=== PATIENT | female | born 1990 | race Native Hawaiian/Other Pacific Islander ===

== ENCOUNTER 2016-07-08 15:14 | Emergency (ER) | payer BC, OTHER ==
[~2016-07-08] VITALS: Ht 152.4 cm; Wt 81.6 kg
[~2016-07-08 15:14] MED LIST: ACHD5005 PO; AGM875T PO; DCS100C PO; FERR-47 PO; FRS325T PO; HYDR-34 PO; HYDR-3714 PO; IBP600T1 PO; IBUP-1773 PO; Ibuprofen PO; NITR-65 PO; OXYC-12 PO; PREN1TAB25 PO; PREN1TAB39 PO; SMT80CT PO
[2016-07-08] MEDS ORDERED: NS IV 1000 ML 1,000 ML IV ONE (16:06)
[2016-07-08 16:10] LABS: BASOPHILS % (AUTO) 0 % (0-10); EOSINOPHILS # (AUTO) 0.1 10^3/uL (0.0-0.3); EOSINOPHILS % (AUTO) 1 % (0-10); LYMPHOCYTES # (AUTO) 1.2 X 10^3 (1.0-4.0); LYMPHOCYTES % (AUTO) 14 % (12-44); MEAN CORPUSCULAR HEMOGLOBIN 28 PG (25-34); MEAN CORPUSCULAR HGB CONC 34 G/DL (32-36); MEAN CORPUSCULAR VOLUME 83 FL (80-99); MEAN PLATELET VOLUME 10.3 FL (7.4-10.4); MONOCYTES # (AUTO) 0.4 X 10^3 (0.0-1.0); MONOCYTES % (AUTO) 4 % (0-12); NEUTROPHILS # (AUTO) 6.9 X 10^3 (1.8-7.8); NEUTROPHILS % (AUTO) 80 % (42-75); PLATELET COUNT 180 10^3/uL (130-400); RED CELL DISTRIBUTION WIDTH 13.6 % (10.0-14.5); WHITE BLOOD COUNT 8.7 10^3/uL (4.3-11.0)
[2016-07-08 16:27] LABS: BILIRUBIN,URINE NEGATIVE (NEGATIVE); KETONES,URINE 3+ (NEGATIVE); LEUKOCYTE ESTERASE ,URINE 1+ (NEGATIVE); NITRITE,URINE NEGATIVE (NEGATIVE); PH,URINE 6 (5-9); PROTEIN,URINE 2+ (NEGATIVE); UROBILINOGEN,URINE 1 MG/DL (NORMAL)
[2016-07-08 16:27] LABS: ALANINE AMINOTRANSFERASE 13 U/L (0-55); ALBUMIN 3.4 G/DL (3.2-4.5); ANION GAP 11 MMOL/L (5-14); ASPARTATE AMINO TRANSFERASE 16 U/L (5-34); BILIRUBIN,TOTAL 0.4 MG/DL (0.1-1.0); BLOOD UREA NITROGEN 8 MG/DL (7-18); BUN/CREATININE RATIO 11; CARBON DIOXIDE 20 MMOL/L (21-32); CHLORIDE 108 MMOL/L (98-107); GFR ESTIMATED > 60; GLUCOSE 110 MG/DL (70-105); LIPASE 8 U/L (8-78); POTASSIUM 2.9 MMOL/L (3.6-5.0); SODIUM 139 MMOL/L (135-145); TOTAL PROTEIN 6.4 G/DL (6.4-8.2)
[2016-07-08 16:44] LABS: WBC,URINE 0-2 /HPF
[2016-07-08] MEDS ORDERED: DIPHENOXYLATE/ATROPINE 2.5MG/0.025MG (LOMOTIL) TAB PO ONE (16:45)
[2016-07-08] MEDS ORDERED: KCL 10 MEQ TAB (MICRO K) PO ONE (17:15)
--- NOTE | 2016-07-08 18:18 | Diagnostic Imaging Report ---
INDICATION: Pain COMPARISON: None available TECHNIQUE: Limited OB ultrasound dated 07/08/2016. FINDINGS: A single live intrauterine gestation is identified. position varies throughout the examination. biometrics are symmetric and consistent with an estimated gestational age of 21 weeks and 1 day. Therefore, there is an estimated due date based upon this examination of 11/17/2016. The heart rate is documented at 146 beats per minute. The cervix is within normal limits measuring 4.5 cm. The placenta is posteriorly located and on the right without evidence of placenta previa or significant fluid undermining the placenta. IMPRESSION: Single live intrauterine gestation at an estimated gestational age of 21 weeks and 1 day. Therefore, estimated due date based on this examination of 11/17/2016. No definite anomaly identified, though evaluation is limited. Recommend a full anatomic survey if a full anatomic survey has not previously been performed. Dictated by: Dictated on workstation # [id number]
--- NOTE | 2016-07-08 18:23 | ED GI ---
General Chief Complaint: Abdominal/GI Problems Stated Complaint: ABD PAIN;VOMITING Nursing Triage Note: PT REPORTS LLQ PAIN, N/V/D SINCE LAST NOC. PT REPORTS THAT SHE IS APPROX 3 MONTHS . SHE DENIES ANY BLEEDING. Sepsis Screen: No Definite Risk Source of Information: Patient Exam Limitations: No Limitations History of Present Illness Time Seen By Provider: 15:35 Initial Comments This 26-year-old woman presents to the emergency room with complaints of left lower quadrant pain with associated nausea, vomiting, and diarrhea since last night. She believes she is about 3 months . The patient is sharp in nature and is intermittent. Episodes of diarrhea tend to improve the pain. She denies any bleeding. Dr. Hastings is her assigned pipelaying fitter but she has not yet had her first obstetrical appointment. Allergies and Home Medications Allergies Coded Allergies: No Known Drug Allergies (Unverified , 06/21/13) Home Medications Diphenoxylate HCl/Atropine 1 Each Tablet #8 1 EACH PO Q4H PRN PRN DIARRHEA Prescribed by: BENY REY on 07/08/161823 Doxylamine/Pyridoxine HCl 1 Each Tablet. #30 2 EACH PO HS PRN PRN NAUSEA/ VOMITING Prescribed by: BENY REY on 07/08/161823 Review of Systems Constitutional: no symptoms reported EENTM: No Symptoms Reported Respiratory: No Symptoms Reported Cardiovascular: No Symptoms Reported Gastrointestinal: See HPI Genitourinary: See HPI Musculoskeletal: no symptoms reported Skin: no symptoms reported Psychiatric/Neurological: No Symptoms Reported Endocrine: No Symptoms Reported Past Pgznrgh-Glvgxx-Bpxvpu Hx Patient Social History Alcohol Use: Denies Use Recreational Drug Use: No Smoking Status: Never a Smoker 2nd Hand Smoke Exposure: No Recent Foreign Travel: No Contact w/Someone Who Travel: No Recent Infectious Disease Expo: No Recent Hopitalizations: No Immunizations Up To Date Tetanus Booster (TDap): Less than 5yrs Date of Influenza Vaccine: May 29, 2013 Seasonal Allergies Seasonal Allergies: No Surgeries HX Surgeries: Yes ( X3) Respiratory Hx Respiratory Disorders: No Cardiovascular Hx Cardiac Disorders: No Neurological Hx Neurological Disorders: No Reproductive System Hx Reproductive Disorders: No Female Reproductive Disorders: Ovarian Cyst Genitourinary Hx Genitourinary Disorders: No Gastrointestinal Hx Gastrointestinal Disorders: No Musculoskeletal Hx Musculoskeletal Disorders: No Endocrine Hx Endocrine Disorders: No HEENT HX ENT Disorders: No Cancer Hx Cancer: No Psychosocial Hx Psychiatric Problems: No Integumentary HX Skin/Integumentary Disorder: No Blood Transfusions Hx Blood Disorders: No Adverse Reaction to a Blood Tr: No Family Medical History Significant Family History: No Pertinent Family Hx Family Medial History: No Family History of: Abdominal aortic aneurysm Cancer Family history: Alzheimer's disease Family history: Breast disease Family history: Cardiovascular disease Family history: Diabetes mellitus Family history: Gastrointestinal disease Family history: Thyroid disorder History of - disorder Myocardial infarction Seizure disorder Stroke Physical Exam Vital Signs VS - Last 72 Hours, by Label 07/08/16 15:37 Temp 98.8 Pulse 90 Resp 16 B/P 116/60 Pulse Ox 98 O2 Delivery Room Air Capillary Refill : Less Than 3 Seconds General Appearance: WD/WN no apparent distress HEENT: PERRL/EOMI normal ENT inspection Neck: normal inspection Respiratory: lungs clear normal breath sounds no respiratory distress Cardiovascular: regular rate, rhythm no edema no murmur Gastrointestinal: normal bowel sounds soft tenderness (left lower quadrant) Extremities: normal inspection no pedal edema Neurologic/Psychiatric: machine chocolate molder II-XII nml as tested no motor/sensory deficits alert normal mood/affect oriented x 3 Skin: normal color warm/dry Progress/Results/Core Measures Results/Orders Lab Results Laboratory Tests Test 07/08/16 16:00 07/08/16 16:17 Range/Units Alanine Aminotransferase (ALT/SGPT) 13 0-55 U/L Albumin 3.4 3.2-4.5 G/DL Alkaline Phosphatase 49 40-136 U/L Anion Gap 11 5-14 MMOL/L Aspartate Amino Transf (AST/SGOT) 16 5-34 U/L BUN/Creatinine Ratio 11 Basophils # (Auto) 0.0 0.0-0.1 10^3/uL Basophils (%) (Auto) 0 0-10 % Blood Urea Nitrogen 8 7-18 MG/DL Calcium Level 8.0 L 8.5-10.1 MG/DL Carbon Dioxide Level 20 L 21-32 MMOL/L Chloride Level 108 H 98-107 MMOL/L Creatinine 0.70 0.60-1.30 MG/DL Eosinophils # (Auto) 0.1 0.0-0.3 10^3/uL Eosinophils (%) (Auto) 1 0-10 % Estimat Glomerular Filtration Rate > 60 Glucose Level 110 H 70-105 MG/DL Hematocrit 33 L 35-52 % Hemoglobin 11.2 L 11.5-16.0 G/DL Lipase 8 8-78 U/L Lymphocytes # (Auto) 1.2 1.0-4.0 X 10^3 Lymphocytes (%) (Auto) 14 12-44 % Mean Corpuscular Hemoglobin 28 25-34 PG Mean Corpuscular Hemoglobin Concent 34 32-36 G/DL Mean Corpuscular Volume 83 80-99 FL Mean Platelet Volume 10.3 7.4-10.4 FL Monocytes # (Auto) 0.4 0.0-1.0 X 10^3 Monocytes (%) (Auto) 4 0-12 % Neutrophils # (Auto) 6.9 1.8-7.8 X 10^3 Neutrophils (%) (Auto) 80 H 42-75 % Platelet Count 180 130-400 10^3/uL Potassium Level 2.9 L 3.6-5.0 MMOL/L Red Blood Count 4.00 L 4.35-5.85 10^6/uL Red Cell Distribution Width 13.6 10.0-14.5 % Serum Test, Qualitative POSITIVE NEGATIVE Sodium Level 139 135-145 MMOL/L Total Bilirubin 0.4 0.1-1.0 MG/DL Total Protein 6.4 6.4-8.2 G/DL White Blood Count 8.7 4.3-11.0 10^3/uL Urine Bacteria TRACE /HPF Urine Bilirubin NEGATIVE NEGATIVE Urine Casts NONE /LPF Urine Clarity SLIGHTLY CLOUDY Urine Color YELLOW Urine Crystals NONE /LPF Urine Culture Indicated NO Urine Glucose (UA) NEGATIVE NEGATIVE Urine Ketones 3+ H NEGATIVE Urine Leukocyte Esterase 1+ H NEGATIVE Urine Mucus MODERATE H /LPF Urine Nitrite NEGATIVE NEGATIVE Urine Protein 2+ H NEGATIVE Urine RBC NONE /HPF Urine RBC (Auto) NEGATIVE NEGATIVE Urine Specific [place] 1.025 H 1.016-1.022 Urine Squamous Epithelial Cells 5-10 /HPF Urine Urobilinogen 1 NORMAL MG/DL Urine WBC 0-2 /HPF Urine pH 6 5-9 My Orders Orders-BENY ALFONSO MD Saline Lock/Iv-Start (07/08/16 15:35) Cbc With Automated Diff (07/08/16 15:35) Comprehensive Metabolic Panel (07/08/16 15:35) Hcg,Qualitative Serum (07/08/16 15:35) Lipase (07/08/16 15:35) Ua Culture If Indicated (07/08/16 15:35) Ns Iv 1000 Ml (Sodium Chloride 0.9%) (07/08/16 16:06) Diphenoxylate/Atropine Tablet (Lomotil T (07/08/16 16:45) Potassium Chloride (Tablet) (Klor Con Ta (07/08/16 17:15) Us Ob Preg Late(14-40wks)45671 (07/08/16 17:08) Medications Given in ED Current Medications Medications Dose Ordered Sig/Kayla Route Start Time Stop Time Status Last Admin Dose Admin Diphenoxylate HCl/ Atropine 2 ea ONCE ONCE PO 07/08/16 16:45 07/08/16 16:46 DC 07/08/16 16:57 2 EA Potassium Chloride 40 meq ONCE ONCE PO 07/08/16 17:15 07/08/16 17:16 DC 07/08/16 17:29 40 MEQ Sodium Chloride 1,000 ml @ 0 mls/hr Q0M ONCE IV 07/08/16 16:06 07/08/16 16:07 DC 07/08/16 16:20 0 MLS/HR Vital Signs/I&O Vital Sign - Last 12Hours 07/08/16 15:37 Temp 98.8 Pulse 90 Resp 16 B/P 116/60 Pulse Ox 98 O2 Delivery Room Air Blood Pressure Mean: 78 Progress Note : Progress Note This patient received a liter of IV fluids. She was found to be hypokalemic and received 40 mEq of potassium orally. Ultrasound was ordered and she was found to be approximately 21 weeks gestational age with a normal viable gestation. Lomotil was given for diarrhea and cramping which did improve her symptoms. She did not require treatment for nausea. Diagnostic Imaging Diagonstic Imaging: Ultrasound Plain Films/CT/US/NM/MRI: abdomen Comments NAME: ODILON RAJAN [facility] REC#: [id number] PT STATUS: REG ER : 1990 PHYSICIAN: BENY ALFONSO MD ADMIT DATE: 07/08/16/ER Draft Date of Exam:07/08/16 US OB PREG LATE(14-40WKS)[id number] INDICATION: Pain COMPARISON: None available TECHNIQUE: Limited OB ultrasound dated 07/08/2016. FINDINGS: A single live intrauterine gestation is identified. position varies throughout the examination. biometrics are symmetric and consistent with an estimated gestational age of 21 weeks and 1 day. Therefore, there is an estimated due date based upon this examination of 11/17/2016. The heart rate is documented at 146 beats per minute. The cervix is within normal limits measuring 4.5 cm. The placenta is posteriorly located and on the right without evidence of placenta previa or significant fluid undermining the placenta. IMPRESSION: Single live intrauterine gestation at an estimated gestational age of 21 weeks and 1 day. Therefore, estimated due date based on this examination of 11/17/2016. No definite anomaly identified, though evaluation is limited. Recommend a full anatomic survey if a full anatomic survey has not previously been performed. Dictated on workstation # [id number] Dict: 07/08/16 1810 Trans: 07/08/16 1818 KB [id number] Interpreted by: SERGEI HUNT MD Departure Impression Impression: Primary Impression: Nausea vomiting and diarrhea Additional Impressions: Left lower quadrant pain Hypokalemia Disposition: HOME, SELF-CARE Condition: Improved Departure-Patient Inst. Decision time for Depature: 18:15 Referrals: OSMANI RICHARD DO (PCP/Family) Primary Care Physician Patient Instructions: Hypokalemia Add. Discharge Instructions: Drink plenty of clear liquids and gradually advance your diet as tolerated. Consume some food and beverages high in potassium. See list attached. Follow- up with your pipelaying fitter as soon as possible. Return to the emergency room if symptoms worsen. Use Diclegis as prescribed to treat nausea. Use Lomotil as prescribed to treat cramping and diarrhea. All discharge instructions reviewed with patient and/or family. Voiced understanding. Scripts Doxylamine/Pyridoxine HCl (Diclegis Dr 10-10 mg Tablet)1 Each Tablet.dr2 Each PO HS PRN NAUSEA/VOMITING #30 TAB Prov:BENY ALFONSO MD 07/08/16 Diphenoxylate HCl/Atropine (Lomotil 2.5-0.025 mg Tablet)1 Each Tablet1 Each PO Q4H PRN DIARRHEA #8 TAB Prov:BENY ALFONSO MD 07/08/16 Copy Copies To 1: ANN-MARIE HASTINGS MD, JOSHUA T MD Jul 08, 2016 18:23
[2016-07-08] MEDS ORDERED: DOXY1TAB3 PO (18:24)
[2016-07-08] MEDS ORDERED: DIPH1TAB PO (18:24)
[2016-07-08 18:34] VITALS: BP 118/74
== END 2016-07-08 18:35 | disposition home or self-care (01) ==
LOC: EDUNIT# 15:14 → ER 15:16
DX: O21.0 Mild hyperemesis gravidarum (principal); O99.612 Diseases of the digestive system complicating pregnancy, second trimester; R19.7 Diarrhea, unspecified; O26.892 Other specified pregnancy related conditions, second trimester; R10.32 Left lower quadrant pain; O99.281 Endocrine, nutritional and metabolic diseases complicating pregnancy, first trimester; E87.6 Hypokalemia; Z3A.21 21 weeks gestation of pregnancy
CPT/HCPCS: 36415; 76805; 80053; 81000; 83690; 84703; 85025; 96360

== ENCOUNTER → 2016-07-23 | Outpatient (CLI) | payer BC ==
[~2016-07-23] MED LIST changes: +DIPH1TAB PO; +DOXY1TAB3 PO
--- NOTE | 2016-07-23 13:52 | Diagnostic Imaging Report ---
INDICATION: Undergoing evaluation for anatomical evaluation. TECHNIQUE: Multiple real-time grayscale images were obtained of the gravid uterus. CORRELATION STUDY: 07/08/2016. FINDINGS: Cervical length is 5.6 cm. Fetus is currently in cephalic presentation. Normal amount of amniotic fluid. The placenta is positioned along the fundal aspect and without previa. anatomical evaluation is unremarkable. However, the spine cannot be well assessed given positioning. Biometrical measurements are as follows: Biparietal diameter 5.52 cm, age 22 weeks 6 days. Head circumference 20.21 cm, age 22 weeks 3 days. Abdominal circumference 17.82 cm, age 22 weeks 5 days. Femur length 3.96 cm, age 22 weeks 6 days. Sonographic estimated age: 22 weeks 5 days. Sonographic estimated date of delivery: 11/21/2016. heart rate: 149 BPM Estimated Weight: 526 gm (+/- 77 gm) LMP Percentile: 18% IMPRESSION: 1. Single intrauterine in a cephalic presentation. Sonographic estimated age of 22 weeks 5 days for an estimated date of delivery of November 21, 2016. No abnormality is noted at this time. However, the spine is not able to be well assessed owing to positioning. Dictated by: Dictated on workstation # [id number]
== END ==
LOC: RAD 11:41
PROVIDERS: ATTEND Family Medicine
DX: Z34.82 Encounter for supervision of other normal pregnancy, second trimester (principal)
CPT/HCPCS: 76805

== ENCOUNTER → 2016-08-20 | Outpatient (CLI) | payer BC ==
--- NOTE | 2016-08-20 14:03 | Diagnostic Imaging Report ---
INDICATION: Followup incomplete visualization of the spine. COMPARISON: 07/23/2016. DISCUSSION: Transabdominal sonographic evaluation of the gravid uterus was performed. Single live intrauterine is again demonstrated at 27 weeks 2 days by the previous ultrasound. EDC is 11/17/2016. presentation is cephalic. Normal amniotic fluid index measuring 12.8 cm. Grade 2 placenta is located within the fundus with no placenta previa. heart rate measures 124 beats per minute. There is good visualization of the spine on today's exam which appears within normal limits. No acute abnormality identified. IMPRESSION: 1. Normal appearance of the spine. Dictated by: Dictated on workstation # [id number]
== END ==
LOC: RAD 11:44
PROVIDERS: ATTEND Family Medicine
DX: Z36 Encounter for antenatal screening of mother (principal)
CPT/HCPCS: 76816

== ENCOUNTER 2017-06-01 11:52 | Emergency (ER) | payer BC ==
[~2017-06-01] VITALS: Ht 152.4 cm; Wt 83.9 kg
--- OUTSIDE RECORDS SUMMARY | 2017-06-01 12:09 | XMS REPORT ---
Author Author ANN-MARIE HASTINGS [facility] e[employer] Address Unknown Phone Unavailable Care Team Providers Care Labor Operator Name Role Phone ANN-MARIE HASTINGS Unavailable Allergies No Known Allergies Problems Problem Type Condition Code Onset Dates Condition Status Problem Trichomonal vulvovaginitis 131.01 Active Medications No Known Medications Results No Known Results Summary Purpose eClinicalWorks Submission
--- OUTSIDE RECORDS SUMMARY | 2017-06-01 12:10 | XMS REPORT ---
Author Author MAHESH MATTHEW [facility] eClinical[employer] Address Unknown Phone Unavailable Care Team Providers Care Crown Pouncer Name Role Phone MAHESH MATTHEW CP Unavailable Allergies, Adverse Reactions, Alerts Substance Reaction Event Type N.K.D.A. Info Not Available Non Drug Allergy Problems Problem Type Condition Code Onset Dates Condition Status Assessment Sprain of unspecified ligament of right ankle, subsequent encounter S93.401D Active Problem Trichomonal vulvovaginitis 131.01 Active Medications No Known Medications Procedures Procedure Coding System Code Date Office Visit, Est Pt., Level 3 CPT-4 42485 Feb 13, 2015 Vital Signs Date/Time: Feb 13, 2015 Temperature 98.7 F Weight 221.8 lbs Height 60 in BMI 43.31 Index Blood Pressure Diastolic 80 mmHg Blood Pressure Systolic 100 mmHg Cardiac Monitoring Heart Rate 84 bpm Results No Known Results Summary Purpose eClinicalWorks Submission
--- OUTSIDE RECORDS SUMMARY | 2017-06-01 12:10 | XMS REPORT ---
Author Author ANN-MARIE HASTINGS [facility] eClinical[employer] Address Unknown Phone Unavailable Care Team Providers Care Printing Film Stripper Name Role Phone ANN-MARIE HASTINGS CP Unavailable Allergies, Adverse Reactions, Alerts Substance Reaction Event Type N.K.D.A. Info Not Available Non Drug Allergy Problems Problem Type Condition ICD-9 Code Onset Dates Condition Status Assessment Routine follow-up V24.2 Active Assessment Encounter for Depo-Provera contraception V25.49 Active Problem Trichomonal vulvovaginitis 131.01 Active Medications No Known Medications Procedures Procedure Coding System Code Date Office Visit, Est Pt., Level 3 CPT-4 71883 Jan 03, 2015 DEPO PROVERA (150 MG/ML) CPT-4 J1050 Jan 03, 2015 URINE TEST CPT-4 17246 Jan 03, 2015 THER/PROPH/DIAG INJ, SC/IM CPT-4 63795 Jan 03, 2015 Vital Signs Date/Time: Jan 03, 2015 Temperature 97.0 F Weight 214.8 lbs Height 60 in BMI 41.95 Index Blood Pressure Diastolic 74 mmHg Blood Pressure Systolic 110 mmHg Cardiac Monitoring Heart Rate 80 bpm Results Name Result Date Reference Range Unit Abnormality Flag TEST, URINE (IN HOUSE) Summary Purpose eClinicalWorks Submission
--- OUTSIDE RECORDS SUMMARY | 2017-06-01 12:10 | XMS REPORT ---
Author Author ANN-MARIE HASTINGS [facility] Address [address] [place] [address] Care Team Providers Care Industrial Sociologist Name Role Phone ANN-MARIE HASTINGS Unavailable PROBLEMS Type Condition ICD9-CM Code [id number]-GW Code Onset Dates Condition Status SNOMED Code Problem Urinary tract infection affecting care of mother in second trimester, antepartum O23.42 Active 833702257 Problem History of delivery affecting O34.219 Active 226528572 Problem care, subsequent in second trimester Z34.82 Active 738771897 Problem Other specified diseases and conditions complicating , childbirth and the puerperium O99.89 Active 476906946 ALLERGIES No Information SOCIAL HISTORY Never Assessed PLAN OF CARE VITAL SIGNS MEDICATIONS Unknown Medications RESULTS No Results PROCEDURES No Known procedures IMMUNIZATIONS No Known Immunizations MEDICAL (GENERAL) HISTORY Type Description Date Surgical History C section X 4 Surgical History salpingo-oophorectomy 2015 Hospitalization History childbirth only
--- OUTSIDE RECORDS SUMMARY | 2017-06-01 12:10 | XMS REPORT ---
Author Author ANN-MARIE HASTINGS [facility] Address [address] [place] [address] Care Team Providers Care Pmo Manager Name Role Phone ANN-MARIE HASTINGS Unavailable PROBLEMS Type Condition ICD9-CM Code ZFW34-OA Code Onset Dates Condition Status SNOMED Code Problem Urinary tract infection affecting care of mother in second trimester, antepartum O23.42 Active 566793621 Problem History of delivery affecting O34.219 Active 461549289 Problem care, subsequent in second trimester Z34.82 Active 253887623 Problem Other specified diseases and conditions complicating , childbirth and the puerperium O99.89 Active 778297680 ALLERGIES No Information SOCIAL HISTORY Never Assessed PLAN OF CARE VITAL SIGNS MEDICATIONS Unknown Medications RESULTS No Results PROCEDURES No Known procedures IMMUNIZATIONS No Known Immunizations MEDICAL (GENERAL) HISTORY Type Description Date Surgical History C section X 4 Surgical History salpingo-oophorectomy 2015 Hospitalization History childbirth only
--- OUTSIDE RECORDS SUMMARY | 2017-06-01 12:10 | XMS REPORT ---
Author Author TATYANA PALOMINO [facility] e[employer] Address Unknown Phone Unavailable Care Team Providers Care Graphic Artist Name Role Phone TATYANA PALOMINO Unavailable Allergies, Adverse Reactions, Alerts Substance Reaction Event Type N.K.D.A. Info Not Available Non Drug Allergy Problems Problem Type Condition Code Onset Dates Condition Status Assessment Irregular bleeding N92.6 Active Assessment Encounter for Depo-Provera contraception Z30.42 Active Problem Surveillance of contraceptive injection Z30.42 Active Assessment Screening for malignant neoplasm of cervix Z12.4 Active Assessment Surveillance of contraceptive injection Z30.42 Active Assessment Routine screening for STI (sexually transmitted infection) Z11.3 Active Medications Medication Code System Code Instructions Start Date End Date Status Dosage Depo-Provera [facility] [address]-09 150 MG/ML Intramuscular Once every 3 months May 20, 2015 1 ml Procedures Procedure Coding System Code Date No Charge CPT-4 49205 May 20, 2015 TRICHOMONAS ASSAY W/OPTIC CPT-4 91500 May 20, 2015 URINE TEST CPT-4 29494 May 20, 2015 Office Visit, Est Pt., Level 3 CPT-4 25555 May 20, 2015 SPECIMEN HANDLING CPT-4 11429 May 20, 2015 THER/PROPH/DIAG INJ, SC/IM CPT-4 49027 May 20, 2015 DEPO PROVERA (150 MG/ML) CPT-4 J1050 May 20, 2015 Vital Signs Date/Time: May 20, 2015 Temperature 97.3 F Weight 232.6 lbs Height 60 in BMI 45.42 Index Blood Pressure Diastolic 68 mmHg Blood Pressure Systolic 104 mmHg Cardiac Monitoring Heart Rate 82 bpm Results Name Result Date Reference Range Unit Abnormality Flag TEST, URINE (IN HOUSE) ----RESULTS Negative [id number] ----Lot # [id number] ----Control + [id number] ----Exp date [id number] Summary Purpose eClinicalWorks Submission
--- OUTSIDE RECORDS SUMMARY | 2017-06-01 12:10 | XMS REPORT ---
Author Author OSMANI RICHARD [facility] Address [address] [place] [address] Care Team Providers Care Curb Worker Name Role Phone OSMANI RICHARD Unavailable PROBLEMS Type Condition ICD9-CM Code GWD42-GZ Code Onset Dates Condition Status SNOMED Code Problem Urinary tract infection affecting care of mother in second trimester, antepartum O23.42 Active 025456716 Problem History of delivery affecting O34.219 Active 906045944 Problem care, subsequent in second trimester Z34.82 Active 828900006 Problem Other specified diseases and conditions complicating , childbirth and the puerperium O99.89 Active 391550665 ALLERGIES No Known Allergies SOCIAL HISTORY Never Assessed PLAN OF CARE VITAL SIGNS MEDICATIONS Unknown Medications RESULTS No Results PROCEDURES No Known procedures IMMUNIZATIONS No Known Immunizations MEDICAL (GENERAL) HISTORY Type Description Date Surgical History C section X 4 Surgical History salpingo-oophorectomy 2015 Hospitalization History childbirth only
--- OUTSIDE RECORDS SUMMARY | 2017-06-01 12:10 | XMS REPORT ---
Author Author OSMANI RICHARD [facility] Address [address] [place] [address] Care Team Providers Care Seat Cover Installer Name Role Phone OSMANI RICHARD Unavailable PROBLEMS Type Condition ICD9-CM Code UVW72-UC Code Onset Dates Condition Status SNOMED Code Problem Urinary tract infection affecting care of mother in second trimester, antepartum O23.42 Active 347793170 Problem History of delivery affecting O34.219 Active 205295364 Problem care, subsequent in second trimester Z34.82 Active 045093324 Problem Other specified diseases and conditions complicating , childbirth and the puerperium O99.89 Active 439960936 ALLERGIES Unknown Allergies SOCIAL HISTORY No smoking Hx information available PLAN OF CARE VITAL SIGNS MEDICATIONS Unknown Medications RESULTS Name Result Date Reference Range TEST, URINE (IN HOUSE) 2016-06-15 RESULTS POSITIVE Lot # [id number] Control + Exp date PROCEDURES Procedure Date Ordered Related Diagnosis Body Site URINE TEST Jun 15, 2016 IMMUNIZATIONS No Known Immunizations
--- OUTSIDE RECORDS SUMMARY | 2017-06-01 12:10 | XMS REPORT ---
Author Author MAHESH MATTHEW Organization [employer] Address Unknown Phone Unavailable Care Team Providers Care Commercial Relationship Manager Name Role Phone MAHESH MATTHEW CP Unavailable Allergies, Adverse Reactions, Alerts Substance Reaction Event Type N.K.D.A. Info Not Available Non Drug Allergy Problems Problem Type Condition Code Onset Dates Condition Status Assessment Ankle pain, right M25.571 Active Problem Trichomonal vulvovaginitis 131.01 Active Medications No Known Medications Procedures Procedure Coding System Code Date Office Visit, Est Pt., Level 3 CPT-4 69036 Feb 27, 2015 Vital Signs Date/Time: Feb 27, 2015 Temperature 98.7 F Weight 226 lbs Height 60 in BMI 44.13 Index Blood Pressure Diastolic 70 mmHg Blood Pressure Systolic 110 mmHg Cardiac Monitoring Heart Rate 80 bpm Results No Known Results Summary Purpose eClinicalWorks Submission
--- OUTSIDE RECORDS SUMMARY | 2017-06-01 12:10 | XMS REPORT ---
Author Author ANN-MARIE HASTINGS [facility] Address [address] [place] [address] Care Team Providers Care Riveter Pneumatic Name Role Phone ANN-MARIE HASTINGS Unavailable PROBLEMS Type Condition ICD9-CM Code GGW52-FR Code Onset Dates Condition Status SNOMED Code Problem Urinary tract infection affecting care of mother in second trimester, antepartum O23.42 Active 501580146 Problem History of delivery affecting O34.219 Active 611728393 Problem care, subsequent in second trimester Z34.82 Active 493002019 Problem Other specified diseases and conditions complicating , childbirth and the puerperium O99.89 Active 127992629 ALLERGIES No Information SOCIAL HISTORY Never Assessed PLAN OF CARE VITAL SIGNS MEDICATIONS Unknown Medications RESULTS No Results PROCEDURES No Known procedures IMMUNIZATIONS No Known Immunizations MEDICAL (GENERAL) HISTORY Type Description Date Surgical History C section X 4 Surgical History salpingo-oophorectomy 2015 Hospitalization History childbirth only
--- OUTSIDE RECORDS SUMMARY | 2017-06-01 12:10 | XMS REPORT ---
Author Author JANIS ROGEL [facility] Address [address] [place] [address] Care Team Providers Care Cartridge Assembler Name Role Phone JANIS ROGEL Unavailable PROBLEMS Type Condition ICD9-CM Code [id number] Code Onset Dates Condition Status SNOMED Code Problem Urinary tract infection affecting care of mother in second trimester, antepartum O23.42 Active 246510020 Problem History of delivery affecting O34.219 Active 157595605 Problem care, subsequent in second trimester Z34.82 Active 993842340 Problem Other specified diseases and conditions complicating , childbirth and the puerperium O99.89 Active [id number] ALLERGIES No Information SOCIAL HISTORY Never Assessed PLAN OF CARE VITAL SIGNS MEDICATIONS Unknown Medications RESULTS No Results PROCEDURES Procedure Date Ordered Result Body Site Billing Notes on claim September 04, 2016 IMMUNIZATIONS No Known Immunizations MEDICAL (GENERAL) HISTORY Type Description Date Surgical History C section X 4 Surgical History salpingo-oophorectomy 2015 Hospitalization History childbirth only
--- OUTSIDE RECORDS SUMMARY | 2017-06-01 12:11 | XMS REPORT | Continuity of Care Document ---
Author Author [facility] Address Unknown Phone Unavailable Allergies Active Description Code Type Severity Reaction Onset Reported/Identified Relationship to Patient Clinical Status Yes No Known Drug Allergies [id number] Drug Allergy Unknown N/A 06/21/2013 Medications There is no data. Problems Date Dx Coded Attending Type Code Diagnosis Diagnosed By 09/04/2010 VICKIE GOLDBERG EVY A V72.41 Test Negative Result 09/04/2010 VICKIEGRISELDA GOLDBERG, EVY A V72.41 Test Negative Result 09/04/2010 ROSS RICHARD DOA K V72.41 Test Negative Result 09/04/2010 VICKIEGRISELDA GOLDBERG EVY A V72.41 Test Negative Result 09/04/2010 VICKIEGRISELDA GOLDBERG, EVY A V72.41 Test Negative Result 09/04/2010 VICKIEGRISELDA GOLDBERG, EVY A V72.41 Test Negative Result 09/04/2010 ANN-MARIE HASTINGS MD V72.41 Test Negative Result 05/19/2011 VICKIE MACHINE STOPPAGE FREQUENCY CHECKER, EVY A V04.81 FLU DX (3 YRS AND ABOVE, IM) 05/19/2011 VICKIE APRN, EVY A V22.1 , NORMAL OTHER 05/19/2011 VICKIE APRN, EVY A V72.42 Test Positive Result 05/19/2011 VICKIE APRN, EVY A V04.81 FLU DX (3 YRS AND ABOVE, IM) 05/19/2011 VICKIE APRN, EVY A V22.1 , NORMAL OTHER 05/19/2011 VICKIE APRN, EVY A V72.42 Test Positive Result 05/19/2011 RICHARD ROSS CALDWELLA K V04.81 FLU DX (3 YRS AND ABOVE, IM) 05/19/2011 RICHARD ROSS CALDWELLA K V22.1 , NORMAL OTHER 05/19/2011 RICHARD DO OSMANI K V72.42 Test Positive Result 05/19/2011 VICKIE GOLDBERG, EVY A V04.81 FLU DX (3 YRS AND ABOVE, IM) 05/19/2011 VICKIE MCKEONN, EVY A V22.1 , NORMAL OTHER 05/19/2011 VICKIE MCKEONN, EVY A V72.42 Test Positive Result 05/19/2011 VICKIE GOLDBERG, EVY A V04.81 FLU DX (3 YRS AND ABOVE, IM) 05/19/2011 VICKIE MCKEONN, EVY A V22.1 , NORMAL OTHER 05/19/2011 VICKIE GOLDBERG, EVY A V72.42 Test Positive Result 05/19/2011 VICKIE GOLDBERG, EVY A V04.81 FLU DX (3 YRS AND ABOVE, IM) 05/19/2011 VICKIE GOLDBERG, EVY A V22.1 , NORMAL OTHER 05/19/2011 VICKIE GOLDBERG, EVY A V72.42 Test Positive Result 05/19/2011 ANN-MARIE HASTINGS MD V04.81 FLU DX (3 YRS AND ABOVE, IM) 05/19/2011 AN-NMARIE HASTINGS MD V22.1 , NORMAL OTHER 05/19/2011 ANN-MARIE HASTINGS MD V72.42 Test Positive Result 05/30/2011 VICKIEEVY VILLALOBOS APRN A V04.3 RUBELLA NON-IMMUNE - NEED FOR VACCINATION 05/30/2011 VICKIEEVY Peter APRN A V04.3 RUBELLA NON-IMMUNE - NEED FOR VACCINATION 05/30/2011 OSMANI RICHARD DO V04.3 RUBELLA NON-IMMUNE - NEED FOR VACCINATION 05/30/2011 EVY JOHNSTON APRN A V04.3 RUBELLA NON-IMMUNE - NEED FOR VACCINATION 05/30/2011 EVY JOHNSTON APRN A V04.3 RUBELLA NON-IMMUNE - NEED FOR VACCINATION 05/30/2011 EVY JOHNSTON APRN A V04.3 RUBELLA NON-IMMUNE - NEED FOR VACCINATION 05/30/2011 ANN-MARIE HASTINGS MD V04.3 RUBELLA NON-IMMUNE - NEED FOR VACCINATION 06/05/2011 EVY JOHNSTON APRN A 131.01 VAGINITIS (TRICHOMONAS VAGINALIS) 06/05/2011 EVY JOHNSTON APRN A 616.10 Vaginitis Vulvovaginitis Unspecified 06/05/2011 EVY JOHNSTON APRN A V74.5 Std Screen 06/05/2011 EVY JOHNSTON APRN A V76.2 Cervical Cancer Screening (pap Smear) 06/05/2011 EVY JOHNSTON APRN A 131.01 VAGINITIS (TRICHOMONAS VAGINALIS) 06/05/2011 EVY JOHNSTON APRN A 616.10 Vaginitis Vulvovaginitis Unspecified 06/05/2011 EVY JOHNSTON APRN A V74.5 Std Screen 06/05/2011 EVY JOHNSTON APRN A V76.2 Cervical Cancer Screening (pap Smear) 06/05/2011 OSMANI RICHARD DO 131.01 VAGINITIS (TRICHOMONAS VAGINALIS) 06/05/2011 OSMANI RICHARD DO 616.10 Vaginitis Vulvovaginitis Unspecified 06/05/2011 OSMANI RICHARD DO V74.5 Std Screen 06/05/2011 OSMANI RICHARD DO V76.2 Cervical Cancer Screening (pap Smear) 06/05/2011 EVY JOHNSTON APRN A 131.01 VAGINITIS (TRICHOMONAS VAGINALIS) 06/05/2011 EVY JOHNSTON APRN A 616.10 Vaginitis Vulvovaginitis Unspecified 06/05/2011 EVY JOHNSTON APRN A V74.5 Std Screen 06/05/2011 EVY JOHNSTON APRN A V76.2 Cervical Cancer Screening (pap Smear) 06/05/2011 EVY JOHNSTON APRN A 131.01 VAGINITIS (TRICHOMONAS VAGINALIS) 06/05/2011 VICKIE GOLDBERG, EVY A 616.10 Vaginitis Vulvovaginitis Unspecified 06/05/2011 EVY JOHNSTON APRN A V74.5 Std Screen 06/05/2011 EVY JOHNSTON APRN A V76.2 Cervical Cancer Screening (pap Smear) 06/05/2011 EVY JOHNSTON APRN A 131.01 VAGINITIS (TRICHOMONAS VAGINALIS) 06/05/2011 EVY JOHNSTON APRN A 616.10 Vaginitis Vulvovaginitis Unspecified 06/05/2011 EVY JOHNSTON APRN V74.5 Std Screen 06/05/2011 EVY JOHNSTON APRN V76.2 Cervical Cancer Screening (pap Smear) 06/05/2011 ANN-MARIE HASTINGS MD 131.01 VAGINITIS (TRICHOMONAS VAGINALIS) 06/05/2011 ANN-MARIE HASTINGS MD 616.10 Vaginitis Vulvovaginitis Unspecified 06/05/2011 ANN-MARIE HASTINGS MD V74.5 Std Screen 06/05/2011 ANN-MARIE HASTINGS MD V76.2 Cervical Cancer Screening (pap Smear) 06/24/2011 EVY JOHNSTON APRN V77.1 Diabetes Screening 06/24/2011 EVY JOHNSTON APRN V78.0 Anemia Screening 06/24/2011 EVY JOHNSTON APRN V77.1 Diabetes Screening 06/24/2011 EVY JOHNSTON APRN V78.0 Anemia Screening 06/24/2011 OSMANI RICHARD DO K V77.1 Diabetes Screening 06/24/2011 OSMANI RICHARD DO K V78.0 Anemia Screening 06/24/2011 EVY JOHNSTON APRN V77.1 Diabetes Screening 06/24/2011 EVY JOHNSTON APRN V78.0 Anemia Screening 06/24/2011 EVY JOHNSTON APRN A V77.1 Diabetes Screening 06/24/2011 EVY JOHNSTON APRN V78.0 Anemia Screening 06/24/2011 EVY JOHNSTON APRN V77.1 Diabetes Screening 06/24/2011 EVY JOHNSTON APRN A V78.0 Anemia Screening 06/24/2011 ANN-MARIE HASTINGS MD V77.1 Diabetes Screening 06/24/2011 AN-NMARIE HASTINGS MD V78.0 Anemia Screening 07/07/2011 Ot 276.8 HYPOPOTASSEMIA 07/07/2011 Ot 285.9 ANEMIA NOS 07/07/2011 Ot 486 PNEUMONIA, ORGANISM NOS 07/07/2011 Ot 648.23 ANEMIA- ANTEPARTUM 07/07/2011 Ot 648.93 OTH CURR COND-ANTEPARTUM 07/08/2011 VICKIE MACHINE STOPPAGE FREQUENCY CHECKER, EVY A V23.7 , HIGH RISK W/ INSUFFICIENT CARE 07/08/2011 VICKIE APRN, EVY A V23.7 , HIGH RISK W/ INSUFFICIENT CARE 07/08/2011 OSMANI RICHARD DO V23.7 , HIGH RISK W/ INSUFFICIENT CARE 07/08/2011 VICKIE APRN, EVY A V23.7 , HIGH RISK W/ INSUFFICIENT CARE 07/08/2011 VICKIE APRN, EVY A V23.7 , HIGH RISK W/ INSUFFICIENT CARE 07/08/2011 VICKIE APRN, EVY A V23.7 , HIGH RISK W/ INSUFFICIENT CARE 07/08/2011 ANN-MARIE HASTINGS MD V23.7 , HIGH RISK W/ INSUFFICIENT CARE 07/27/2011 VICKIEEVY Peter APRN A 654.20 PREVIOUS 07/27/2011 VICKIE GOLDBERG, EVY A 654.20 PREVIOUS 07/27/2011 OSMANI RICHARD DO 654.20 PREVIOUS 07/27/2011 VICKIE APRN, EVY A 654.20 PREVIOUS 07/27/2011 VICKIE APRN, EVY A 654.20 PREVIOUS 07/27/2011 VICKIE GOLDBERG, EVY A 654.20 PREVIOUS 07/27/2011 ANN-MARIE HASTINGS MD 654.20 PREVIOUS 08/19/2011 VICKIE GOLDBERG, EVY A 658.00 OLIGOHYDRAMNIOS 08/19/2011 VICKIE GOLDBERG, EVY A 658.00 OLIGOHYDRAMNIOS 08/19/2011 OSMANI RICHARD DO 658.00 OLIGOHYDRAMNIOS 08/19/2011 VICKIE GOLDBERG, EVY A 658.00 OLIGOHYDRAMNIOS 08/19/2011 VICKIE GOLDBERG, EVY A 658.00 OLIGOHYDRAMNIOS 08/19/2011 VICKIE APRN, EVY A 658.00 OLIGOHYDRAMNIOS 08/19/2011 ANN-MARIE HASTINGS MD 658.00 OLIGOHYDRAMNIOS 08/23/2011 Ot 285.1 AC POSTHEMORRHAG ANEMIA 08/23/2011 Ot 648.22 ANEMIA- DELIVERED W P/P 08/23/2011 Ot 654.21 PREV DELIVRY W/ OR W/O MENT ANT 08/23/2011 Ot 658.01 OLIGOHYDRAMNIOS-DELIVER 08/23/2011 Ot V23.7 INSUFFICIENT CARE 08/23/2011 Ot V27.0 DELIVER- SINGLE LIVEBORN 05/29/2013 EVY JOHNSTON APRN A V06.1 TDAP DX 05/29/2013 EVY JOHNSTON APRN A V28.6 GBS SCREENING 05/29/2013 STEPH JOHNSTON APRNIDI A V74.5 STD SCREEN 05/29/2013 OSMANI RICHARD DO V06.1 TDAP DX 05/29/2013 JOSE MANUEL CALDWELL OSMANI K V28.6 GBS SCREENING 05/29/2013 JOSE MANUEL CALDWELL OSMANI K V74.5 STD SCREEN 05/29/2013 EVY JOHNSTON APRN A V06.1 TDAP DX 05/29/2013 VICKIE GOLDBERG EVY A V28.6 GBS SCREENING 05/29/2013 VICKIE GOLDBERG EVY A V74.5 STD SCREEN 05/29/2013 EVY JOHNSTON APRN A V06.1 TDAP DX 05/29/2013 EVY JOHNSTON APRN A V28.6 GBS SCREENING 05/29/2013 EVY JOHNSTON APRN A V74.5 STD SCREEN 05/29/2013 EVY JOHNSTON APRN A V06.1 TDAP DX 05/29/2013 EVY JOHNSTON APRN A V28.6 GBS SCREENING 05/29/2013 VICKIE MACHINE STOPPAGE FREQUENCY CHECKER, EVY A V74.5 STD SCREEN 05/29/2013 ANN-MARIE HASTINGS MD V06.1 TDAP DX 05/29/2013 ANN-MARIE HASTINGS MD V28.6 GBS SCREENING 05/29/2013 ANN-MARIE HASTINGS MD V74.5 STD SCREEN 07/01/2013 AVA LAKE DO Ot 285.1 AC POSTHEMORRHAG ANEMIA 07/01/2013 [place] DO Ot 646.81 PREG COMPL NEC-DELIVERED 07/01/2013 [place] DO Ot 648.21 ANEMIA-DELIVERED 07/01/2013 [place] DO Ot 654.21 PREV DELIVRY W/ OR W/O MENT ANT 07/01/2013 JAYA CALDWELL AVA Rodriguez Ot 790.22 IMPAIRED GLUCOSE TOLERANCE TEST (ORAL) 07/01/2013 JAYA CALDWELL AVA Rodriguez Ot V06.4 TRA-[id number]-[id number] 07/01/2013 JAYA CALDWELL AVA Rodriguez Ot V15.81 HX OF PAST NONCOMPLIANCE 07/01/2013 JAYA CALDWELL AVA Rodriguez Ot V27.0 DELIVER-SINGLE LIVEBORN 12/09/2013 JAYA DO AVA Rodriguez Ot 278.00 OBESITY, NOS 12/09/2013 JAYA CALDWELL AVA Rodriguez Ot 285.9 ANEMIA NOS 12/09/2013 JAYA CALDWELL AVA Rodriguez Ot 568.81 HEMOPERITONEUM 12/09/2013 JAYA CALDWELL AVA Jennifer Ot 633.10 TUBAL PREG W/O INTRAUTERINE 12/09/2013 JAYA CALDWELL AVA Rodriguez Ot V85.37 BODY MASS INDEX 37.0-37.9, ADULT 12/11/2013 EVY JOHNSTON APRN V25.09 CONTRACEPTIVE COUNSELING - GENERAL 12/11/2013 EVY JOHNSTON APRN V25.09 CONTRACEPTIVE COUNSELING - GENERAL 12/11/2013 EVY JOHNSTON APRN V25.09 CONTRACEPTIVE COUNSELING - GENERAL 12/11/2013 ANN-MARIE HASTINGS MD V25.09 CONTRACEPTIVE COUNSELING - GENERAL 07/24/2014 EVY JOHNSTON APRN V72.42 TEST POSITIVE RESULT 07/24/2014 EVY JOHNSTON APRN V72.42 TEST POSITIVE RESULT 07/24/2014 ANN-MARIE HASTINGS MD V72.42 TEST POSITIVE RESULT 08/02/2014 Ot V22.1 08/02/2014 Ot V23.7 08/02/2014 Ot V28.89 08/02/2014 Ot 658.03 08/02/2014 EVY JOHNSTON APRN Ot V28.81 08/02/2014 [place] DO Ot 654.23 08/02/2014 JOEYAVA MARIE DO Ot V72.63 08/02/2014 JAYA CALDWELL AVA Jenniefr Ot V74.8 08/07/2014 EVY JOHNSTON APRN V76.2 CERVICAL CANCER SCREENING (PAP SMEAR) 08/07/2014 ANN-MARIE HASTINGS MD V76.2 CERVICAL CANCER SCREENING (PAP SMEAR) 08/22/2014 Ot V22.1 08/22/2014 Ot V23.7 08/22/2014 Ot V28.89 08/22/2014 Ot 658.03 08/22/2014 VICKIE, EVY A MACHINE STOPPAGE FREQUENCY CHECKER Ot V28.81 08/22/2014 FENECH DO, AVA S Ot 654.23 08/22/2014 FENECH DO, AVA S Ot V72.63 08/22/2014 FENECH DO, AVA S Ot V74.8 08/22/2014 VICKIE, EVY A MACHINE STOPPAGE FREQUENCY CHECKER Ot V23.7 08/22/2014 VICKIE, EVY A MACHINE STOPPAGE FREQUENCY CHECKER Ot V28.89 08/22/2014 VICKIE, EVY A MACHINE STOPPAGE FREQUENCY CHECKER Ot V23.7 08/22/2014 VICKIE, EVY A MACHINE STOPPAGE FREQUENCY CHECKER Ot V28.89 09/19/2014 VICKIE, EVY A MACHINE STOPPAGE FREQUENCY CHECKER Ot V23.7 09/19/2014 VICKIE, EVY A MACHINE STOPPAGE FREQUENCY CHECKER Ot V28.89 09/19/2014 VICKIE, EVY A MACHINE STOPPAGE FREQUENCY CHECKER Ot V23.7 09/19/2014 VICKIE, EVY A MACHINE STOPPAGE FREQUENCY CHECKER Ot V28.89 09/28/2014 VICKIE, EVY A MACHINE STOPPAGE FREQUENCY CHECKER Ot V23.7 09/28/2014 VICKIE, EVY A MACHINE STOPPAGE FREQUENCY CHECKER Ot V28.89 09/28/2014 VICKIE, EVY A MACHINE STOPPAGE FREQUENCY CHECKER Ot V23.7 09/28/2014 VICKIE, EVY A MACHINE STOPPAGE FREQUENCY CHECKER Ot V28.89 11/06/2014 Ot V22.1 11/06/2014 Ot V23.7 11/06/2014 Ot V28.89 11/06/2014 Ot 658.03 11/06/2014 VICKIE, EVY A MACHINE STOPPAGE FREQUENCY CHECKER Ot V28.81 11/06/2014 [facility] 654.23 11/06/2014 FENECH DO, AVA S Ot V72.63 11/06/2014 FENECH DO, AVA S Ot V74.8 11/06/2014 VICKIE, EVY A MACHINE STOPPAGE FREQUENCY CHECKER Ot V23.7 11/06/2014 VICKIE, EVY A MACHINE STOPPAGE FREQUENCY CHECKER Ot V28.89 11/06/2014 EVY JOHNSTON MACHINE STOPPAGE FREQUENCY CHECKER Ot V23.7 11/06/2014 VICKIEEVY MACHINE STOPPAGE FREQUENCY CHECKER Ot V28.89 11/15/2014 Ot V22.1 11/15/2014 Ot V23.7 11/15/2014 Ot V28.89 11/15/2014 Ot 658.03 11/15/2014 VICKIESTEPHEVY [place] MACHINE STOPPAGE FREQUENCY CHECKER Ot V28.81 11/15/2014 [place] DO Ot 654.23 11/15/2014 [facility] Ot V72.63 11/15/2014 [facility] AVA CALDWELL Ot V74.8 11/15/2014 VICKIE EVY [place] MACHINE STOPPAGE FREQUENCY CHECKER Ot V23.7 11/15/2014 VICKIEEVY MACHINE STOPPAGE FREQUENCY CHECKER Ot V28.89 11/15/2014 VICKIEEVY MACHINE STOPPAGE FREQUENCY CHECKER Ot V23.7 11/15/2014 VICKIEEVY ASHLYN Ot V28.89 11/24/2014 AVA [place] DO Ot 278.01 MORBID OBESITY 11/24/2014 [place]A [place] DO Ot 649.11 OBESITY COMP PREG/CHILDBIRTH/PUERPERIUM, 11/24/2014 [place]A [place] DO Ot 654.21 PREV DELIVRY W/ OR W/O MENT ANT 11/24/2014 AVA [place] DO Ot V06.1 EGTEVCBNSX-IMGKSGX-NCFOFGPCW, COMBINED [ 11/24/2014 [place] DO Ot V23.7 INSUFFICIENT CARE 11/24/2014 [place] DO Ot V27.0 DELIVER-SINGLE LIVEBORN 11/24/2014 [place] DO Ot V85.41 BODY MASS INDEX 40.0-44.9, ADULT 11/28/2014 Ot V22.1 11/28/2014 Ot V23.7 11/28/2014 Ot V28.89 11/28/2014 Ot 658.03 11/28/2014 VICKIE EVY Abdi MACHINE STOPPAGE FREQUENCY CHECKER Ot V28.81 11/28/2014 [place] DO Ot 654.23 11/28/2014 [place] DO Ot V72.63 11/28/2014 [place] DO Ot V74.8 11/28/2014 EVY JOHNSTON MACHINE STOPPAGE FREQUENCY CHECKER Ot V23.7 11/28/2014 VICKIEEVY VILLALOBOS MACHINE STOPPAGE FREQUENCY CHECKER Ot V28.89 11/28/2014 EVY JOHNSTON MACHINE STOPPAGE FREQUENCY CHECKER Ot V23.7 11/28/2014 VICKIEEVY VILLALOBOS MACHINE STOPPAGE FREQUENCY CHECKER Ot V28.89 11/28/2014 FENECH DO, AVA S Ot 654.23 11/28/2014 FENECH DO, AVA S Ot V72.84 11/28/2014 FENECH DO, AVA S Ot V74.8 11/28/2014 FENECH DO, AVA S Ot 654.23 11/28/2014 FENECH DO, AVA S Ot V72.84 11/28/2014 FENECH DO, AVA S Ot V74.8 11/28/2014 FENECH DO, AVA S Ot 654.23 11/28/2014 FENECH DO, AVA S Ot V72.84 11/28/2014 FENECH DO, AVA S Ot V74.8 12/29/2014 FENECH DO, AVA S Ot 654.23 12/29/2014 FENECH DO, AVA S Ot V72.84 12/29/2014 FENECH DO, AVA S Ot V74.8 12/29/2014 FENECH DO, AVA S Ot 654.23 12/29/2014 FENECH DO, AVA S Ot V72.84 12/29/2014 FENECH DO, AVA S Ot V74.8 01/28/2015 FENECH DO, AVA S Ot 654.23 01/28/2015 FENECH DO, AVA S Ot V72.84 01/28/2015 FENECH DO, AVA S Ot V74.8 02/11/2015 NATY ROLDAN, BENY Tomlin Ot M25.571 PAIN IN RIGHT ANKLE AND JOINTS OF RIGHT 02/11/2015 BENY ALFONSO MD, Ot S93.401A SPRAIN OF UNSPECIFIED LIGAMENT OF RIGHT 02/11/2015 NATY ROLDAN, BENY Tomlin Ot W50.2XXA ACCIDENTAL TWIST BY ANOTHER PERSON, INIT 02/11/2015 BENY ALFONSO MD, Ot Y92.[address] IN SINGLE-FAMILY (PRIVATE) 02/11/2015 BENY ALFONSO MD, Ot Y93.01 ACTIVITY, WALKING, MARCHING AND HIKING 02/11/2015 NATY ROLDAN, BENY Tomlin Ot Y99.8 OTHER EXTERNAL CAUSE STATUS 02/11/2015 Ot V22.1 02/11/2015 Ot V23.7 02/11/2015 Ot V28.89 02/11/2015 Ot 658.03 02/11/2015 VICKIE EVY [place] MACHINE STOPPAGE FREQUENCY CHECKER Ot V28.81 02/11/2015 FENECH DO, AVA S Ot 654.23 02/11/2015 FENECH DO, AVA S Ot V72.63 02/11/2015 FENECH DO, AVA S Ot V74.8 02/11/2015 VICKIE EVY A MACHINE STOPPAGE FREQUENCY CHECKER Ot V23.7 02/11/2015 VICKIE EVY A MACHINE STOPPAGE FREQUENCY CHECKER Ot V28.89 02/11/2015 VICKIE EVY A MACHINE STOPPAGE FREQUENCY CHECKER Ot V23.7 02/11/2015 EVY JOHNSTON A MACHINE STOPPAGE FREQUENCY CHECKER Ot V28.89 02/11/2015 FENECH DO, AVA S Ot 654.23 02/11/2015 FENECH DO, AVA S Ot V72.84 02/11/2015 FENECH DO, AVA S Ot V74.8 02/22/2015 Ot V22.1 02/22/2015 Ot V23.7 02/22/2015 Ot V28.89 02/22/2015 Ot 658.03 02/22/2015 VICKIE EVY A MACHINE STOPPAGE FREQUENCY CHECKER Ot V28.81 02/22/2015 FENECH DO, AVA S Ot 654.23 02/22/2015 FENECH DO, AVA S Ot V72.63 02/22/2015 FENECH DO, AVA S Ot V74.8 02/22/2015 VICKIE, EVY A MACHINE STOPPAGE FREQUENCY CHECKER Ot V23.7 02/22/2015 VICKIE EVY A MACHINE STOPPAGE FREQUENCY CHECKER Ot V28.89 02/22/2015 VICKIE EVY A MACHINE STOPPAGE FREQUENCY CHECKER Ot V23.7 02/22/2015 VICKIE EVY A MACHINE STOPPAGE FREQUENCY CHECKER Ot V28.89 02/22/2015 FENECH DO, AVA S Ot 654.23 02/22/2015 FENECH DO, AVA S Ot V72.84 02/22/2015 FENECH DO, AVA S Ot V74.8 06/21/2015 RENZO COOPER Ot N39.0 URINARY TRACT INFECTION, SITE NOT SPECIF 06/21/2015 RENZO COOPER Ot N93.9 ABNORMAL UTERINE AND VAGINAL BLEEDING, U 07/08/2016 Ot V22.1 SUPERVIS OTH NORMAL PREG 07/08/2016 Ot V23.7 INSUFFICIENT CARE 07/08/2016 Ot V28.89 OTHER SPECIFIED SCREENING 07/08/2016 Ot 658.03 OLIGOHYDRAMNIOS-ANTEPAR 07/08/2016 VICKIE EVYAMEENA Abdi APRN Ot V28.81 ENCOUNTER FOR ANATOMIC SURVEY 07/08/2016 JAYA CALDWELL AVA Rodriguez Ot 654.23 PREV DELIVERY, ANTEPARTUM COND 07/08/2016 JAYA CALDWELL AVA Rodriguez Ot V72.63 PRE-PROCEDURAL LABORATORY EXAMINATION 07/08/2016 JAYA CALDWELL AVA Rodriguez Ot V74.8 SCREEN-BACTERIAL DIS NEC 07/08/2016 VICKIE, EVY A MACHINE STOPPAGE FREQUENCY CHECKER Ot V23.7 INSUFFICIENT CARE 07/08/2016 EVY JOHNSTON MACHINE STOPPAGE FREQUENCY CHECKER Ot V28.89 OTHER SPECIFIED SCREENING 07/08/2016 VICKIE, EVY A MACHINE STOPPAGE FREQUENCY CHECKER Ot V23.7 INSUFFICIENT CARE 07/08/2016 VICKIE, EVY [place] MACHINE STOPPAGE FREQUENCY CHECKER Ot V28.89 OTHER SPECIFIED SCREENING 07/08/2016 JAYA CALDWELL AVA Rodriguez Ot 654.23 PREV DELIVERY, ANTEPARTUM COND 07/08/2016 JAYA CALDWELL AVA Rodriguez Ot V72.84 EXAM PRE-OPERATIVE NOS 07/08/2016 JAYA CALDWELL AVA Rodriguez Ot V74.8 SCREEN-BACTERIAL DIS NEC 07/08/2016 NATY ROLDAN, BENY Tomlin Ot E87.6 HYPOKALEMIA 07/08/2016 NATY ROLDAN, BENY Tomlin Ot 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.0 MILD HYPEREMESIS GRAVIDARUM 07/08/2016 NATY ROLDAN, BENY Tomlin Ot O26.892 OTH RELATED CONDITIONS, SECOND 07/08/2016 NATY ROLDAN, BENY Tomlin Ot O99.281 ENDO, NUTRITIONAL AND METAB DISEASES COM 07/08/2016 BENY ALFONSO MD Ot O99.612 DISEASES OF THE DGSTV SYS COMP 07/08/2016 NATY ROLDAN, BENY Tomlin Ot R10.32 LEFT LOWER QUADRANT PAIN 07/08/2016 BENY ALFONSO MD Ot R11.2 NAUSEA WITH VOMITING, UNSPECIFIED 07/08/2016 BENY ALFONSO MD Ot R19.7 DIARRHEA, UNSPECIFIED 07/08/2016 BENY ALFONSO MD Ot Z3A.21 21 WEEKS GESTATION OF 07/09/2016 BENY ALFONSO MD Ot O21.0 MILD HYPEREMESIS GRAVIDARUM 07/09/2016 BENY ALFONSO MD Ot O26.892 [facility] RELATED CONDITIONS, SECOND 07/09/2016 BENY ALFONSO MD Ot O99.612 DISEASES OF THE DGSTV SYS COMP 07/09/2016 BENY ALFONSO MD Ot R10.32 LEFT LOWER QUADRANT PAIN 07/09/2016 BENY ALFONSO MD Ot R11.2 NAUSEA WITH VOMITING, UNSPECIFIED 07/09/2016 BENY ALFONSO MD Ot R19.7 DIARRHEA, UNSPECIFIED 07/09/2016 BENY ALFONSO MD Ot Z3A.21 21 WEEKS GESTATION OF 07/23/2016 ANN-MARIE HASTINGS MD Ot Z34.82 ENCOUNTER FOR SUPRVSN OF NORMAL PREGNANC 08/05/2016 ANN-MARIE HASTINGS MD Ot Z34.82 ENCOUNTER FOR SUPRVSN OF NORMAL PREGNANC 08/25/2016 ANN-MARIE HASTINGS MD Ot Z36 ENCOUNTER FOR SCREENING OF MOT 09/04/2016 ANN-MARIE HASTINGS MD Ot Z36 ENCOUNTER FOR SCREENING OF MOT Procedures Code Description Performed By Performed On 74.1 LOW CERVICAL 08/20/2011 43286 ROUTINE VENIPUNCTURE 02/22/2013 17956 ANTIBODY SCREEN (order) 02/22/2013 28988 SYPHILLIS-[facility] 02/22/2013 31181 HEP B SURFACE ANTIGEN (STATE ) 02/22/2013 61869 URINE TEST (IN- HOUSE) 02/22/2013 69178 URINE DRUG SCREEN (IN-HOUSE ) 02/22/2013 08774 CBC 02/22/2013 63314 TSH 02/22/2013 41109 HIV ANTIBODIES (RML) 02/23/2013 [id number] ANTIBODY SCREEN (RESULT ONLY) 02/23/2013 69725 RUBELLA ANTIBODY, IGG 02/23/2013 50896 CULTURE URINE 02/23/2013 11934 US OB - COMPLETE >14 WEEKS 02/24/2013 02008 GC/CHLAM PROBE (STATE) 05/29/2013 54990 UA OB DIP 05/29/2013 49829 TRICHOMONAS (IN-HOUSE) 05/29/2013 53754 CULTURE UROGENITAL 06/01/2013 93252 UA OB DIP 06/07/2013 72.79 VACUUM EXTRACT DEL NEC 06/29/2013 74.1 LOW CERVICAL 06/29/2013 28110 TEST, URINE (IN- HOUSE) 07/24/2014 92882 ROUTINE VENIPUNCTURE 08/07/2014 12603 OB - FOLLOW UP 08/07/2014 11296 SYPHILLIS-[facility] 08/07/2014 04023 HIV ([facility]) 08/07/2014 86000 ANTIBODY SCREEN (order) 08/07/2014 81593 HEP B SURFACE ANTIGEN (STATE ) 08/07/2014 81862 GC/CHLAM PROBE (STATE) 08/07/2014 Q0091 PAP SMEAR OBTAIN SMEAR 08/07/2014 12899 UA OB DIP 08/07/2014 77543 TRICHOMONAS (IN-HOUSE) 08/07/2014 45750 CBC 08/07/2014 73339 TSH 08/07/2014 [id number] ANTIBODY SCREEN (RESULT ONLY) 08/08/2014 18481 BLOOD TYPE/Rh FACTOR 08/08/2014 61359 RUBELLA ANTIBODY, IGG 08/08/2014 90585 CULTURE URINE 08/08/2014 37396 CULTURE UROGENITAL 08/10/2014 87969 PAP SMEAR 08/13/2014 72521 ROUTINE VENIPUNCTURE 08/21/2014 15512 UA OB DIP 08/21/2014 02678 GLUCOSE SOHAN 1 HOUR 08/21/2014 74.1 LOW CERVICAL 11/22/2014 99.77 APPL/ADMIN OF AN ADHESION BARRIER SUBSTA 11/22/2014 Results Test Result Range Complete blood count (CBC) with automated white blood cell (WBC) differential - 07/08/16 16:00 Blood leukocytes automated count (number/volume) 8.7 10*3/uL 4.3-11.0 Blood erythrocytes automated count (number/volume) 4.00 10*6/uL 4.35-5.85 Venous blood hemoglobin measurement (mass/volume) 11.2 g/dL 11.5-16.0 Blood hematocrit (volume fraction) 33 % 35-52 Automated erythrocyte mean corpuscular volume 83 [foz_us] 80-99 Automated erythrocyte mean corpuscular hemoglobin (mass per erythrocyte) 28 pg 25-34 Automated erythrocyte mean corpuscular hemoglobin concentration measurement ( mass/volume) 34 g/dL 32-36 Automated erythrocyte distribution width ratio 13.6 % 10.0-14.5 Automated blood platelet count (count/volume) 180 10*3/uL 130-400 Automated blood platelet mean volume measurement 10.3 [foz_us] 7.4-10.4 Automated blood neutrophils/100 leukocytes 80 % 42-75 Automated blood lymphocytes/100 leukocytes 14 % 12-44 Blood monocytes/100 leukocytes 4 % 0-12 Automated blood eosinophils/100 leukocytes 1 % 0-10 Automated blood basophils/100 leukocytes 0 % 0-10 Blood neutrophils automated count (number/volume) 6.9 10*3 1.8-7.8 Blood lymphocytes automated count (number/volume) 1.2 10*3 1.0-4.0 Blood monocytes automated count (number/volume) 0.4 10*3 0.0-1.0 Automated eosinophil count 0.1 10*3/uL 0.0-0.3 Automated blood basophil count (count/volume) 0.0 10*3/uL 0.0-0.1 Serum or plasma choriogonadotropin ( test) detection - 07/08/16 16:00 Serum or plasma choriogonadotropin ( test) detection POSITIVE NEGATIVE Comprehensive metabolic panel - 07/08/16 16:00 Serum or plasma sodium measurement (moles/volume) 139 mmol/L 135-145 Serum or plasma potassium measurement (moles/volume) 2.9 mmol/L 3.6-5.0 Serum or plasma chloride measurement (moles/volume) 108 mmol/L 98-107 Carbon dioxide 20 mmol/L 21-32 Serum or plasma anion gap determination (moles/volume) 11 mmol/L 5-14 Serum or plasma urea nitrogen measurement (mass/volume) 8 mg/dL 7-18 Serum or plasma creatinine measurement (mass/volume) 0.70 mg/dL 0.60-1.30 Serum or plasma urea nitrogen/creatinine mass ratio 11 NRG Serum or plasma creatinine measurement with calculation of estimated glomerular filtration rate > NRG Serum or plasma glucose measurement (mass/volume) 110 mg/dL 70-105 Serum or plasma calcium measurement (mass/volume) 8.0 mg/dL 8.5-10.1 Serum or plasma total bilirubin measurement (mass/volume) 0.4 mg/dL 0.1-1.0 Serum or plasma alkaline phosphatase measurement (enzymatic activity/volume) 49 U/L 40-136 Serum or plasma aspartate aminotransferase measurement (enzymatic activity/ volume) 16 U/L 5-34 Serum or plasma alanine aminotransferase measurement (enzymatic activity/volume ) 13 U/L 0-55 Serum or plasma protein measurement (mass/volume) 6.4 g/dL 6.4-8.2 Serum or plasma albumin measurement (mass/volume) 3.4 g/dL 3.2-4.5 Lipase - 07/08/16 16:00 Lipase 8 U/L 8-78 Complete urinalysis with reflex to culture - 07/08/16 16:17 Urine color determination YELLOW NRG Urine clarity determination SLIGHTLY CLOUDY NRG Urine pH measurement by test strip 6 5-9 Specific gravity of urine by test strip 1.025 1.016- 1.022 Urine protein assay by test strip, semi-quantitative 2+ NEGATIVE Urine glucose detection by automated test strip NEGATIVE NEGATIVE Erythrocytes detection in urine sediment by light microscopy NEGATIVE NEGATIVE Urine ketones detection by automated test strip 3+ NEGATIVE Urine nitrite detection by test strip NEGATIVE NEGATIVE Urine total bilirubin detection by test strip NEGATIVE NEGATIVE Urine urobilinogen measurement by automated test strip (mass/volume) 1 mg/dL NORMAL Urine leukocyte esterase detection by dipstick 1+ NEGATIVE Automated urine sediment erythrocyte count by microscopy (number/high power field) NONE NRG Automated urine sediment leukocyte count by microscopy (number/high power field ) [HPF] NRG Bacteria detection in urine sediment by light microscopy TRACE NRG Squamous epithelial cells detection in urine sediment by light microscopy 5-10 NRG Crystals detection in urine sediment by light microscopy NONE NRG Casts detection in urine sediment by light microscopy NONE NRG Mucus detection in urine sediment by light microscopy MODERATE NRG Complete urinalysis with reflex to culture NO NRG Encounters ACCT No. Visit Date/Time Discharge Status Pt. Type Provider Facility Loc./Unit Complaint [id number] 08/21/2014 14:46:00 08/21/2014 23:59:59 CLS Outpatient ANN-MARIE HASTINGS MD [id number] 08/07/2014 11:25:00 08/07/2014 23:59:59 CLS Outpatient EVY JOHNSTON APRN [id number] 07/25/2014 17:10:00 07/25/2014 23:59:59 CLS Outpatient STEPH JOHNSTON APRNAMEENA Abdi [id number] 12/11/2013 15:02:00 12/11/2013 23:59:59 CLS Outpatient STEPH JOHNSTON APRNIDI Trinidad [id number] 06/07/2013 14:05:00 06/07/2013 23:59:59 CLS Outpatient OSMANI RICHARD DO [id number] 05/29/2013 13:38:00 05/29/2013 23:59:59 CLS Outpatient STEPH JOHNSTON APRNAMEENA Abdi [id number] 02/22/2013 08:23:00 02/22/2013 23:59:59 CLS Outpatient STEPH JOHNSTON APRNAMEENA Abdi [id number] 08/20/2016 11:44:00 08/20/2016 23:59:59 CLS Outpatient ANN-MARIE HASTINGS MD [facility] RAD F/U POORLY SEEN STRUCTURES [id number] 07/23/2016 11:41:00 07/23/2016 23:59:59 CLS Outpatient ANN-MARIE HASTINGS MD [facility] RAD Z34.82 [id number] 07/08/2016 15:16:00 07/08/2016 18:35:00 DIS Emergency BENY ALFONSO MD [facility] ER ABD PAIN;VOMITING [id number] 06/20/2015 20:52:00 06/21/2015 00:23:00 DIS Emergency RENZO COOPER [facility] ER ABD PAIN;VAGINAL BLEEDING [id number] 02/11/2015 05:46:00 02/11/2015 07:15:00 DIS Emergency BENY ALFONSO MD [facility] ER RT FOOT PAIN [id number] 11/22/2014 09:00:00 11/24/2014 13:50:00 DIS Inpatient AVA LAKE DO [facility] LDRP PREVIOUS SECTION [id number] 11/15/2014 13:29:00 11/15/2014 23:59:59 CLS Outpatient JOEYECH AVA CALDWELL [facility] PREOP PREVIOUS SECTION [id number] 08/14/2014 13:09:00 08/14/2014 23:59:59 CLS Outpatient EVY JOHNSTON MACHINE [employer] [facility] RAD FOLLOW UP TO COMPLETE SURVEY [id number] 08/02/2014 10:02:00 08/02/2014 23:59:59 CLS Outpatient EVY JOHNSTON A MACHINE [employer]QU[employer] [facility] RAD DATING SURVEY UNKNOWN LMP [id number] 12/08/2013 10:03:00 12/09/2013 12:15:00 DIS Outpatient AVA LAKE DO [facility] SDC ECTOPIC [id number] 06/29/2013 06:02:00 07/01/2013 13:05:00 DIS Inpatient FENAVA MARIE DO [facility] WS PREVIOUS SECTION [id number] 06/21/2013 12:10:00 06/21/2013 23:59:59 CLS Outpatient JOEYECH AVA CALDWELL [facility] PREOP PREVIOUS SECTION [id number] 02/24/2013 08:50:00 02/24/2013 23:59:59 CLS Outpatient EVY JOHNSTON MACHINE [employer] [facility] RAD DATING/UNKNOWN LMP [id number] 08/20/2011 11:22:00 Document Registration [id number] 08/20/2011 08:44:00 Document Registration [id number] 07/31/2011 15:02:00 Document Registration [id number] 07/05/2011 12:15:00 Document Registration [id number] 06/12/2011 10:00:00 Document Registration
[2017-06-01] MEDS ORDERED: KETOROLAC 30 MG/ML VIAL IVP ONE (12:15)
--- NOTE | 2017-06-01 12:17 | ED Abdominal Pain ---
General Stated Complaint: RIGHT SIDE PAIN Source of Information: Patient Exam Limitations: No Limitations History of Present Illness Date Seen by Provider: Jun 01, 2017 Time Seen by Provider: 12:16 Initial Comments To ER with right lateral lower abdominal pain since awakening this morning at 6: 30 AM. Pain began as mild has become much more intense throughout the day. She didn't have a bowel movement to relieve the pain and did have a bowel movement which was normal in consistency but did not change her pain. When she urinated she noted some blood in her urine. She has no history of this. She has had a cough for the past few days with a fever last night. Timing/Duration: 4-6 Hours Severity/Quality: Moderate Location: RLQ Radiation: No Radiation Activities at Onset: None Allergies and Home Medications Allergies Coded Allergies: No Known Drug Allergies (Unverified , 06/21/13) Home Medications Cefdinir 300 Mg Capsule, 300 MG PO BID, #10 Prescribed by: CAMERON JAMES on 06/01/17 1257 Diphenoxylate HCl/Atropine 1 Each Tablet, 1 EACH PO Q4H PRN for DIARRHEA, #8 Prescribed by: BENY REY on 07/08/161823 Doxylamine/Pyridoxine HCl 1 Each Tablet.dr, 2 EACH PO HS PRN for NAUSEA/VOMITING , #30 Prescribed by: BENY REY on 07/08/161823 Review of Systems Constitutional: see HPI EENTM: No Symptoms Reported Respiratory: No Symptoms Reported Cardiovascular: No Symptoms Reported Gastrointestinal: See HPI, Abdominal Pain Genitourinary: No Symptoms Reported Musculoskeletal: no symptoms reported Skin: no symptoms reported Psychiatric/Neurological: No Symptoms Reported Endocrine: No Symptoms Reported Hematologic/Lymphatic: No Symptoms Reported Past Azyvtsv-Ywuycl-Yyxbak Hx Patient Social History 2nd Hand Smoke Exposure: No Recent Foreign Travel: No Contact w/Someone Who Travel: No Recent Hopitalizations: No Immunizations Up To Date Tetanus Booster (TDap): Less than 5yrs Date of Influenza Vaccine: May 29, 2013 Seasonal Allergies Seasonal Allergies: No Reproductive System Hx Reproductive Disorders: No Female Reproductive Disorders: Ovarian Cyst Blood Transfusions Adverse Reaction to a Blood Tr: No Family Medical History Significant Family History: No Pertinent Family Hx Family Medial History: No Family History of: Abdominal aortic aneurysm Cancer Family history: Alzheimer's disease Family history: Breast disease Family history: Cardiovascular disease Family history: Diabetes mellitus Family history: Gastrointestinal disease Family history: Thyroid disorder History of - disorder Myocardial infarction Seizure disorder Stroke Physical Exam Vital Signs VS - Last 72 Hours, by Label 06/01/17 06/01/17 12:06 13:52 Temp 96.7 Pulse 115 94 Resp 18 18 B/P (MAP) 115/73 (87) Pulse Ox 98 Capillary Refill : General Appearance: WD/WN, no apparent distress HEENT: PERRL/EOMI, normal ENT inspection Neck: non-tender, full range of motion Respiratory: no respiratory distress, no accessory muscle use, other (faint expiratory wheeze right lower lobe) Cardiovascular: regular rate, rhythm, no murmur Gastrointestinal: normal bowel sounds, soft, tenderness Extremities: normal range of motion, non-tender Neurologic/Psychiatric: alert, normal mood/affect, oriented x 3 Skin: normal color, warm/dry Progress/Results/Core Measures Results/Orders Lab Results Laboratory Tests Test 06/01/17 12:10 06/01/17 12:14 Range/Units Urine Color YELLOW Urine Clarity CLEAR Urine pH 6 5-9 Urine Specific [place] 1.020 1.016-1.022 Urine Protein 1+ H NEGATIVE Urine Glucose (UA) NEGATIVE NEGATIVE Urine Ketones 1+ H NEGATIVE Urine Nitrite NEGATIVE NEGATIVE Urine Bilirubin NEGATIVE NEGATIVE Urine Urobilinogen NORMAL NORMAL MG/DL Urine Leukocyte Esterase NEGATIVE NEGATIVE Urine RBC (Auto) 2+ H NEGATIVE Urine RBC NONE /HPF Urine WBC 10-25 H /HPF Urine Squamous Epithelial Cells 5-10 /HPF Urine Crystals NONE /LPF Urine Bacteria TRACE /HPF Urine Casts PRESENT /LPF Urine Hyaline Casts 5-10 H /LPF Urine Mucus SMALL H /LPF Urine Culture Indicated YES White Blood Count 6.3 4.3-11.0 10^3/uL Red Blood Count 5.17 4.35-5.85 10^6/uL Hemoglobin 13.7 11.5-16.0 G/DL Hematocrit 41 35-52 % Mean Corpuscular Volume 79 L 80-99 FL Mean Corpuscular Hemoglobin 27 25-34 PG Mean Corpuscular Hemoglobin Concent 34 32-36 G/DL Red Cell Distribution Width 13.3 10.0-14.5 % Platelet Count 213 130-400 10^3/uL Mean Platelet Volume 10.9 H 7.4-10.4 FL Neutrophils (%) (Auto) 62 42-75 % Lymphocytes (%) (Auto) 25 12-44 % Monocytes (%) (Auto) 10 0-12 % Eosinophils (%) (Auto) 2 0-10 % Basophils (%) (Auto) 0 0-10 % Neutrophils # (Auto) 3.9 1.8-7.8 X 10^3 Lymphocytes # (Auto) 1.6 1.0-4.0 X 10^3 Monocytes # (Auto) 0.7 0.0-1.0 X 10^3 Eosinophils # (Auto) 0.1 0.0-0.3 10^3/uL Basophils # (Auto) 0.0 0.0-0.1 10^3/uL Sodium Level 138 135-145 MMOL/L Potassium Level 3.6 3.6-5.0 MMOL/L Chloride Level 103 98-107 MMOL/L Carbon Dioxide Level 22 21-32 MMOL/L Anion Gap 13 5-14 MMOL/L Blood Urea Nitrogen 14 7-18 MG/DL Creatinine 1.27 0.60-1.30 MG/DL Estimat Glomerular Filtration Rate 50 BUN/Creatinine Ratio 11 Glucose Level 104 70-105 MG/DL Calcium Level 9.0 8.5-10.1 MG/DL Total Bilirubin 0.4 0.1-1.0 MG/DL Aspartate Amino Transf (AST/SGOT) 25 5-34 U/L Alanine Aminotransferase (ALT/SGPT) 28 0-55 U/L Alkaline Phosphatase 75 40-136 U/L Total Protein 8.4 H 6.4-8.2 GM/DL Albumin 4.3 3.2-4.5 GM/DL My Orders Orders - CAMERON JAMES APRN Chest Pa/Lat (2 View) (06/01/17 12:15) Ct Abd/Pelvis Wo(Kidney Stone) (06/01/17 12:15) Ua Culture If Indicated (06/01/17 12:15) Urine Bedside (06/01/17 12:15) Saline Lock/Iv-Start (06/01/17 12:15) Cbc With Automated Diff (06/01/17 12:15) Comprehensive Metabolic Panel (06/01/17 12:15) Ketorolac Injection (Toradol Injection) (06/01/17 12:15) Urine Culture (06/01/17 12:10) Ceftriaxone Injection (Rocephin Injectio (06/01/17 13:00) Medications Given in ED Current Medications Medications Dose Ordered Sig/Kayla Route Start Time Stop Time Status Last Admin Dose Admin Ceftriaxone Sodium 1000 mg/ Dextrose/Water 50 ml @ 100 mls/hr ONCE ONCE IV 06/01/17 13:00 06/01/17 13:29 DC 06/01/17 13:09 100 MLS/HR Ketorolac Tromethamine 30 mg ONCE ONCE IVP 06/01/17 12:15 06/01/17 12:17 DC 06/01/17 12:27 30 MG Vital Signs/I&O Vital Sign - Last 12Hours 06/01/17 06/01/17 12:06 13:52 Temp 96.7 Pulse 115 94 Resp 18 18 B/P (MAP) 115/73 (87) Pulse Ox 98 Departure Impression Impression: Primary Impression: Right flank pain Additional Impression: Urinary tract infection Disposition: 01 HOME, SELF-CARE Condition: Stable Departure-Patient Inst. Decision time for Depature: 12:56 Referrals: ANN-MARIE HASTINGS MD (PCP/Family) Primary Care Physician Patient Instructions: NO INSTRUCTIONS GIVEN, Urinary Tract Infection, Adult (DC ) Add. Discharge Instructions: 1. Drink plenty of fluids 2. Antibiotics as directed 3. Return to ER for any concerns Scripts Cefdinir (Cefdinir) 300 Mg Capsule 300 MG PO BID, #10 CAP Prov: CAMERON JAMES APRN 06/01/17 Work/School Note: Work Release Form Date Seen in the Emergency Department: Jun 01, 2017 Return to Work: Jun 03, 2017 CAMERON JAMES APRN Jun 01, 2017 12:17
[2017-06-01 12:23] LABS: BILIRUBIN,URINE NEGATIVE (NEGATIVE); CLARITY,URINE CLEAR; COLOR,URINE YELLOW; GLUCOSE, URINE (UA) NEGATIVE (NEGATIVE); KETONES,URINE 1+ (NEGATIVE); LEUKOCYTE ESTERASE ,URINE NEGATIVE (NEGATIVE); NITRITE,URINE NEGATIVE (NEGATIVE); PH,URINE 6 (5-9); PROTEIN,URINE 1+ (NEGATIVE); UROBILINOGEN,URINE NORMAL (NORMAL)
[2017-06-01 12:23] LABS: BASOPHILS % (AUTO) 0 % (0-10); EOSINOPHILS # (AUTO) 0.1 10^3/uL (0.0-0.3); EOSINOPHILS % (AUTO) 2 % (0-10); HEMATOCRIT 41 % (35-52); HEMOGLOBIN 13.7 G/DL (11.5-16.0); LYMPHOCYTES # (AUTO) 1.6 X 10^3 (1.0-4.0); LYMPHOCYTES % (AUTO) 25 % (12-44); MEAN CORPUSCULAR HEMOGLOBIN 27 PG (25-34); MEAN CORPUSCULAR HGB CONC 34 G/DL (32-36); MEAN CORPUSCULAR VOLUME 79 FL (80-99); MEAN PLATELET VOLUME 10.9 FL (7.4-10.4); MONOCYTES # (AUTO) 0.7 X 10^3 (0.0-1.0); MONOCYTES % (AUTO) 10 % (0-12); NEUTROPHILS # (AUTO) 3.9 X 10^3 (1.8-7.8); NEUTROPHILS % (AUTO) 62 % (42-75); PLATELET COUNT 213 10^3/uL (130-400); RED BLOOD COUNT 5.17 10^6/uL (4.35-5.85); RED CELL DISTRIBUTION WIDTH 13.3 % (10.0-14.5); WHITE BLOOD COUNT 6.3 10^3/uL (4.3-11.0)
[2017-06-01 12:43] LABS: ALBUMIN 4.3 GM/DL (3.2-4.5); BILIRUBIN,TOTAL 0.4 MG/DL (0.1-1.0); CREATININE SERUM 1.27 MG/DL (0.60-1.30); POTASSIUM 3.6 MMOL/L (3.6-5.0); TOTAL PROTEIN 8.4 GM/DL (6.4-8.2)
[2017-06-01 12:45] LABS: BACTERIA,URINE TRACE /HPF
[2017-06-01] MEDS ORDERED: CEFD300C3 PO (12:57)
--- NOTE | 2017-06-01 12:57 | Diagnostic Imaging Report ---
INDICATION: Wheezing and flank pain. TIME OF EXAM: 1:10 p.m. No prior studies are available for comparison. FINDINGS: The heart size is normal. The lungs are clear. No pleural effusion or pneumothorax is identified. The pulmonary vascularity is normal. IMPRESSION: No acute abnormality detected. Dictated by: Dictated on workstation # [id number]
[2017-06-01] MEDS ORDERED: cefTRIAXone INJECTION 1,000 MG in D5W 50 ML IVPB SOLUTION 50 ML IV ONE (13:00)
--- NOTE | 2017-06-01 13:01 | Diagnostic Imaging Report ---
PROCEDURE: CT urinary tract, rule out kidney stone. TECHNIQUE: Multiple contiguous axial images were obtained through the abdomen and pelvis without the use of intravenous contrast. INDICATION: Right mid abdominal pain since this morning. COMPARISON: None. FINDINGS: The lung bases are clear. The heart is normal in size. There is trace pericardial fluid without significant effusion seen. No focal hepatic lesions are seen. The spleen, pancreas, and adrenal glands are unremarkable. No renal calculi are seen. There is no hydronephrosis. The urinary bladder wall is mildly thick, which may be due to decompression. There is mild prominence of the right posterolateral wall, which may represent a small diverticulum. The bowel loops are nondistended. There is no evidence of obstruction. The appendix is normal (image 42 series 4). No significant free fluid or free air is seen. No osseous abnormalities identified. IMPRESSION: 1. No renal calculi or hydronephrosis. 2. Normal appendix. No evidence of bowel obstruction. Dictated by: Dictated on workstation # [id number]
[2017-06-01 13:52] VITALS: BP 126/88
== END 2017-06-01 13:52 | disposition home or self-care (01) ==
LOC: EDUNIT# 11:52 → ER 11:54
DX: N39.0 Urinary tract infection, site not specified (principal); Z87.42 Personal history of other diseases of the female genital tract
CPT/HCPCS: 36415; 71046; 74176; 80053; 81000; 84703; 85025; 87088; 96374; 96375

== ENCOUNTER 2018-04-23 17:02 | Emergency (ER) | payer BC ==
[~2018-04-23] VITALS: Ht 152.4 cm; Wt 81.6 kg
[~2018-04-23 17:02] MED LIST changes: +CEFD300C3 PO
--- OUTSIDE RECORDS SUMMARY | 2018-04-23 17:09 | XMS REPORT ---
Author Author DARLINGANN-MARIE [facility] Address [address] [place] [address] Care Team Providers Care Examination Scorer Name Role Phone CARROLL HASTINGSY Unavailable PROBLEMS Type Condition ICD9-CM Code QAM60-AP Code Onset Dates Condition Status SNOMED Code Problem Urinary tract infection affecting care of mother in second trimester, antepartum O23.42 Active 194895448 Problem History of delivery affecting O34.219 Active 306010180 Problem care, subsequent in second trimester Z34.82 Active 036651089 Problem Other specified diseases and conditions complicating , childbirth and the puerperium O99.89 Active 471007134 ALLERGIES No Information ENCOUNTERS Encounter Location Date Diagnosis [facility] [id number] [place] [address] Oct, [place] [address] [address] Oct, [place] [id number] [place] [address] September, 32 weeks gestation of Z3A.32 [place] [id number] [place] [address]- [address] Aug, Dental examination Z01.20 [place] [id number] [place] [address] 520[address]- [address] Aug, care in third trimester Z34.93 ; 29 weeks gestation of Z3A.29 and UTI in , second trimester O23.42 [place] [id number] [place] [address]- [address] Aug, care, subsequent in second trimester Z34.82 ; Urinary tract infection affecting care of mother in second trimester, antepartum O23.42 ; History of delivery affecting O34.219 ; 26 weeks gestation of Z3A.26 and Encounter for anatomic survey Z36 [facility] [id number] [place] [id number] Aug, 2016 Dental examination Z01.20 [place] [id number] [place] [address] 00588- [address] 17 Jul, 2016 [place] [id number] [place] [address]- [address] Jul, [place] [id number] [place] [address] 32[address]- [address]64 10 Jul, 2016 care, subsequent in second trimester Z34.82 ; 22 weeks gestation of Z3A.22 ; UTI (urinary tract infection) during , second trimester O23.42 and History of delivery affecting O34.219 [place] [id number] [place] [address] 17009- 8401 15 Jun, 2016 [place] [id number] [place] [address] 72869- 7[address] 06 Jun, 2016 Encounter for test, result unknown Z32.[address] [place] [id number] [place] [address]- [address] May, Irregular bleeding N92.6 ; Encounter for Depo-Provera contraception Z30.42 ; Surveillance of contraceptive injection Z30.42 ; Routine screening for STI (sexually transmitted infection) Z11.3 and Screening for malignant neoplasm of cervix Z12.4 [place] [id number] [place] [address]97- 1012 Apr, [place] [id number] [place] [address] 60485- 2681 Feb, Ankle pain, right M25.571 [place] [id number] [place] [address] 49532- 9430 Feb, Sprain of unspecified ligament of right ankle, subsequent encounter S93.401D [facility] [id number] [address] Dec, Routine follow-up V24.2 and Encounter for Depo- Provera contraception V25.49 [facility] [address] [address] September, Supervision of other normal V22.1 and Previous delivery, unspecified as to episode of care or not applicable 654.20 [facility] [address] [facility] [id number] [address] 14 Aug, 2014 [facility] [address] [address] Aug, [facility] [address] [address] Jul, [facility] [address] [address] Jul, [facility] [address] [address] Jul, [facility] [address] [address] Jul, [facility] [address] [address] Dec, [facility] [address] [address] Dec, [facility] [address] [address] Jun, [facility] [address] [address] Jun, [facility] [address] [address] May, [facility] [id number] [address] May, [facility] [place] [facility] [address] [id number] [place] [address] May, [facility] [address] [id number] [place] [address] May, [facility] [address] [id number] [place] [address] 4224 May, [facility] [address] [id number] [place] [address] 8735 May, [facility] [address] [id number] [place] [address]- 4936 May, [facility] [address] [id number] [place] [address]- 6329 May, [facility] [address] [id number] [place] [address] 3469 May, [facility] [address] [id number] [place] [address] 1884 Feb, [facility] [address] [id number] [place] [address]- 8[address] Feb, [facility] [address] [id number] [place] [address]- 9143 Feb, [facility] [address] [id number] [place] [address]- 1735 Feb, [facility] [address] [id number] [address] 16 Feb, 2013 [facility] [place] [facility] [address] [id number] [place] [address]- [address] 27 Aug, 2011 [facility] [place] [facility] [address] [id number] [place] [address]- 5246 13 Aug, 2011 [facility] [place] [facility] [address] [id number] [place] [address]- 9066 12 Aug, 2011 [facility] [place] [facility] [address] [id number] [place] [address]- 8134 Aug, [facility] [address] [id number] [place] [address]- 7242 Aug, [facility] [place] [facility] [address] [id number] [place] [address]- 3314 09 Aug, 2011 [facility] [place] [facility] [address] [id number] [place] [address]- 6709 30 Jul, 2011 [facility] [place] [facility] [address] [id number] [place] [address]- 55[address] 28 Jul, 2011 [facility] [place] [facility] [address] [id number] [place] [address]- 3263 Jul, [facility] [place] [facility] [address] [id number] [place] [address]- 8195 Jul, [facility] [address] [id number] [place] [address]- 2572 Jul, [facility] [place] [facility] [address] [id number] [place] [address]- 8484 Jul, [facility] [place] [facility] [address] [id number] [place] [address]- 1555 29 Jun, 2011 [facility] [place] [facility] [address] [id number] [place] [address]- 0971 Jun, [facility] [place] [facility] [address] [id number] [place] [address]- 3051 Jun, [facility] [place] [facility] [address] [id number] [place] [address]- 9989 May, [facility] [place] [facility] [address] [id number] [place] [address]- 0147 May, [facility] [place] [facility] [address] [id number] [place] [address]- 8205 18 May, 2011 [facility] [place] [facility] [address] [id number] [place] [address]- [address] 13 May, 2011 [facility] [place] [facility] [address] [facility] [id number] [place] [address]- [address] May, [facility] [address] [facility] [id number] [place] [address] May, [facility] [address] [facility] [id number] [place] [address]- 280[address] May, IMMUNIZATIONS No Known Immunizations SOCIAL HISTORY Never Assessed REASON FOR VISIT [facility] Document PLAN OF CARE VITAL SIGNS MEDICATIONS Unknown Medications RESULTS No Results PROCEDURES No Known procedures INSTRUCTIONS MEDICATIONS ADMINISTERED No Known Medications MEDICAL (GENERAL) HISTORY Type Description Date Surgical History C section X 4 Surgical History salpingo-oophorectomy 2015 Hospitalization History childbirth only
--- OUTSIDE RECORDS SUMMARY | 2018-04-23 17:10 | XMS REPORT | Continuity of Care Document ---
Author Author [facility] Ctr of [facility] C[facility] of [facility] Address Unknown Phone Unavailable Allergies Active Description Code Type Severity Reaction Onset Reported/Identified Relationship to Patient Clinical Status Yes No Known Drug Allergies [id number] Drug Allergy Unknown N/A 06/21/2013 Medications There is no data. Problems Date Dx Coded Attending Type Code Diagnosis Diagnosed By 09/04/2010 VICKIE GOLDBERG EVY A V72.41 Test Negative Result 09/04/2010 VICKIEGRISELDA GOLDBERG, EVY A V72.41 Test Negative Result 09/04/2010 ROSS RICHARD DOA K V72.41 Test Negative Result 09/04/2010 VICKIEGRISELDA GOLDBERG EVY A V72.41 Test Negative Result 09/04/2010 VICKIERGISELDA GOLDBERG, VEY A V72.41 Test Negative Result 09/04/2010 VICKIEGRISELDA GOLDBERG, EVY A V72.41 Test Negative Result 09/04/2010 ANN-MARIE HASTINGS MD V72.41 Test Negative Result 05/19/2011 VICKIE MATH INTERVENTIONIST, EVY A V04.81 FLU DX (3 YRS [...] DX (3 YRS AND ABOVE, IM) 05/19/2011 ANN-MARIE HASTINGS MD V22.1 , NORMAL OTHER 05/19/2011 [...] ANN-MARIE HASTINGS MD V77.1 Diabetes Screening 06/24/2011 ANN-MARIE HASTINGS MD V78.0 Anemia Screening 07/07/2011 Ot 276.8 HYPOPOTASSEMIA 07/07/2011 Ot 285.9 ANEMIA NOS 07/07/2011 Ot 486 PNEUMONIA, ORGANISM NOS 07/07/2011 Ot 648.23 ANEMIA- ANTEPARTUM 07/07/2011 Ot 648.93 OTH CURR COND-ANTEPARTUM 07/08/2011 VICKIE MATH INTERVENTIONIST, EVY A V23.7 , HIGH RISK W/ INSUFFICIENT CARE 07/08/2011 VICKIE APRN, EVY A V23.7 , HIGH RISK W/ INSUFFICIENT CARE 07/08/2011 OSMANI RICHARD DO V23.7 , HIGH RISK W/ INSUFFICIENT CARE 07/08/2011 VICKIE APRN, EVY A V23.7 , HIGH RISK W/ INSUFFICIENT CARE 07/08/2011 VICIKE APRN, EVY A V23.7 , HIGH RISK [...] APRN A V28.6 GBS SCREENING 05/29/2013 VICKIE MATH INTERVENTIONIST, EVY A V74.5 STD SCREEN 05/29/2013 ANN-MARIE [...] 07/01/2013 JAYA CALDWELL AVA Rodriguez Ot V06.4 [id number] 07/01/2013 JAYA CALDWELL AVA Rodriguez Ot V15.81 [...] DO Ot V72.63 08/02/2014 JAYA CALDWELL AVA Jennifer Ot V74.8 08/07/2014 EVY JOHNSTON APRN V76.2 CERVICAL CANCER SCREENING (PAP SMEAR) 08/07/2014 ANN-MARIE HASTINGS MD V76.2 CERVICAL CANCER SCREENING (PAP SMEAR) 08/22/2014 Ot V22.1 08/22/2014 Ot V23.7 08/22/2014 Ot V28.89 08/22/2014 Ot 658.03 08/22/2014 VICKIE, EVY A MATH INTERVENTIONIST Ot V28.81 08/22/2014 FENECH DO, AVA S Ot 654.23 08/22/2014 FENECH DO, AVA S Ot V72.63 08/22/2014 FENECH DO, AVA S Ot V74.8 08/22/2014 VICKIE, EVY A MATH INTERVENTIONIST Ot V23.7 08/22/2014 VICKIE, EVY A MATH INTERVENTIONIST Ot V28.89 08/22/2014 VICKIE, EVY A MATH INTERVENTIONIST Ot V23.7 08/22/2014 VICKIE, EVY A MATH INTERVENTIONIST Ot V28.89 09/19/2014 VICKIE, EVY A MATH INTERVENTIONIST Ot V23.7 09/19/2014 VICKIE, EVY A MATH INTERVENTIONIST Ot V28.89 09/19/2014 VICKIE, EVY A MATH INTERVENTIONIST Ot V23.7 09/19/2014 VICKIE, EVY A MATH INTERVENTIONIST Ot V28.89 09/28/2014 VICKIE, EVY A MATH INTERVENTIONIST Ot V23.7 09/28/2014 VICKIE, EVY A MATH INTERVENTIONIST Ot V28.89 09/28/2014 VICKIE, EVY A MATH INTERVENTIONIST Ot V23.7 09/28/2014 VICKIE, EVY A MATH INTERVENTIONIST Ot V28.89 11/06/2014 Ot V22.1 11/06/2014 Ot V23.7 11/06/2014 Ot V28.89 11/06/2014 Ot 658.03 11/06/2014 VICKIE, EVY A MATH INTERVENTIONIST Ot V28.81 11/06/2014 [facility] 654.23 11/06/2014 FENECH DO, AVA S Ot V72.63 11/06/2014 FENECH DO, AVA S Ot V74.8 11/06/2014 VICKIE, EVY A MATH INTERVENTIONIST Ot V23.7 11/06/2014 VICKIE, EVY A MATH INTERVENTIONIST Ot V28.89 11/06/2014 EVY JOHNSTON MATH INTERVENTIONIST Ot V23.7 11/06/2014 VICKIEEVY MATH INTERVENTIONIST Ot V28.89 11/15/2014 Ot V22.1 11/15/2014 Ot V23.7 11/15/2014 Ot V28.89 11/15/2014 Ot 658.03 11/15/2014 VICKIESTEPHEVY [place] MATH INTERVENTIONIST Ot V28.81 11/15/2014 AVA LAKE DO Ot 654.23 11/15/2014 [facility] CALD[facility]LL Ot V72.63 11/15/2014 [facility] AVA CALDWELL Ot V74.8 11/15/2014 VICKIE EVY [place] MATH INTERVENTIONIST Ot V23.7 11/15/2014 VICKIEEVY MATH INTERVENTIONIST Ot V28.89 11/15/2014 VICKIEEVY MATH INTERVENTIONIST Ot V23.7 11/15/2014 VICKIEEVY ASHLYN Ot V28.89 11/24/2014 AVA LAKE DO Ot 278.01 MORBID OBESITY 11/24/2014 AVA LAKE DO Ot 649.11 OBESITY COMP PREG/CHILDBIRTH/PUERPERIUM, 11/24/2014 AVA LAKE DO Ot 654.21 PREV DELIVRY W/ OR W/O MENT ANT 11/24/2014 AVA LAKE DO Ot V06.1 JCTTALAMIP-IRIZOGR-[id number], COMBINED [ 11/24/2014 AVA LAKE DO Ot V23.7 INSUFFICIENT CARE 11/24/2014 AVA LAKE DO Ot V27.0 DELIVER-SINGLE LIVEBORN 11/24/2014 AVA LAKE DO Ot V85.41 BODY MASS INDEX 40.0-44.9, ADULT 11/28/2014 Ot V22.1 11/28/2014 Ot V23.7 11/28/2014 Ot V28.89 11/28/2014 Ot 658.03 11/28/2014 VICKIE EVY Abdi MATH INTERVENTIONIST Ot V28.81 11/28/2014 AVA LAKE DO Ot 654.23 11/28/2014 [place] DO Ot V72.63 11/28/2014 [place] LA[place] DO Ot V74.8 11/28/2014 EVY JOHNSTON MATH INTERVENTIONIST Ot V23.7 11/28/2014 VICKIEEVY VILLALOBOS MATH INTERVENTIONIST Ot V28.89 11/28/2014 EVY JOHNSTON MATH INTERVENTIONIST Ot V23.7 11/28/2014 VICKIEEVY VILLALOBOS MATH INTERVENTIONIST Ot V28.89 11/28/2014 FENECH DO, AVA S [...] 02/11/2015 Ot 658.03 02/11/2015 VICKIE EVY [place] MATH INTERVENTIONIST Ot V28.81 02/11/2015 FENECH DO, AVA S Ot 654.23 02/11/2015 FENECH DO, AVA S Ot V72.63 02/11/2015 FENECH DO, AVA S Ot V74.8 02/11/2015 VICKIE EVY A MATH INTERVENTIONIST Ot V23.7 02/11/2015 VICKIE EVY A MATH INTERVENTIONIST Ot V28.89 02/11/2015 VICKIE EVY A MATH INTERVENTIONIST Ot V23.7 02/11/2015 EVY JOHNSTON A MATH INTERVENTIONIST Ot V28.89 02/11/2015 FENECH DO, AVA S Ot 654.23 02/11/2015 FENECH DO, AVA S Ot V72.84 02/11/2015 FENECH DO, AVA S Ot V74.8 02/22/2015 Ot V22.1 02/22/2015 Ot V23.7 02/22/2015 Ot V28.89 02/22/2015 Ot 658.03 02/22/2015 VICKIE EVY A MATH INTERVENTIONIST Ot V28.81 02/22/2015 FENECH DO, AVA S Ot 654.23 02/22/2015 FENECH DO, AVA S Ot V72.63 02/22/2015 FENECH DO, AVA S Ot V74.8 02/22/2015 VICKIE, EVY A MATH INTERVENTIONIST Ot V23.7 02/22/2015 VICKIE EVY A MATH INTERVENTIONIST Ot V28.89 02/22/2015 VICKIE EVY A MATH INTERVENTIONIST Ot V23.7 02/22/2015 VICKIE EVY A MATH INTERVENTIONIST Ot V28.89 02/22/2015 FENECH DO, AVA S [...] SCREEN-BACTERIAL DIS NEC 07/08/2016 VICKIE, EVY A MATH INTERVENTIONIST Ot V23.7 INSUFFICIENT CARE 07/08/2016 EVY JOHNSTON MATH INTERVENTIONIST Ot V28.89 OTHER SPECIFIED SCREENING 07/08/2016 VICKIE, EVY A MATH INTERVENTIONIST Ot V23.7 INSUFFICIENT CARE 07/08/2016 VICKIE, EVY [place] MATH INTERVENTIONIST Ot V28.89 OTHER SPECIFIED SCREENING 07/08/2016 JAYA [...] Ot R10.32 LEFT LOWER QUADRANT PAIN 07/08/2016 EBNY ALFONSO MD Ot R11.2 NAUSEA WITH VOMITING, UNSPECIFIED 07/08/2016 BENY ALFONSO MD Ot R19.7 DIARRHEA, UNSPECIFIED 07/08/2016 BENY ALFONSO MD Ot Z3A.21 21 WEEKS GESTATION OF 07/09/2016 BENY ALFONSO MD Ot 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.0 MILD HYPEREMESIS GRAVIDARUM 07/09/2016 BENY ALFONSO MD Ot O26.892 OTH RELATED CONDITIONS, SECOND 07/09/2016 BENY ALFONSO MD Ot O99.612 [facility] 07/09[facility]2016 BENY ALFONSO MD Ot [...] Ot Z36 ENCOUNTER FOR SCREENING OF MOT 06/01/2017 CAMERON JAMES APRN Ot N39.0 URINARY TRACT INFECTION, SITE NOT SPECIF 06/01/2017 CAMERON JAMES APRN Ot R10.31 RIGHT LOWER QUADRANT PAIN 06/01/2017 CAMERON JAMES APRN Ot Z87.42 PERSONAL HISTORY OF OTH DISEASES OF THE 06/01/2017 ANN-MARIE HASTINGS MD Ot Z34.82 ENCOUNTER FOR SUPRVSN OF NORMAL PREGNANC 06/01/2017 ANN-MARIE HASTINGS MD Ot Z36 ENCOUNTER FOR SCREENING OF MOT 06/03/2017 CAMERON JAMES APRN Ot N39.0 URINARY TRACT INFECTION, SITE NOT SPECIF 06/03/2017 CAMERON JAMES MATH INTERVENTIONIST Ot R10.31 RIGHT LOWER QUADRANT PAIN 06/03/2017 CAMERON JAMES MATH INTERVENTIONIST Ot Z87.42 PERSONAL HISTORY OF OTH DISEASES OF THE Procedures Code Description Performed By Performed On 74.1 LOW CERVICAL 08/20/2011 73911 ROUTINE VENIPUNCTURE 02/22/2013 13188 ANTIBODY SCREEN (order) 02/22/2013 05058 SYPHILLIS-STATE LAB 02/22/2013 35119 HEP B SURFACE ANTIGEN (STATE ) 02/22/2013 65067 URINE TEST (IN- HOUSE) 02/22/2013 45953 URINE DRUG SCREEN (IN-HOUSE ) 02/22/2013 35445 CBC 02/22/2013 26587 TSH 02/22/2013 52551 HIV ANTIBODIES (RML) 02/23/2013 [id number] ANTIBODY SCREEN (RESULT ONLY) 02/23/2013 92876 RUBELLA ANTIBODY, IGG 02/23/2013 66425 CULTURE URINE 02/23/2013 59345 US OB - COMPLETE >14 WEEKS 02/24/2013 30880 GC/CHLAM PROBE (STATE) 05/29/2013 81616 UA OB DIP 05/29/2013 33805 TRICHOMONAS (IN-HOUSE) 05/29/2013 21558 CULTURE UROGENITAL 06/01/2013 93498 UA OB DIP 06/07/2013 72.79 VACUUM EXTRACT DEL NEC 06/29/2013 74.1 LOW CERVICAL 06/29/2013 41057 TEST, URINE (IN- HOUSE) 07/24/2014 65293 ROUTINE VENIPUNCTURE 08/07/2014 00985 US OB - FOLLOW UP 08/07/2014 12053 SYPHILLIS-STATE [facility] 08/07/2014 63093 HIV (STATE LAB) 08/07/2014 22383 ANTIBODY SCREEN (order) 08/07/2014 95744 HEP B SURFACE ANTIGEN (STATE ) 08/07/2014 80430 GC/CHLAM PROBE (STATE) 08/07/2014 Q0091 PAP SMEAR OBTAIN SMEAR 08/07/2014 54577 UA OB DIP 08/07/2014 37985 TRICHOMONAS (IN-HOUSE) 08/07/2014 83670 CBC 08/07/2014 47577 TSH 08/07/2014 4542299 ANTIBODY SCREEN (RESULT ONLY) 08/08/2014 68367 BLOOD TYPE/Rh FACTOR 08/08/2014 64817 RUBELLA ANTIBODY, IGG 08/08/2014 80740 CULTURE URINE 08/08/2014 06428 CULTURE UROGENITAL 08/10/2014 66733 PAP SMEAR 08/13/2014 18441 ROUTINE VENIPUNCTURE 08/21/2014 16368 UA OB DIP 08/21/2014 63270 GLUCOSE SOHAN 1 HOUR 08/21/2014 74.1 LOW [...] urinalysis with reflex to culture NO NRG Complete urinalysis with reflex to culture - 06/01/17 12:10 Urine color determination YELLOW NRG Urine clarity determination CLEAR NRG Urine pH measurement by test strip 6 5-9 Specific gravity of urine by test strip 1.020 1.016- 1.022 Urine protein assay by test strip, semi-quantitative 1+ NEGATIVE Urine glucose detection by automated test strip NEGATIVE NEGATIVE Erythrocytes detection in urine sediment by light microscopy 2+ NEGATIVE Urine ketones detection by automated test strip 1+ NEGATIVE Urine nitrite detection by test strip NEGATIVE NEGATIVE Urine total bilirubin detection by test strip NEGATIVE NEGATIVE Urine urobilinogen measurement by automated test strip (mass/volume) NORMAL NORMAL Urine leukocyte esterase detection by dipstick NEGATIVE NEGATIVE Automated urine sediment erythrocyte count by [...] detection in urine sediment by light microscopy PRESENT NRG Mucus detection in urine sediment by light microscopy SMALL NRG Complete urinalysis with reflex to culture YES NRG Hyaline casts detection in urine sediment by light microscopy 5-10 NRG Bacterial urine culture - 06/01/17 12:10 URINE CULTURE RESULTS <10,000/ML NRG Complete blood count (CBC) with automated white blood cell (WBC) differential - 06/01/17 12:14 Blood leukocytes automated count (number/volume) 6.3 10*3/uL 4.3-11.0 Blood erythrocytes automated count (number/volume) 5.17 10*6/uL 4.35-5.85 Venous blood hemoglobin measurement (mass/volume) 13.7 g/dL 11.5-16.0 Blood hematocrit (volume fraction) 41 % 35-52 Automated erythrocyte mean corpuscular volume 79 [foz_us] 80-99 Automated erythrocyte mean corpuscular hemoglobin (mass per erythrocyte) 27 pg 25-34 Automated erythrocyte mean corpuscular hemoglobin concentration measurement ( mass/volume) 34 g/dL 32-36 Automated erythrocyte distribution width ratio 13.3 % 10.0-14.5 Automated blood platelet count (count/volume) 213 10*3/uL 130-400 Automated blood platelet mean volume measurement 10.9 [foz_us] 7.4-10.4 Automated blood neutrophils/100 leukocytes 62 % 42-75 Automated blood lymphocytes/100 leukocytes 25 % 12-44 Blood monocytes/100 leukocytes 10 % 0-12 Automated blood eosinophils/100 leukocytes 2 % 0-10 Automated blood basophils/100 leukocytes 0 % 0-10 Blood neutrophils automated count (number/volume) 3.9 10*3 1.8-7.8 Blood lymphocytes automated count (number/volume) 1.6 10*3 1.0-4.0 Blood monocytes automated count (number/volume) 0.7 10*3 0.0-1.0 Automated eosinophil count 0.1 10*3/uL 0.0-0.3 Automated blood basophil count (count/volume) 0.0 10*3/uL 0.0-0.1 Comprehensive metabolic panel - 06/01/17 12:14 Serum or plasma sodium measurement (moles/volume) 138 mmol/L 135-145 Serum or plasma potassium measurement (moles/volume) 3.6 mmol/L 3.6-5.0 Serum or plasma chloride measurement (moles/volume) 103 mmol/L 98-107 Carbon dioxide 22 mmol/L 21-32 Serum or plasma anion gap determination (moles/volume) 13 mmol/L 5-14 Serum or plasma urea nitrogen measurement (mass/volume) 14 mg/dL 7-18 Serum or plasma creatinine measurement (mass/volume) 1.27 mg/dL 0.60-1.30 Serum or plasma urea nitrogen/creatinine mass ratio 11 NRG Serum or plasma creatinine measurement with calculation of estimated glomerular filtration rate 50 NRG Serum or plasma glucose measurement (mass/volume) 104 mg/dL 70-105 Serum or plasma calcium measurement (mass/volume) 9.0 mg/dL 8.5-10.1 Serum or plasma total bilirubin measurement (mass/volume) 0.4 mg/dL 0.1-1.0 Serum or plasma alkaline phosphatase measurement (enzymatic activity/volume) 75 U/L 40-136 Serum or plasma aspartate aminotransferase measurement (enzymatic activity/ volume) 25 U/L 5-34 Serum or plasma alanine aminotransferase measurement (enzymatic activity/volume ) 28 U/L 0-55 Serum or plasma protein measurement (mass/volume) 8.4 g/dL 6.4-8.2 Serum or plasma albumin measurement (mass/volume) 4.3 g/dL 3.2-4.5 Encounters ACCT No. Visit Date/Time Discharge Status Pt. Type Provider Facility Loc./Unit Complaint [id number] 08/21/2014 14:46:00 08/21/2014 23:59:59 CLS Outpatient ANN-MARIE HASTINGS MD [id number] 08/07/2014 11:25:00 08/07/2014 23:59:59 CLS Outpatient EVY JOHNSTON APRN [id number] 07/25/2014 17:10:00 07/25/2014 23:59:59 CLS Outpatient EVY JOHNSTON APRN [id number] 12/11/2013 15:02:00 12/11/2013 23:59:59 CLS Outpatient EVY JOHNSTON APRN [id number] 06/07/2013 14:05:00 06/07/2013 23:59:59 CLS Outpatient OSMANI RICHARD DO [id number] 05/29/2013 13:38:00 05/29/2013 23:59:59 [facility] Outpatient EVY JOHNSTON APRN [id number] 02/22/2013 08:23:00 02/22/2013 23:59:59 CLS Outpatient EVY JOHNSTON APRN [id number] 06/01/2017 11:54:00 06/01/2017 13:52:00 DIS Emergency CAMERON JAMES APRN [facility] ER RIGHT SIDE PAIN [id number] 08/20/2016 11:44:00 08/20/2016 23:59:59 CLS Outpatient ANN-MARIE HASTINGS MD [facility] RAD F/U POORLY SEEN STRUCTURES [id number] 07/23/2016 11:41:00 07/23/2016 23:59:59 CLS Outpatient ANN-MARIE HASTINGS MD [facility] RAD Z34.82 [id number] 07/08/2016 15:16:00 07/08/2016 18:35:00 DIS Emergency NATY ROLDAN, BENY Tomlin [facility] ER ABD PAIN;VOMITING [id number] 06/20/2015 20:52:00 06/21/2015 00:23:00 DIS Emergency RENZO COOPER [facility] ER ABD PAIN;VAGINAL BLEEDING [id number] 02/11/2015 05:46:00 02/11/2015 07:15:00 DIS Emergency BENY ALFONSO MD [facility] ER RT FOOT PAIN [id number] 11/22/2014 09:00:00 11/24/2014 13:50:00 DIS Inpatient AVA LAKE DO [facility] LDRP PREVIOUS SECTION [id number] 11/15/2014 13:29:00 11/15/2014 23:59:59 CLS Outpatient AVA LAKE DO S [facility] PREOP PREVIOUS SECTION [id number] 08/14/2014 13:09:00 08/14/2014 23:59:59 CLS Outpatient EVY JOHNSTON APRN [facility] RAD FOLLOW UP TO COMPLETE SURVEY [id number] 08/02/2014 10:02:00 08/02/2014 23:59:59 CLS Outpatient EVY JOHNSTON MATH INTERVENTIONIST [facility] RAD DATING SURVEY UNKNOWN LMP [id number] 12/08/2013 10:03:00 12/09/2013 12:15:00 DIS Outpatient AVA LAKE DO [facility] SDC ECTOPIC [id number] 06/29/2013 06:02:00 07/01/2013 13:05:00 DIS Inpatient AVA LAKE DO [facility] WS PREVIOUS SECTION [id number] 06/21/2013 12:10:00 06/21/2013 23:59:59 CLS Outpatient AVA LAKE DO [facility] PREOP PREVIOUS SECTION [id number] 02/24/2013 08:50:00 02/24/2013 23:59:59 CLS Outpatient EVY JOHNSTON APRN [facility] RAD DATING/UNKNOWN LMP [id number] 04/23/2018 17:04:00 ACT Emergency NATY ROLDAN, BENY Tomlin [facility] ER DIZZY,SHARP PAIN IN ABD [id number] 08/20/2011 11:22:00 Document Registration [id number] 08/20/2011 08:44:00 Document Registration [id number] 07/31/2011 15:02:00 Document Registration [id number] 07/05/2011 12:15:00 Document Registration [id number] 06/12/2011 10:00:00 Document Registration [email or web address] 02/11/2015 05:47:11 ACT Document Registration
--- NOTE | 2018-04-23 17:38 | ED General ---
General Chief Complaint: General Problems/Pain Stated Complaint: DIZZY,SHARP PAIN IN ABD Nursing Triage Note: ARRIVED VIA AMB TO ROOM 05. COMPLAINS OF A HEADACHE AND DIZZINESS X3 WEEKS AND SOME UPPER RIGHT ABD PAIN TODAY. STATES SHE IS 3 WEEKS LATE ON HER PERIOD AND HAS NOT TAKEN A PREG TEST. Nursing Sepsis Screen: No Definite Risk Source of Information: Patient Exam Limitations: No Limitations History of Present Illness Date Seen by Provider: Apr 23, 2018 Time Seen by Provider: 17:36 Initial Comments To ER with reports of headache and "lightheadedness" for 3 weeks. She developed some periumbilical sharp pain today after vomiting. She denies any diarrhea. She is 3 weeks late on her menstrual cycle. She has also had a slight productive cough. No fevers chills sore throat rhinorrhea or earaches. Timing/Duration: Intermittent Severity: Moderate Associated Systoms: Cough, Nausea/Vomiting Allergies and Home Medications Allergies Coded Allergies: No Known Drug Allergies (Unverified , 06/21/13) Patient Home Medication List Home Medication List Reviewed: Yes Review of Systems Review of Systems Constitutional: see HPI; No chills, No fever Respiratory: see HPI Cardiovascular: no symptoms reported Genitourinary: no symptoms reported Musculoskeletal: no symptoms reported Skin: no symptoms reported Psychiatric/Neurological: See HPI, Other Hematologic/Lymphatic: No Symptoms Reported Immunological/Allergic: no symptoms reported Past Bczxnry-Wnolov-Hejucc Hx Patient Social History Alcohol Use: Denies Use Recreational Drug Use: No Smoking Status: Never a Smoker 2nd Hand Smoke Exposure: No Recent Foreign Travel: No Contact w/Someone Who Travel: No Recent Infectious Disease Expo: No Recent Hopitalizations: No Immunizations Up To Date Tetanus Booster (TDap): Less than 5yrs Date of Influenza Vaccine: May 29, 2013 Seasonal Allergies Seasonal Allergies: No Past Medical History Surgeries: Yes ( X3) Respiratory: No Cardiac: No Neurological: No Reproductive Disorders: No Female Reproductive Disorders: Ovarian Cyst Gastrointestinal: No Musculoskeletal: No Endocrine: No Cancer: No Psychosocial: No Integumentary: No Blood Disorders: No Adverse Reaction/Blood Tranf: No Family Medical History No Family History of: Abdominal aortic aneurysm Cancer Family history: Alzheimer's disease Family history: Breast disease Family history: Cardiovascular disease Family history: Diabetes mellitus Family history: Gastrointestinal disease Family history: Thyroid disorder History of - disorder Myocardial infarction Seizure disorder Stroke No Pertinent Family Hx Physical Exam Vital Signs Vital Signs - First Documented 04/23/18 17:10 Temp 98.0 Pulse 73 Resp 16 B/P (MAP) 121/58 (79) Pulse Ox 100 O2 Delivery Room Air Capillary Refill : Less Than 3 Seconds Height, Weight, BMI Height: 5'0" Weight: 180lbs. oz. 81.787454ua; 44.91 BMI Method:Stated General Appearance: No Apparent Distress, WD/WN, Obese Eyes: Bilateral Eye Normal Inspection, Bilateral Eye PERRL, Bilateral Eye EOMI HEENT: PERRL/EOMI, TMs Normal, Normal ENT Inspection Neck: Full Range of Motion, Normal Inspection Respiratory: No Accessory Muscle Use, No Respiratory Distress Cardiovascular: Regular Rate, Rhythm, Normal Peripheral Pulses Gastrointestinal: Non Tender, Soft Extremity: Normal Capillary Refill, Normal Inspection Neurologic/Psychiatric: Alert, Oriented x3, No Motor/Sensory Deficits Skin: Normal Color, Warm/Dry Progress/Results/Core Measures Suspected Sepsis Recent Fever Within 48 Hours: No Infection Criteria Present: Suspected New Infection New/Unexplained Altered Menta: No Sepsis Screen: No Definite Risk SIRS Temperature:98.0 Pulse: 73 Respiratory Rate: 16 Laboratory Tests 04/23/18 17:40: White Blood Count 9.0 Blood Pressure 121 /58 Mean: 79 Laboratory Tests 04/23/18 17:40: Creatinine 0.80, Platelet Count 258, Total Bilirubin 0.3 Results/Orders Lab Results Laboratory Tests Test 04/23/18 17:40 04/23/18 17:41 Range/Units White Blood Count 9.0 4.3-11.0 10^3/uL Red Blood Count 4.73 4.35-5.85 10^6/uL Hemoglobin 12.4 11.5-16.0 G/DL Hematocrit 38 35-52 % Mean Corpuscular Volume 81 80-99 FL Mean Corpuscular Hemoglobin 26 25-34 PG Mean Corpuscular Hemoglobin Concent 32 32-36 G/DL Red Cell Distribution Width 13.0 10.0-14.5 % Platelet Count 258 130-400 10^3/uL Mean Platelet Volume 10.5 H 7.4-10.4 FL Neutrophils (%) (Auto) 74 42-75 % Lymphocytes (%) (Auto) 20 12-44 % Monocytes (%) (Auto) 5 0-12 % Eosinophils (%) (Auto) 1 0-10 % Basophils (%) (Auto) 0 0-10 % Neutrophils # (Auto) 6.7 1.8-7.8 X 10^3 Lymphocytes # (Auto) 1.8 1.0-4.0 X 10^3 Monocytes # (Auto) 0.5 0.0-1.0 X 10^3 Eosinophils # (Auto) 0.1 0.0-0.3 10^3/uL Basophils # (Auto) 0.0 0.0-0.1 10^3/uL Sodium Level 141 135-145 MMOL/L Potassium Level 3.8 3.6-5.0 MMOL/L Chloride Level 108 H 98-107 MMOL/L Carbon Dioxide Level 23 21-32 MMOL/L Anion Gap 10 5-14 MMOL/L Blood Urea Nitrogen 6 L 7-18 MG/DL Creatinine 0.80 0.60-1.30 MG/DL Estimat Glomerular Filtration Rate > 60 BUN/Creatinine Ratio 8 Glucose Level 107 H 70-105 MG/DL Calcium Level 9.2 8.5-10.1 MG/DL Corrected Calcium 9.1 8.5-10.1 MG/DL Total Bilirubin 0.3 0.1-1.0 MG/DL Aspartate Amino Transf (AST/SGOT) 15 5-34 U/L Alanine Aminotransferase (ALT/SGPT) 19 0-55 U/L Alkaline Phosphatase 61 40-136 U/L Total Protein 7.6 6.4-8.2 GM/DL Albumin 4.1 3.2-4.5 GM/DL Lipase 13 8-78 U/L Serum Test, Qualitative NEGATIVE NEGATIVE Urine Color YELLOW Urine Clarity VERY CLOUDY H Urine pH 7 5-9 Urine Specific [place] 1.015 L 1.016-1.022 Urine Protein 1+ H NEGATIVE Urine Glucose (UA) NEGATIVE NEGATIVE Urine Ketones NEGATIVE NEGATIVE Urine Nitrite NEGATIVE NEGATIVE Urine Bilirubin NEGATIVE NEGATIVE Urine Urobilinogen NORMAL NORMAL MG/DL Urine Leukocyte Esterase 1+ H NEGATIVE Urine RBC (Auto) NEGATIVE NEGATIVE Urine RBC NONE /HPF Urine WBC NONE /HPF Urine Squamous Epithelial Cells 10-25 H /HPF Urine Crystals NONE /LPF Urine Bacteria NEGATIVE /HPF Urine Casts NONE /LPF Urine Mucus SMALL H /LPF Urine Culture Indicated NO My Orders Orders - CAMERON JAMES CLINICAL NUTRITIONIST Ua Culture If Indicated (04/23/18 17:35) Hcg,Qualitative Serum (04/23/18 17:35) Lipase (04/23/18 17:35) Cbc With Automated Diff (04/23/18 17:35) Comprehensive Metabolic Panel (04/23/18 17:35) Meclizine Tablet (Antivert Tablet) (04/23/18 17:45) Medications Given in ED Current Medications Medications Dose Ordered Sig/Kayla Route Start Time Stop Time Status Last Admin Dose Admin Meclizine HCl 25 mg ONCE ONCE PO 04/23/18 17:45 04/23/18 17:46 DC 04/23/18 17:45 25 MG Vital Signs/I&O 04/23/18 17:10 Temp 98.0 Pulse 73 Resp 16 B/P (MAP) 121/58 (79) Pulse Ox 100 O2 Delivery Room Air Capillary Refill : Less Than 3 Seconds Blood Pressure Mean: 79 Departure Communication (Admissions) 1718-she is feeling better after meclizine. Impression Primary Impression: Viral syndrome Disposition: HOME, SELF-CARE Condition: Stable Departure-Patient Inst. Decision time for Depature: 18:24 Referrals: ANN-MARIE HASTINGS MD (PCP/Family) Primary Care Physician Patient Instructions: VIRAL SYNDROME Add. Discharge Instructions: 1. Drink plenty of fluids 2. Return to ER for any concerns. Follow-up with your doctor next week.All discharge instructions reviewed with patient and/or family. Voiced understanding. CAMERON JAMES APRN Apr 23, 2018 17:38
[2018-04-23] MEDS ORDERED: MECLIZINE 25 MG (ANTIVERT) TAB PO ONE (17:45)
[2018-04-23 17:46] LABS: BILIRUBIN,URINE NEGATIVE (NEGATIVE); CLARITY,URINE VERY CLOUDY; COLOR,URINE YELLOW; GLUCOSE, URINE (UA) NEGATIVE (NEGATIVE); KETONES,URINE NEGATIVE (NEGATIVE); LEUKOCYTE ESTERASE ,URINE 1+ (NEGATIVE); NITRITE,URINE NEGATIVE (NEGATIVE); PH,URINE 7 (5-9); PROTEIN,URINE 1+ (NEGATIVE); UROBILINOGEN,URINE NORMAL (NORMAL)
[2018-04-23 17:52] LABS: BACTERIA,URINE NEGATIVE /HPF
[2018-04-23 17:54] LABS: BASOPHILS % (AUTO) 0 % (0-10); EOSINOPHILS # (AUTO) 0.1 10^3/uL (0.0-0.3); EOSINOPHILS % (AUTO) 1 % (0-10); HEMATOCRIT 38 % (35-52); HEMOGLOBIN 12.4 G/DL (11.5-16.0); LYMPHOCYTES # (AUTO) 1.8 X 10^3 (1.0-4.0); LYMPHOCYTES % (AUTO) 20 % (12-44); MEAN CORPUSCULAR HEMOGLOBIN 26 PG (25-34); MEAN CORPUSCULAR HGB CONC 32 G/DL (32-36); MEAN CORPUSCULAR VOLUME 81 FL (80-99); MEAN PLATELET VOLUME 10.5 FL (7.4-10.4); MONOCYTES # (AUTO) 0.5 X 10^3 (0.0-1.0); MONOCYTES % (AUTO) 5 % (0-12); NEUTROPHILS # (AUTO) 6.7 X 10^3 (1.8-7.8); NEUTROPHILS % (AUTO) 74 % (42-75); PLATELET COUNT 258 10^3/uL (130-400); RED BLOOD COUNT 4.73 10^6/uL (4.35-5.85)
[2018-04-23 18:18] LABS: ALANINE AMINOTRANSFERASE 19 U/L (0-55); ALBUMIN 4.1 GM/DL (3.2-4.5); ALKALINE PHOSPHATASE 61 U/L (40-136); BILIRUBIN,TOTAL 0.3 MG/DL (0.1-1.0); BUN/CREATININE RATIO 8; CALCIUM 9.2 MG/DL (8.5-10.1); CARBON DIOXIDE 23 MMOL/L (21-32); CHLORIDE 108 MMOL/L (98-107); GFR ESTIMATED > 60; GLUCOSE 107 MG/DL (70-105); LIPASE 13 U/L (8-78); POTASSIUM 3.8 MMOL/L (3.6-5.0); SODIUM 141 MMOL/L (135-145); TOTAL PROTEIN 7.6 GM/DL (6.4-8.2)
[2018-04-23 18:35] VITALS: BP 121/58
== END 2018-04-23 18:35 | disposition home or self-care (01) ==
LOC: EDUNIT# 17:02 → ER 17:04
DX: B34.9 Viral infection, unspecified (principal); Z98.890 Other specified postprocedural states; Z87.448 Personal history of other diseases of urinary system
CPT/HCPCS: 36415; 80053; 81000; 83690; 84703; 85025

== ENCOUNTER 2018-12-22 15:40 | Emergency (ER) | payer BC ==
[~2018-12-22] VITALS: Ht 152.4 cm; Wt 127.0 kg
[2018-12-22] MEDS ORDERED: DIAZEPAM INJ 10 MG/2 ML (VALIUM) SYR IVP PRN (16:00)
[2018-12-22] MEDS ORDERED: KETOROLAC 30 MG/ML VIAL IVP ONE (16:00)
[2018-12-22] MEDS ORDERED: NS IV 1000 ML 1,000 ML IV SCH (16:00)
--- NOTE | 2018-12-22 16:02 | ED Chest Pain ---
General Stated Complaint: CHEST PAIN Source: patient Exam Limitations: no limitations History of Present Illness Date Seen by Provider: Dec 22, 2018 Time Seen by Provider: 15:45 Initial Comments The patient is a very pleasant obese 28-year-old female who presents for evaluation of left chest wall discomfort. She states that she was at work and felt a sudden pain in the left chest wall which was worse with breathing and movement of her left arm. She also states the area is sore to touch. She denies any prior cardiac workup. She denies any family history of cardiac problems. She takes no prescription medications and has not had similar symptoms previously. She states it hurts to breathe but she does not feel like there is any difficul ty breathing or any shortness of breath. Resisted bench press motion of the left arm elicits the same pain. She denies fevers or chills, nausea or vomiting, abdominal pain, back or flank pain, palpitations, dizziness or syncope. She is no history of DVT or PE and denies any recent travel. She does mention that she has been working a hot environment without air conditioning and has not urinated today. She mentions that she has been working at the [employer] for 7 years and denies of any recently changed and denies any injury today which she can recall. Timing/Duration: 1/2 hour Severity/Quality: moderate Location: other (left chest wall) Radiation: no radiation Activities at Onset: other (inbetween lifting pieces of metal at work) Prior CP/Workup: no prior chest pain, no prior cardiac workup Modifying Factors: improves with breathing (makes it worse), improves with movement (of left arm makes it worse), improves with palpation (makes it worse) ASA po DIE WELDER: No NTG SL DIE WELDER: No Allergies and Home Medications Allergies Coded Allergies: No Known Drug Allergies (Unverified , 06/21/13) Patient Home Medication List Home Medication List Reviewed: Yes Review of Systems Review of Systems Constitutional: no symptoms reported EENTM: No Symptoms Reported Respiratory: No Symptoms Reported Cardiovascular: Chest Pain (left) Gastrointestinal: No Symptoms Reported Genitourinary: No Symptoms Reported Musculoskeletal: no symptoms reported Skin: no symptoms reported Psychiatric/Neurological: No Symptoms Reported Endocrine: No Symptoms Reported Hematologic/Lymphatic: No Symptoms Reported All Other Systems Reviewed Negative Unless Noted: Yes Past Ejkyped-Lxelug-Lmgaqm Hx Past Med/Social Hx: Reviewed Nursing Past Med/Soc Hx Patient Social History 2nd Hand Smoke Exposure: No Recent Hopitalizations: No Immunizations Up To Date Tetanus Booster (TDap): Less than 5yrs Date of Influenza Vaccine: May 29, 2013 Seasonal Allergies Seasonal Allergies: No Past Medical History Surgeries: Yes ( X3) Respiratory: No Cardiac: No Neurological: No Reproductive Disorders: No Female Reproductive Disorders: Ovarian Cyst Gastrointestinal: No Musculoskeletal: No Endocrine: No Cancer: No Psychosocial: No Integumentary: No Blood Disorders: No Adverse Reaction/Blood Tranf: No Family Medical History No Family History of: Abdominal aortic aneurysm Cancer Family history: Alzheimer's disease Family history: Breast disease Family history: Cardiovascular disease Family history: Diabetes mellitus Family history: Gastrointestinal disease Family history: Thyroid disorder History of - disorder Myocardial infarction Seizure disorder Stroke No Pertinent Family Hx Physical Exam Vital Signs Vital Signs - First Documented 12/22/18 15:45 Temp 98.7 Pulse 85 Resp 22 B/P (MAP) 103/56 (72) Pulse Ox 99 O2 Delivery Room Air Capillary Refill : Height, Weight, BMI Height: 5'0" Weight: 180lbs. oz. 81.235664wf; 44.91 BMI Method:Stated General Appearance: No Apparent Distress, WD/WN HEENT: PERRL/EOMI, TMs Normal Neck: Full Range of Motion, Normal Inspection Respiratory: Lungs Clear, Normal Breath Sounds, No Accessory Muscle Use, No Respiratory Distress, Other (left chest wall tenderness present. Resisted bench press motion reproduces left chest wall pain/complaint) Cardiovascular: Regular Rate, Rhythm, No Murmur, Normal Peripheral Pulses Gastrointestinal: Normal Bowel Sounds, No Pulsatile Mass, Non Tender, Soft Extremity: Normal Capillary Refill, Normal Inspection, Normal Range of Motion, Non Tender, No Calf Tenderness Neurologic/Psychiatric: Alert, Oriented x3, No Motor/Sensory Deficits, Normal Mood/Affect, decorative greens cutter II-XII Norm as Tested Skin: Normal Color, Warm/Dry Lymphatic: No Adenopathy Progress/Results/Core Measures Results/Orders Lab Results Laboratory Tests Test 12/22/18 15:57 12/22/18 16:10 Range/Units White Blood Count 8.2 4.3-11.0 10^3/uL Red Blood Count 4.48 4.35-5.85 10^6/uL Hemoglobin 12.2 11.5-16.0 G/DL Hematocrit 36 35-52 % Mean Corpuscular Volume 81 80-99 FL Mean Corpuscular Hemoglobin 27 25-34 PG Mean Corpuscular Hemoglobin Concent 34 32-36 G/DL Red Cell Distribution Width 13.3 10.0-14.5 % Platelet Count 245 130-400 10^3/uL Mean Platelet Volume 10.9 H 7.4-10.4 FL Neutrophils (%) (Auto) 63 42-75 % Lymphocytes (%) (Auto) 28 12-44 % Monocytes (%) (Auto) 6 0-12 % Eosinophils (%) (Auto) 2 0-10 % Basophils (%) (Auto) 0 0-10 % Neutrophils # (Auto) 5.1 1.8-7.8 X 10^3 Lymphocytes # (Auto) 2.3 1.0-4.0 X 10^3 Monocytes # (Auto) 0.5 0.0-1.0 X 10^3 Eosinophils # (Auto) 0.2 0.0-0.3 10^3/uL Basophils # (Auto) 0.0 0.0-0.1 10^3/uL D-Dimer 0.38 0.00-0.49 UG/ML Sodium Level 137 135-145 MMOL/L Potassium Level 3.5 L 3.6-5.0 MMOL/L Chloride Level 102 98-107 MMOL/L Carbon Dioxide Level 21 21-32 MMOL/L Anion Gap 14 5-14 MMOL/L Blood Urea Nitrogen 11 7-18 MG/DL Creatinine 0.83 0.60-1.30 MG/DL Estimat Glomerular Filtration Rate > 60 BUN/Creatinine Ratio 13 Glucose Level 105 70-105 MG/DL Calcium Level 9.0 8.5-10.1 MG/DL Corrected Calcium 8.8 8.5-10.1 MG/DL Magnesium Level 1.8 1.6-2.4 MG/DL Total Bilirubin 0.3 0.1-1.0 MG/DL Aspartate Amino Transf (AST/SGOT) 20 5-34 U/L Alanine Aminotransferase (ALT/SGPT) 22 0-55 U/L Alkaline Phosphatase 56 40-136 U/L Troponin I < 0.30 <0.30 NG/ML Total Protein 7.5 6.4-8.2 GM/DL Albumin 4.2 3.2-4.5 GM/DL Lipase 14 8-78 U/L Urine Color DK YELLOW Urine Clarity SLT CLOUDY Urine pH 6.0 5-9 Urine Specific Cas[place] >=1.030 1.016-1.022 Urine Protein NEGATIVE NEGATIVE Urine Glucose (UA) NEGATIVE NEGATIVE Urine Ketones TRACE H NEGATIVE Urine Nitrite POSITIVE H NEGATIVE Urine Bilirubin NEGATIVE NEGATIVE Urine Urobilinogen 0.2 NORMAL MG/DL Urine Leukocyte Esterase NEGATIVE NEGATIVE Urine RBC (Auto) 1+ H NEGATIVE Urine RBC NONE /HPF Urine WBC 2-5 /HPF Urine Squamous Epithelial Cells 10-25 H /HPF Urine Renal Epithelial Cells 10-25 H /HPF Urine Crystals NONE /LPF Urine Calcium Oxalate Crystals /LPF Urine Bacteria LARGE H /HPF Urine Casts NONE /LPF Urine Mucus NONE /LPF Urine Culture Indicated YES Urine Test NEGATIVE NEGATIVE My Orders Orders - SHILA MABRY DO Cbc With Automated Diff (12/22/18 15:52) Magnesium (12/22/18 15:52) Chest 1 View Ap/Pa Only (12/22/18 15:52) Ekg Tracing (12/22/18 15:52) Comprehensive Metabolic Panel (12/22/18 15:52) O2 (12/22/18 15:52) Monitor-Rhythm Ecg Trace Only (12/22/18 15:52) Ed Iv/Invasive Line Start (12/22/18 15:52) Lipase (12/22/18 15:52) Troponin I (12/22/18 15:52) Fibrin Degradation Products (12/22/18 15:52) Diazepam Injection (Valium Injection) (12/22/18 16:00) Ketorolac Injection (Toradol Injection) (12/22/18 16:00) Ua Culture If Indicated (12/22/18 15:55) Hcg,Qualitative Urine (12/22/18 15:55) Ns Iv 1000 Ml (Sodium Chloride 0.9%) (12/22/18 16:00) Urine Culture (12/22/18 16:10) Medications Given in ED Current Medications Medications Dose Ordered Sig/Kayla Route Start Time Stop Time Status Last Admin Dose Admin Ketorolac Tromethamine 30 mg ONCE ONCE IVP 12/22/18 16:00 12/22/18 16:01 DC 12/22/18 16:22 30 MG Vital Signs/I&O 12/22/18 15:45 Temp 98.7 Pulse 85 Resp 22 B/P (MAP) 103/56 (72) Pulse Ox 99 O2 Delivery Room Air Progress Progress Note : Progress Note @1712 - Patient and updated on lab and imaging results. The patient's urinalysis was noted to be a dirty catch and she has no symptoms concerning for UTI so she'll go home with antibiotics. She has no complaints, states she is feeling much better, is asking to be discharged home. Workup today fails reveal any emergent pathology. Advised the patient to follow up with her primary care physician in the next 1-2 days and to return to the emergency Department immediately for new or worsening symptoms. She expresses verbal understanding and agreement with the plan and is stable for discharge home. Departure Impression Primary Impression: Chest wall pain Disposition: HOME, SELF-CARE Condition: Stable Departure-Patient Inst. Decision time for Depature: 17:12 Referrals: DIAMOND RODRIGUEZ MD (PCP/Family) Primary Care Physician Patient Instructions: Chest Pain That Is Not Caused by the Heart (DC), Muscle Spasms (DC), Muscle Strain Add. Discharge Instructions: Take ibuprofen and/or Tylenol home for pain relief as needed. Follow up with her primary care doctor in the next 1-2 days and return to the emergency Department immediately for new or worsening symptoms. States very well-hydrated at work. Work/School Note: Work Release Form Date Seen in the Emergency Department: Dec 22, 2018 Return to Work: Dec 23, 2018 Restrictions: No Restrictions SIHLA MABRY DO Dec 22, 2018 16:02
[2018-12-22 16:09] LABS: HEMATOCRIT 36 % (35-52); HEMOGLOBIN 12.2 G/DL (11.5-16.0); MEAN CORPUSCULAR HEMOGLOBIN 27 PG (25-34); MEAN CORPUSCULAR VOLUME 81 FL (80-99); WHITE BLOOD COUNT 8.2 10^3/uL (4.3-11.0)
[2018-12-22 16:10] LABS: BASOPHILS % (AUTO) 0 % (0-10); EOSINOPHILS # (AUTO) 0.2 10^3/uL (0.0-0.3); EOSINOPHILS % (AUTO) 2 % (0-10); LYMPHOCYTES # (AUTO) 2.3 X 10^3 (1.0-4.0); LYMPHOCYTES % (AUTO) 28 % (12-44); MEAN CORPUSCULAR HGB CONC 34 G/DL (32-36); MEAN PLATELET VOLUME 10.9 FL (7.4-10.4); MONOCYTES # (AUTO) 0.5 X 10^3 (0.0-1.0); MONOCYTES % (AUTO) 6 % (0-12); NEUTROPHILS # (AUTO) 5.1 X 10^3 (1.8-7.8); NEUTROPHILS % (AUTO) 63 % (42-75); PLATELET COUNT 245 10^3/uL (130-400); RED CELL DISTRIBUTION WIDTH 13.3 % (10.0-14.5)
[2018-12-22 16:35] LABS: CLARITY,URINE SLT CLOUDY; COLOR,URINE DK YELLOW; PROTEIN,URINE NEGATIVE (NEGATIVE)
[2018-12-22 16:36] LABS: BACTERIA,URINE LARGE /HPF; BILIRUBIN,URINE NEGATIVE (NEGATIVE); GLUCOSE, URINE (UA) NEGATIVE (NEGATIVE); KETONES,URINE TRACE (NEGATIVE); LEUKOCYTE ESTERASE ,URINE NEGATIVE (NEGATIVE); NITRITE,URINE POSITIVE (NEGATIVE); UROBILINOGEN,URINE 0.2 MG/DL (NORMAL)
[2018-12-22 16:38] LABS: BUN/CREATININE RATIO 13; CARBON DIOXIDE 21 MMOL/L (21-32); CHLORIDE 102 MMOL/L (98-107); CREATININE SERUM 0.83 MG/DL (0.60-1.30); GFR ESTIMATED > 60; POTASSIUM 3.5 MMOL/L (3.6-5.0); SODIUM 137 MMOL/L (135-145)
--- NOTE | 2018-12-22 16:38 | Diagnostic Imaging Report ---
CHEST 1 VIEW AP/PA ONLY Indication: Left-sided chest wall pain Comparison: 06/01/2017 Findings: No focal airspace disease in the visualized lungs. Please note that the posterior lower lobes are poorly evaluated by portable radiography. No pleural effusion or pneumothorax. Normal cardiomediastinal silhouette. Impression: No acute cardiopulmonary process by portable radiography. Dictated by: Dictated on workstation # [id number]
[2018-12-22 16:39] LABS: ALANINE AMINOTRANSFERASE 22 U/L (0-55); ALKALINE PHOSPHATASE 56 U/L (40-136); BILIRUBIN,TOTAL 0.3 MG/DL (0.1-1.0); GLUCOSE 105 MG/DL (70-105); MAGNESIUM 1.8 MG/DL (1.6-2.4); TOTAL PROTEIN 7.5 GM/DL (6.4-8.2)
[2018-12-22 16:40] LABS: ALBUMIN 4.2 GM/DL (3.2-4.5); LIPASE 14 U/L (8-78)
[2018-12-22 17:26] VITALS: BP 105/52
== END 2018-12-22 17:26 | disposition home or self-care (01) ==
LOC: EDUNIT# 15:40 → ER FS 15:42
DX: R07.89 Other chest pain (principal)
CPT/HCPCS: 36415; 71045; 80053; 81000; 83690; 83735; 84484; 84703; 85025; 85379; 87077; 87088; 87186; 93005; 93041

== ENCOUNTER 2019-04-13 09:40 | Inpatient (IN) | payer BC ==
[2019-04-13] VITALS (8 sets, daily range): BP systolic 66–128; BP diastolic 40–82
[~2019-04-13] VITALS: Ht 152.4 cm; Wt 115.6 kg
--- NOTE | 2019-04-13 11:09 | ED General ---
General Chief Complaint: Oral/Throat Problems Stated Complaint: TROUBLE SWALLOWING Nursing Triage Note: PT AMB TO RM 8 WITH COMPLAINT OF TROUBLE, PAINFUL SWALLOWING, AND NECK SWELLING/REDNESS FOR THREE DAYS. PT STATES SHE WAS SEEN AT [facility] TWO DAYS AGO AND CHECKED FOR MONO AND MUMPS. MONO CAME BACK NEGATIVE, MUMPS TESTING IS NOT RESULTED. PT WAS SENT HERE BY [facility] TODAY. Nursing Sepsis Screen: No Definite Risk Source of Information: Patient Exam Limitations: No Limitations (NORMA ADDISON MED STUDENT) History of Present Illness Date Seen by Provider: Apr 13, 2019 Time Seen by Provider: 10:52 Initial Comments Pt endorses 3 days of difficult and painful swallowing. Has experienced gradual painful swelling around angle of the mandible that has progressed to involving her chin and anterior neck. Evaluated at the [facility] two days prior for mumps and mono.Denies any fever, chills, headache, nausea, vomiting, cough or shortness of breath. Also denies recent dental work, no facial or oral trauma, recent infections. During interview, patient developed acute RUQ pain that caused her to squirm off the bed and pace the room. States she has never had this pain before today. Timing/Duration: 2-3 Days Severity: Moderate Modifying Factors: improves with Eating Associated Systoms: No Chest Pain, No Cough, No Fever/Chills, No Headaches, No Nausea/Vomiting, No Rash, No Shortness of Air (NORMA ADDISON,STEPHANI STUDENT) Allergies and Home Medications Allergies Coded Allergies: No Known Drug Allergies (Unverified , 06/21/13) Patient Home Medication List Home Medication List Reviewed: Yes (NORMA ADDISON MED STUDENT) Review of Systems Review of Systems Constitutional: No chills, No fever EENTM: see HPI, mouth pain, mouth swelling, throat pain, throat swelling; No ear discharge, No ear pain, No eye pain, No vision loss, No dental problems, No nose pain Respiratory: No cough, No dyspnea on exertion, No hemoptysis, No short of breath Cardiovascular: No chest pain, No palpitations Gastrointestinal: RUQ, see HPI, abdominal pain (RUQ); No constipation, No diarrhea; dysphagia; No hematemesis; loss of appetite; No nausea, No vomiting Genitourinary: No incontinence, No pain Musculoskeletal: No back pain, No joint pain Skin: No lesions, No lumps, No rash (NORMA ADDISONGetMaid STUDENT) Past Lunmtsh-Trpcpp-Yogrwv Hx Patient Social History Alcohol Use: Denies Use Recreational Drug Use: No Smoking Status: Never a Smoker 2nd Hand Smoke Exposure: No Recent Foreign Travel: No Contact w/Someone Who Travel: No Recent Infectious Disease Expo: No Recent Hopitalizations: No Physical Abuse: No Sexual Abuse: No Mistreated: No Fear: No (NORMA ADDISON,Casengo) Immunizations Up To Date Tetanus Booster (TDap): Less than 5yrs Date of Influenza Vaccine: May 29, 2013 (NORMA ADDISON,Casengo) Seasonal Allergies Seasonal Allergies: No (NORMA ADDISONCasengo) Past Medical History Surgeries: Yes ( X3, fallopian tubes removed bilaterally) Section Respiratory: No Cardiac: No Neurological: No Reproductive Disorders: No Female Reproductive Disorders: Ovarian Cyst Genitourinary: No Gastrointestinal: No Musculoskeletal: No Endocrine: No HEENT: No Cancer: No Psychosocial: No Integumentary: No Blood Disorders: No Adverse Reaction/Blood Tranf: No (NORMA ADDISONGetMaid RAMY) Family Medical History No Family History of: Abdominal aortic aneurysm Cancer Family history: Alzheimer's disease Family history: Breast disease Family history: Cardiovascular disease Family history: Diabetes mellitus Family history: Gastrointestinal disease Family history: Thyroid disorder History of - disorder Myocardial infarction Seizure disorder Stroke No Pertinent Family Hx (NORMA ADDISON MED STUDENT) Physical Exam Vital Signs Vital Signs - First Documented 04/13/19 09:57 Temp 36.7 Pulse 94 Resp 20 B/P (MAP) 118/83 (95) Pulse Ox 98 O2 Delivery Room Air (ALEX GARCIA MD) Vital Signs Capillary Refill : Less Than 3 Seconds (NORMA ADDISONGetMaid STUDENT) Height, Weight, BMI Height: 5'0" Weight: 280lbs. oz. 127.763679vk; 47.00 BMI Method:Stated General Appearance: WD/WN, Mild Distress, Obese Eyes: Bilateral Eye Normal Inspection, Bilateral Eye PERRL, Bilateral Eye EOMI HEENT: TMs Normal, Moist Mucous Membranes, Pharyngeal Erythema, Tonsillar Enlargement (large, almost touching ) Neck: Lymphadenopathy (L), Lymphadenopathy (R), Tender Lateral, Other (diffusely engorged, erythematous, tender to palpation) Respiratory: Chest Non Tender, Lungs Clear, Normal Breath Sounds, No Accessory Muscle Use, No Respiratory Distress Cardiovascular: Regular Rate, Rhythm, No Edema, No Gallop, No Murmur, Normal Peripheral Pulses Gastrointestinal: Soft; No Rebound; Tenderness (RUQ ), Other (+ leary sign ) Back: No CVA Tenderness, No Vertebral Tenderness Extremity: No Calf Tenderness, No Pedal Edema Neurologic/Psychiatric: Alert, Oriented x3 Skin: Normal Color, Warm/Dry Lymphatic: No Adenopathy (no supra/infraclavicular LAD ), Other (Anterior/posterior cervical LAD ) (NORMA ADDISON,MED STUDENT) Progress/Results/Core Measures Suspected Sepsis Recent Fever Within 48 Hours: No Infection Criteria Present: None New/Unexplained Altered Menta: No Sepsis Screen: No Definite Risk SIRS Temperature: Pulse: 94 Respiratory Rate: 20 Laboratory Tests 04/13/19 12:00: White Blood Count 5.1 Blood Pressure 118 /83 Mean: 95 Laboratory Tests 04/13/19 12:00: Creatinine 0.85, Platelet Count 173, Total Bilirubin 0.3 (NORMA ADDISON,MED STUDENT) SIRS Laboratory Tests 04/13/19 12:00: White Blood Count 5.1 Laboratory Tests 04/13/19 12:00: Creatinine 0.85, Platelet Count 173, Total Bilirubin 0.3 (ALEX GARCIA MD) Results/Orders Lab Results Laboratory Tests Test 04/13/19 12:00 Range/Units White Blood Count 5.1 4.3-11.0 10^3/uL Red Blood Count 4.96 4.35-5.85 10^6/uL Hemoglobin 13.2 11.5-16.0 G/DL Hematocrit 40 35-52 % Mean Corpuscular Volume 81 80-99 FL Mean Corpuscular Hemoglobin 27 25-34 PG Mean Corpuscular Hemoglobin Concent 33 32-36 G/DL Red Cell Distribution Width 13.1 10.0-14.5 % Platelet Count 173 130-400 10^3/uL Mean Platelet Volume 10.0 7.4-10.4 FL Neutrophils (%) (Auto) 49 42-75 % Lymphocytes (%) (Auto) 38 12-44 % Monocytes (%) (Auto) 12 0-12 % Eosinophils (%) (Auto) 0 0-10 % Basophils (%) (Auto) 0 0-10 % Neutrophils # (Auto) 2.5 1.8-7.8 X 10^3 Lymphocytes # (Auto) 2.0 1.0-4.0 X 10^3 Monocytes # (Auto) 0.6 0.0-1.0 X 10^3 Eosinophils # (Auto) 0.0 0.0-0.3 10^3/uL Basophils # (Auto) 0.0 0.0-0.1 10^3/uL Sodium Level 138 135-145 MMOL/L Potassium Level 3.7 3.6-5.0 MMOL/L Chloride Level 105 98-107 MMOL/L Carbon Dioxide Level 22 21-32 MMOL/L Anion Gap 11 5-14 MMOL/L Blood Urea Nitrogen 8 7-18 MG/DL Creatinine 0.85 0.60-1.30 MG/DL Estimat Glomerular Filtration Rate > 60 BUN/Creatinine Ratio 9 Glucose Level 102 70-105 MG/DL Calcium Level 8.7 8.5-10.1 MG/DL Corrected Calcium 8.6 8.5-10.1 MG/DL Total Bilirubin 0.3 0.1-1.0 MG/DL Aspartate Amino Transf (AST/SGOT) 28 5-34 U/L Alanine Aminotransferase (ALT/SGPT) 31 0-55 U/L Alkaline Phosphatase 62 40-136 U/L Total Protein 7.7 6.4-8.2 GM/DL Albumin 4.1 3.2-4.5 GM/DL Lipase 7 L 8-78 U/L Serum Test, Qualitative NEGATIVE NEGATIVE Group A Streptococcus Screen NEGATIVE NEGATIVE (ALEX GARCIA MD) My Orders Orders - ALEX GARCIA MD Ed Iv/Invasive Line Start (04/13/19 11:16) Ns Iv 1000 Ml (Sodium Chloride 0.9%) (04/13/19 11:16) Cbc With Automated Diff (04/13/19 11:16) Comprehensive Metabolic Panel (04/13/19 11:16) Rapid Strep A Screen (04/13/19 11:16) Hcg,Qualitative Serum (04/13/19 11:16) Lipase (04/13/19 11:16) Us Gallbladder [id number] (04/13/19 11:16) Ct Neck (Soft Tissue) W (04/13/19 11:27) Iohexol Injection (Omnipaque 350 Mg/Ml 1 (04/13/19 11:45) Received Contrast (Hold Metformin- Contr (04/13/19 11:45) Sodium Chloride Flush (Catheter Flush Sy (04/13/19 11:45) Ns (Ivpb) (Sodium Chloride 0.9% Ivpb Bag (04/13/19 11:45) Ketorolac Injection (Toradol Injection) (04/13/19 11:41) Piperacillin Sodium/Tazobactam (Zosyn Vi (04/13/19 14:15) Dexamethasone Injection (Decadron Inject (04/13/19 14:15) Vancomycin Injection (Vancomycin Injecti (04/13/19 15:11) (ALEX GARCIA MD) Medications Given in ED Current Medications Medications Dose Ordered Sig/Kayla Route Start Time Stop Time Status Last Admin Dose Admin Dexamethasone Sodium Phosphate 10 mg ONCE ONCE IV 04/13/19 14:15 04/13/19 14:17 DC 04/13/19 14:32 10 MG Iohexol 100 ml ONCE ONCE IV 04/13/19 11:45 04/13/19 11:46 DC 04/13/19 12:52 75 ML Piperacillin Sod/ Tazobactam Sod 4.5 gm/Sodium Chloride 100 ml @ 200 mls/hr ONCE ONCE IV 04/13/19 14:15 04/13/19 14:44 DC 04/13/19 14:32 200 MLS/HR Sodium Chloride 100 ml ONCE ONCE IV 04/13/19 11:45 04/13/19 11:46 DC 04/13/19 12:52 80 ML Sodium Chloride 1,000 ml @ 0 mls/hr Q0M ONCE IV 04/13/19 11:16 04/13/19 11:22 DC 04/13/19 11:56 0 MLS/HR (ALEX GARCIA MD) Vital Signs/I&O 04/13/19 09:57 Temp 36.7 Pulse 94 Resp 20 B/P (MAP) 118/83 (95) Pulse Ox 98 O2 Delivery Room Air (ALEX GARCIA MD) Vital Signs/I&O Capillary Refill : Less Than 3 Seconds (NORMA ADDISON,MED STUDENT) Blood Pressure Mean: 95 POS Progress Note : Time: 13:41 Progress Note Conferred with [facility] about pts labwork performed on 04/11/2019. Monospot negative. IgM titers returned as 0. Mumps virus RNA pending. Pt endorses a bitter taste in her mouth when her parotid glands are palpated. (NORMA ADDISON,MED STUDENT) Progress Note : Progress Note I have seen and evaluated the patient and agree with above except as indicated. I have directed the plan of care. Patient is here with worsening throat and neck pain. Notes that she's had increasing redness of the anterior neck with swelling which is not normal for her. Denies nausea or vomiting. Denies breathing problems. Physical exam does show markedly erythematous anterior neck below the jawline as well as intraoral erythema posteriorly with swollen tonsils. She does have whitish appearance to the top of the tongue. Lungs are clear to auscultation bilaterally. Abdomen is soft but she is tender in the right upper quadrant. Plan is for IV, labs, CT of the neck soft tissue as well as right upper quadrant ultrasound. We will give normal saline 1 L bolus. Toradol 30 mg IV. Monitor patient. 1422: I did discuss the case with Dr. Levin. Patient to be admitted to the ICU for the next cellulitis and retropharyngeal edema as well as submandibular swelling. Zosyn 4.5 g IV initiated. 1440: I did discuss the case with Noni Khan, lead person with Dr. Cross. She agrees with plan and will discuss with Dr. Cross. 1510: I did discuss the case with Dr. Cross and he will see the patient in consult and agrees with Zosyn and we will add vancomycin. Vancomycin 2 g IV ordered. Admit to the ICU, inpatient status. Patient agrees with plan. (ALEX GARCIA MD) Diagnostic Imaging Diagonstic Imaging: Ultrasound Plain Films/CT/US/NM/MRI: abdomen Comments NAME: OD[facility]ON RAJAN [facility] REC#: [id number] PT STATUS: REG ER : 1990 PHYSICIAN: ALEX GARCIA MD ADMIT DATE: 04/13/19/ER Draft POSDate of Exam:04/13/19 US GALLBLADDER [id number] PROCEDURE: US Gallbladder. TECHNIQUE: Multiple real-time grayscale images were obtained over the right upper quadrant in various projections. INDICATION: Difficulty swallowing and abdominal pain. FINDINGS: Liver is mildly enlarged at 18.6 cm. There is increased echogenicity throughout the liver, consistent with hepatic steatosis. No discrete liver mass is identified. The gallbladder is without stones or sludge. No wall thickening or biliary ductal dilatation is seen. Pancreas is grossly unremarkable. Right kidney is without calculi or hydronephrosis. There is no ascites. IMPRESSION: 1. Mild hepatomegaly and hepatic steatosis. 2. No evidence of cholelithiasis or acute cholecystitis. Dictated on workstation # [id number] Dict: 04/13/19 1213 Trans: 04/13/19 1216 [id number] [id number] Interpreted by: GUNJAN HENDRICKSON MD Electronically signed by: Diagonstic Imaging: CT Plain Films/CT/US/NM/MRI: head (NORMA ADDISON MED STUDENT) Plain Films/CT/US/NM/MRI: other Comments [facility]. POS [place], [place] POS NAME: ODILON RAJAN [facility] REC#: [id number] PT STATUS: REG ER : 1990 PHYSICIAN: ALEX GARCIA MD ADMIT DATE: 04/13/19/ER Draft POSDate of Exam:04/13/19 CT NECK (SOFT TISSUE) W PROCEDURE: CT neck soft tissue with contrast. TECHNIQUE: Multiple contiguous axial images were obtained through the neck after the administration of contrast. Auto Exposure Controls were utilized during the CT exam to meet ALARA standards for radiation dose reduction. INDICATION: Difficulty swallowing. COMPARISON: No prior studies are available for comparison. FINDINGS: Visualized intracranial structures are unremarkable. The bilateral maxillary sinuses are clear. There is some mucosal thickening of ethmoid air cells as well as the sphenoid sinus. Mastoids are well aerated. Posterior nasopharynx is unremarkable. There appears to be significant thickening to the oropharyngeal mucosa. A small low density along the left lateral wall of the oropharynx is seen measuring 6 mm. A very early abscess cannot be entirely excluded. Parapharyngeal fat planes are preserved. There is significant narrowing of the airway at the level of the oropharynx. There is some low-density edema identified in the parapharyngeal space bilaterally as well as the retropharyngeal space. No well formed retropharyngeal fluid collection or abscess is seen. There is bilateral parotid gland enlargement. Bilateral submandibular glands appear to be enlarged. There are enlarged lymph nodes in the jugulodigastric regions as well as posterior cervical regions bilaterally which are likely reactive. There appears to be some edema in the subcutaneous tissues of the neck bilaterally but no well-formed fluid collection is seen. IMPRESSION: Significant oropharyngeal mucosal space edema with some airway narrowing at the level of the oropharynx, consistent with pharyngitis. There is a tiny low density along the left lateral oropharyngeal wall which could represent a very early abscess. Edema in the deep neck spaces is seen, particularly retropharyngeal location consistent with retropharyngeal extension. No well-formed retropharyngeal abscess is seen at this time. There is a reactive lymphadenopathy in the neck bilaterally. There appears to be cellulitic changes in the soft tissues of the neck bilaterally as well. Dictated on workstation # [id number] Dict: 04/13/19 1347 Trans: 04/13/19 1403 [facility] [id number] Interpreted by: GUNJAN HENDRICKSON MD Electronically signed by: (ALEX GARCIA MD) Departure Communication (Admissions) Time/Spoke to Admitting Phy: 14:22 Time/Spoke to Consulting Phy: 14:40 (ALEX GARCIA MD) Impression Primary Impression: Cellulitis, neck Additional Impression: Submandibular swelling Disposition: ADMITTED INPATIENT Condition: Stable Admissions Decision to Admit Reason: Admit from ER (General) Decision to Admit/Date: Apr 13, 2019 Time/Decision to Admit Time: 14:22 (ALEX GARCIA MD) Departure-Patient Inst. Referrals: DIAMOND RODRIGUEZ MD (PCP/Family) Primary Care Physician NORMA ADDISON,MED STUDENT Apr 13, 2019 11:09 ALEX LEACH MD Apr 13, 2019 11:41 POS
[2019-04-13] MEDS ORDERED: NS IV 1000 ML 1,000 ML IV ONE (11:16)
[2019-04-13] MEDS ORDERED: KETOROLAC 30 MG/ML VIAL IVP STA (11:41)
[2019-04-13] MEDS ORDERED: CATHETER FLUSH 10 ML SYR IV PRN (11:45)
[2019-04-13] MEDS ORDERED: IOHEXOL 350 MG/ML 100 ML (OMNIPAQUE 350) VIAL IV ONE (11:45)
[2019-04-13] MEDS ORDERED: NS 100 ML (IVPB) BAG IV ONE (11:45)
[2019-04-13] MEDS ORDERED: HOLD METFORMIN - RECEIVED CONTRAST 20 ML VIAL IV SCH (11:45)
[2019-04-13 12:07] LABS: BASOPHILS % (AUTO) 0 % (0-10); EOSINOPHILS % (AUTO) 0 % (0-10); HEMATOCRIT 40 % (35-52); HEMOGLOBIN 13.2 G/DL (11.5-16.0); LYMPHOCYTES % (AUTO) 38 % (12-44); MEAN CORPUSCULAR HEMOGLOBIN 27 PG (25-34); MEAN CORPUSCULAR HGB CONC 33 G/DL (32-36); MEAN CORPUSCULAR VOLUME 81 FL (80-99); MONOCYTES # (AUTO) 0.6 X 10^3 (0.0-1.0); MONOCYTES % (AUTO) 12 % (0-12); NEUTROPHILS # (AUTO) 2.5 X 10^3 (1.8-7.8); NEUTROPHILS % (AUTO) 49 % (42-75); PLATELET COUNT 173 10^3/uL (130-400); RED CELL DISTRIBUTION WIDTH 13.1 % (10.0-14.5); WHITE BLOOD COUNT 5.1 10^3/uL (4.3-11.0)
--- NOTE | 2019-04-13 12:17 | Diagnostic Imaging Report ---
PROCEDURE: US Gallbladder. TECHNIQUE: Multiple real-time grayscale images were obtained over the right upper quadrant in various projections. INDICATION: Difficulty swallowing and abdominal pain. FINDINGS: Liver is mildly enlarged at 18.6 cm. There is increased echogenicity throughout the liver, consistent with hepatic steatosis. No discrete liver mass is identified. The gallbladder is without stones or sludge. No wall thickening or biliary ductal dilatation is seen. Pancreas is grossly unremarkable. Right kidney is without calculi or hydronephrosis. There is no ascites. IMPRESSION: 1. Mild hepatomegaly and hepatic steatosis. 2. No evidence of cholelithiasis or acute cholecystitis. Dictated by: Dictated on workstation # [id number]
[2019-04-13 12:25] LABS: ALANINE AMINOTRANSFERASE 31 U/L (0-55); ALBUMIN 4.1 GM/DL (3.2-4.5); ALKALINE PHOSPHATASE 62 U/L (40-136); BILIRUBIN,TOTAL 0.3 MG/DL (0.1-1.0); BUN/CREATININE RATIO 9; CALCIUM 8.7 MG/DL (8.5-10.1); CARBON DIOXIDE 22 MMOL/L (21-32); CHLORIDE 105 MMOL/L (98-107); CREATININE SERUM 0.85 MG/DL (0.60-1.30); GFR ESTIMATED > 60; GLUCOSE 102 MG/DL (70-105); LIPASE 7 U/L (8-78); POTASSIUM 3.7 MMOL/L (3.6-5.0); SODIUM 138 MMOL/L (135-145); TOTAL PROTEIN 7.7 GM/DL (6.4-8.2)
--- NOTE | 2019-04-13 14:03 | Diagnostic Imaging Report ---
PROCEDURE: CT neck soft tissue with contrast. TECHNIQUE: Multiple contiguous axial images were obtained through the neck after the administration of contrast. Auto Exposure Controls were utilized during the CT exam to meet ALARA standards for radiation dose reduction. INDICATION: Difficulty swallowing. COMPARISON: No prior studies are available for comparison. FINDINGS: Visualized intracranial structures are unremarkable. The bilateral maxillary sinuses are clear. There is some mucosal thickening of ethmoid air cells as well as the sphenoid sinus. Mastoids are well aerated. Posterior nasopharynx is unremarkable. There appears to be significant thickening to the oropharyngeal mucosa. A small low density along the left lateral wall of the oropharynx is seen measuring 6 mm. A very early abscess cannot be entirely excluded. Parapharyngeal fat planes are preserved. There is significant narrowing of the airway at the level of the oropharynx. There is some low-density edema identified in the parapharyngeal space bilaterally as well as the retropharyngeal space. No well formed retropharyngeal fluid collection or abscess is seen. There is bilateral parotid gland enlargement. Bilateral submandibular glands appear to be enlarged. There are enlarged lymph nodes in the jugulodigastric regions as well as posterior cervical regions bilaterally which are likely reactive. There appears to be some edema in the subcutaneous tissues of the neck bilaterally but no well-formed fluid collection is seen. IMPRESSION: Significant oropharyngeal mucosal space edema with some airway narrowing at the level of the oropharynx, consistent with pharyngitis. There is a tiny low density along the left lateral oropharyngeal wall which could represent a very early abscess. Edema in the deep neck spaces is seen, particularly retropharyngeal location consistent with retropharyngeal extension. No well-formed retropharyngeal abscess is seen at this time. There is a reactive lymphadenopathy in the neck bilaterally. There appears to be cellulitic changes in the soft tissues of the neck bilaterally as well. Dictated by: Dictated on workstation # [id number]
[2019-04-13] MEDS ORDERED: PIPERACILLIN SODIUM/TAZOBACTAM 4.5 GM in NS (IVPB) 100 ML IV ONE (14:15)
[2019-04-13] MEDS ORDERED: DEXAMETHASONE 10 MG/ML (DECADRON) 1 ML VIAL IV ONE (14:15)
[2019-04-13] MEDS ORDERED: VANCOMYCIN INJECTION 2,000 MG in NS IV 500 ML 500 ML IV STA (15:11)
[2019-04-13] MEDS ORDERED: ONDANSETRON 4 MG/2 ML (SDV) Z0FRAN IV PRN (17:15)
[2019-04-13] MEDS: NS IV 1000 ML 1,000 ML IV SCH (17:24)
--- NOTE | 2019-04-13 17:26 | NUR ---
CR 0.85; CR CL > 60; WT 111.4 KG; VANCO 2000 MG IV BOLUS GIVEN IN ER; CONTINUE WITH VANCO 1000 MG IV Q12H FOR 3 DAY THERAPY
[2019-04-13] MEDS ORDERED: EPINEPHrine 1 MG INJECTION 2 MG in NS (IVPB) 250 ML IV SCH (17:30)
--- NOTE | 2019-04-13 17:32 | NUR ---
DR SINGER IN TO SEE PATIENT NEW ORDERS RECEIVED. SEE ORDER HX.
[2019-04-13] MEDS ORDERED: DEXAMETHASONE 4 MG/ML SDV (DECADRON) IV ONE (18:00)
--- NOTE | 2019-04-13 18:37 | NUR ---
PT STATES " THAT SHE ACTUALLY SEES DR HASTINGS AT THE [facility]"
[2019-04-13] MEDS: DEXAMETHASONE 10 MG/ML (DECADRON) 1 ML VIAL IV SCH (18:51)
[2019-04-13] MEDS: NOREPINEPHRINE 4 MG in NS (IVPB) 250 ML IV SCH (19:17)
[2019-04-13] MEDS: VASOPRESSIN INJECTION 20 UNIT in NORMAL SALINE 100 ML IV SCH (19:17)
[2019-04-13] MEDS: PIPERACILLIN/TAZO 4.5 GM/NS 100 ML IV SCH ×2 (20:58)
--- NOTE | 2019-04-13 21:22 | History & Physical-Hospitalist ---
History of Present Illness HPI/Chief Complaint Chief complaint: Neck swelling with edema on CT scan surrounding airway History of present illness: This is a 28-year-old white female clinic patient of [facility] with a past medical history of metabolic syndrome and what appears to be PCOS with abdominal obesity who presents to the ER with neck swelling. Patient was found to have erythema around her neck and the adipose tissue under her chin CT scan was obtained showing edema surrounding the airway that could compromise her airway. She was given steroids in the ER Dr. Cross was consulted he evaluated her and did not feel like she was in any airway comp romise currently. I did confer with him outside the room. She is placed on broad-spectrum antibiotics she will continue on IV steroids and patient will be monitored closely. Source: patient, RN/MD Exam Limitations: no limitations Date Seen 04/13/19 Time Seen by a Provider: 17:30 Attending Physician Ronna Levin Krista L MD Referring Physician Date of Admission Apr 13, 2019 at 15:23 Home Medications & Allergies Home Medications Reviewed patient Home Medication Reconciliation performed by pharmacy medication reconciliations pharmacy intake technician and/or nursing. Patients Allergies have been reviewed. Allergies Allergies Coded Allergies No Known Drug Allergies (Unverified06/21/13) Past Ylvojgi-Dmskzw-Nthfwl Hx Past Med/Social Hx: Reviewed Nursing Past Med/Soc Hx, Reviewed and Corrections made Patient Social History Alcohol Use: Denies Use Recreational Drug Use: No Smoking Status: Never a Smoker 2nd Hand Smoke Exposure: No Recent Foreign Travel: No Contact w/other who traveled: No Recent Hopitalizations: No Recent Infectious Disease Expo: No Immunizations Up To Date Tetanus Booster (TDap): Less than 5yrs Date of Influenza Vaccine: Feb 21, 2019 Seasonal Allergies Seasonal Allergies: No Past Medical History Surgeries: Section Reproductive: No Female Reproductive Disorders: Ovarian Cyst, Polycystic Ovarian Dis History of Blood Disorders: No Adverse Reaction to Blood [place]: No Family History No Family History of: Abdominal aortic aneurysm Cancer Family history: Alzheimer's disease Family history: Breast disease Family history: Cardiovascular disease Family history: Diabetes mellitus Family history: Gastrointestinal disease Family history: Thyroid disorder History of - disorder Myocardial infarction Seizure disorder Stroke No Pertinent Family Hx Review of Systems Constitutional: see HPI EENTM: mouth pain, throat swelling Physical Exam Physical Exam Vital Signs Vital Signs - First Documented 04/13/19 09:57 Temp 36.7 Pulse 94 Resp 20 B/P (MAP) 118/83 (95) Pulse Ox 98 O2 Delivery Room Air Capillary Refill : Less Than 3 Seconds Height, Weight, BMI Height: 5'0" Weight: 280lbs. oz. 127.254167mg; 47.00 BMI Method:Stated General Appearance: Anxious, Chronically ill, Mild Distress, Obese Eyes: Right Eye Normal Inspection, Right Eye PERRL HEENT: PERRL/EOMI, Normal ENT Inspection, Pharynx Normal, Moist Mucous Membranes Neck: Full Range of Motion, Other (edema and erythema of the neck integument) Respiratory: Chest Non Tender, Lungs Clear, Normal Breath Sounds, No Accessory Muscle Use, No Respiratory Distress Cardiovascular: Regular Rate, Rhythm, No Edema, No Gallop, No JVD, No Murmur, Normal Peripheral Pulses Gastrointestinal: Normal Bowel Sounds, No Organomegaly, No Pulsatile Mass, Non Tender, Soft Back: Normal Inspection, No CVA Tenderness, No Vertebral Tenderness Extremity: Normal Capillary Refill, Normal Inspection, Normal Range of Motion, Non Tender, No Calf Tenderness, No Pedal Edema Neurologic/Psychiatric: Alert, Oriented x3, No Motor/Sensory Deficits, Normal Mood/Affect Skin: Normal Color, Warm/Dry Lymphatic: No Adenopathy Results Results/Procedures Labs Laboratory Tests 04/13/19 12:00 Patient resulted labs reviewed. Assessment/Plan Admission Diagnosis Assessment: Neck cellulitis Airway edema PCOS Obesity Plan: Broad spectrum abx Steroids Monitor airway Appreciate Dr Cross Admission Status: Inpatient Order (span 2 midnights) Reason for Inpatient Admission: Cellulitis of the neck with edema around the airway at risk for losing airway Diagnosis/Problems Diagnosis/Problems (1) Cellulitis, neck Status: Acute (2) Airway compromise (3) PCOS (polycystic ovarian syndrome) (4) Obesity Clinical Quality Measures DVT/VTE Risk/Contraindication: Risk Factor Score Per Nursin RFS Level Per Nursing on Admit: 3=High RONNA LEVIN DO Apr 13, 2019 21:22 POS
[2019-04-13] MEDS ORDERED: ALPRAZolam 0.25 MG (XANAX) TAB PO PRN (21:30)
[2019-04-13] MEDS ORDERED: CALCIUM CARBONATE 500 MG (TUMS) TAB.CHEW PO PRN (21:30)
[2019-04-13] MEDS ORDERED: DOCUSATE SODIUM 100 MG (COLACE) CAP PO PRN (21:30)
[2019-04-13] MEDS ORDERED: diphenhydrAMINE 25 MG TAB (BENADRYL) PO PRN (21:30)
[2019-04-13] MEDS ORDERED: ACETAMINOPHEN 500 MG TAB (TYLENOL) PO PRN (21:30)
[2019-04-13] MEDS ORDERED: MELATONIN 3 MG TABLET PO PRN (21:30)
[2019-04-13] MEDS ORDERED: LOPERAMIDE 2 MG (IMODIUM) TABLET PO PRN (21:30)
[2019-04-13] MEDS ORDERED: ENOXAPARIN 40 MG/0.4 ML (LOVENOX) SYR SC SCH (21:30)
[2019-04-14] VITALS (13 sets, daily range): BP systolic 106–191; BP diastolic 55–116
[2019-04-14] MEDS: DEXAMETHASONE 10 MG/ML (DECADRON) 1 ML VIAL IV SCH ×5 (01:28→23:53)
[2019-04-14] MEDS: NOREPINEPHRINE 4 MG in NS (IVPB) 250 ML IV SCH ×3 (01:45→08:16)
[2019-04-14 03:30] LABS: BASOPHILS % (AUTO) 0 % (0-10); EOSINOPHILS % (AUTO) 0 % (0-10); HEMATOCRIT 38 % (35-52); HEMOGLOBIN 12.4 G/DL (11.5-16.0); LYMPHOCYTES % (AUTO) 21 % (12-44); MEAN CORPUSCULAR HEMOGLOBIN 26 PG (25-34); MEAN CORPUSCULAR HGB CONC 33 G/DL (32-36); MEAN CORPUSCULAR VOLUME 81 FL (80-99); MEAN PLATELET VOLUME 10.4 FL (7.4-10.4); MONOCYTES # (AUTO) 0.1 X 10^3 (0.0-1.0); MONOCYTES % (AUTO) 2 % (0-12); NEUTROPHILS # (AUTO) 3.6 X 10^3 (1.8-7.8); NEUTROPHILS % (AUTO) 77 % (42-75); PLATELET COUNT 177 10^3/uL (130-400); RED CELL DISTRIBUTION WIDTH 12.8 % (10.0-14.5); WHITE BLOOD COUNT 4.7 10^3/uL (4.3-11.0)
--- NOTE | 2019-04-14 03:36 | Pulmonary Consultation ---
History of Present Illness History of Present Illness Date Seen by Provider: Apr 14, 2019 Time Seen by Provider: 13:32 Date of Admission History of Present Illness 29 yo presented secondary to worsening jaw and anterior neck pain. Denies any fever, chills, headache, nausea, vomiting, cough or shortness of breath. Also denies recent dental work, no facial or oral trauma, recent infections. During interview, patient developed acute RUQ pain that caused her to squirm off the bed and pace the room. States she has never had this pain before today. Allergies and Home Medications Allergies Coded Allergies: No Known Drug Allergies (Unverified , 06/21/13) Home Medications Amoxicillin/Potassium Clav 1 Each Tablet, 1 EACH PO BID Prescribed by: ADRIENNE CONNELLY on 04/15/19 1206 Past Suaysos-Ghztrf-Hikjpu Hx Past Med/Social Hx: Reviewed Nursing Past Med/Soc Hx, Reviewed and Corrections made Patient Social History Alcohol Use: Denies Use Recreational Drug Use: No Smoking Status: Never a Smoker 2nd Hand Smoke Exposure: No Recent Foreign Travel: No Contact w/Someone Who Travel: No Recent Infectious Disease Expo: No Recent Hopitalizations: No Physical Abuse: No Sexual Abuse: No Mistreated: No Fear: No Immunizations Up To Date Tetanus Booster (TDap): Less than 5yrs Date of Influenza Vaccine: Feb 21, 2019 Seasonal Allergies Seasonal Allergies: No Past Medical History Surgeries: Yes ( X3, fallopian tubes removed bilaterally) Section Respiratory: No Cardiac: No Neurological: No Reproductive Disorders: No Female Reproductive Disorders: Ovarian Cyst, Polycystic Ovarian Dis Genitourinary: No Gastrointestinal: No Musculoskeletal: No Endocrine: No HEENT: No Cancer: No Psychosocial: No Integumentary: No Blood Disorders: No Adverse Reaction/Blood Tranf: No Family Medical History No Family History of: Abdominal aortic aneurysm Cancer Family history: Alzheimer's disease Family history: Breast disease Family history: Cardiovascular disease Family history: Diabetes mellitus Family history: Gastrointestinal disease Family history: Thyroid disorder History of - disorder Myocardial infarction Seizure disorder Stroke No Pertinent Family Hx Review of Systems Time Seen by Provider: 13:33 Sepsis Event Evaluation Height, Weight, BMI Height: 5'0" Weight: 280lbs. oz. 127.673884ls; 47.00 BMI Method:Stated Exam Exam Vital Signs Date Time Temp Pulse Resp B/P (MAP) Pulse Ox O2 Delivery O2 Flow Rate FiO2 12/6/19 01:00 76 23 112/86 (95) 98 Room Air 04/14/19 00:40 78 04/14/19 00:00 35.8 04/14/19 00:00 81 12 191/102 (131) 96 Room Air 04/14/19 00:00 Room Air 04/13/19 23:00 92 16 66/40 (49) 98 Room Air 04/13/19 22:00 86 21 112/71 (85) 95 Room Air 04/13/19 21:00 86 12 108/61 (77) 96 Room Air 04/13/19 20:00 36.7 04/13/19 20:00 Room Air 04/13/19 20:00 85 21 105/59 (74) 98 Room Air 04/13/19 19:00 85 11 125/66 (85) 98 Room Air 04/13/19 18:40 100 04/13/19 18:00 84 31 128/74 (92) 97 Room Air 04/13/19 17:16 36.2 87 20 112/61 (78) 98 Room Air 04/13/19 17:13 81 04/13/19 16:57 36.7 88 17 122/82 (95) 97 Room Air 04/13/19 16:53 97 Room Air 04/13/19 16:40 97 Room Air 04/13/19 16:35 88 17 122/82 96 Room Air 04/13/19 09:57 36.7 94 20 118/83 (95) 98 Room Air I & O 04/14/19 07:00 Intake Total 2325 ml Balance 2325 ml Height & Weight Height: 5'0" Weight: 280lbs. oz. 127.036686zb; 47.00 BMI Method:Stated General Appearance: Anxious, Chronically ill, Mild Distress, Obese HEENT: PERRL/EOMI, Normal ENT Inspection, Pharynx Normal, Moist Mucous Membranes Neck: Full Range of Motion, Other (edema and erythema of the neck integument) Respiratory: Chest Non Tender, Lungs Clear, Normal Breath Sounds, No Accessory Muscle Use, No Respiratory Distress Cardiovascular: Regular Rate, Rhythm, No Edema, No Gallop, No JVD, No Murmur, Normal Peripheral Pulses Capillary Refill: Less Than 3 Seconds Extremity: Normal Capillary Refill, Normal Inspection, Normal Range of Motion, Non Tender, No Calf Tenderness, No Pedal Edema Neurologic/Psychiatric: Alert, Oriented x3, No Motor/Sensory Deficits, Normal Mood/Affect Skin: Normal Color, Warm/Dry Lymphatic: No Adenopathy Results Lab Laboratory Tests 04/13/19 12:00 Assessment/Plan Assessment/Plan Neck cellulitis with dysphagia -ENT following -Abx vanco and zosyn currently Airway edema - no stridor -Decadron Q 6 Obesity with PCOS DONNY YATES DO Apr 14, 2019 03:36
[2019-04-14 03:49] LABS: BUN/CREATININE RATIO 15; CALCIUM 8.3 MG/DL (8.5-10.1); CARBON DIOXIDE 18 MMOL/L (21-32); CHLORIDE 110 MMOL/L (98-107); CREATININE SERUM 0.82 MG/DL (0.60-1.30); GFR ESTIMATED > 60; GLUCOSE 174 MG/DL (70-105); MAGNESIUM 1.9 MG/DL (1.6-2.4); PHOSPHORUS 2.5 MG/DL (2.3-4.7); POTASSIUM 4.2 MMOL/L (3.6-5.0); SODIUM 139 MMOL/L (135-145)
[2019-04-14] MEDS: NS IV 1000 ML 1,000 ML IV SCH ×3 (04:29→21:51)
[2019-04-14] MEDS: VASOPRESSIN INJECTION 20 UNIT in NORMAL SALINE 100 ML IV SCH ×2 (04:29→08:16)
[2019-04-14] MEDS: VANCOMYCIN 1 GM/NS 250 ML IVPB IV SCH ×4 (05:23→18:06)
[2019-04-14] MEDS: PIPERACILLIN/TAZO 4.5 GM/NS 100 ML IV SCH ×6 (05:23→21:51)
--- NOTE | 2019-04-14 07:02 | Progress Note ---
Standard Progress Note Progress Notes/Assess & Plan Date Seen by a Provider: Apr 14, 2019 Time Seen by a Provider: 06:30 Progress/Assessment & Plan ENT-Jordana Ptient seen still with swelling-she states it is not as sore airway stable mbc-this am 4.7-this looks viral ORal cavity-bad tooth lower right side-no swelling or tenderness around it good airway-tonsils 3+ no sign of infection or peritonsilalr abscess neck-marked swelling -both parotid and submandibular regions-more firm on right but no abscess palpable would rec conitnued antibiotic coverage and monitor airway-looks like the airway is going to be stable overall-think this is going to have declare itself she will need ot have the bad tooth taken care of as well once she is imporoving and sweilling gong down would send home on antibiotics and steroid t aper-? cleocin to go home with will continue to follwo up with her SINGERAVA MD Apr 14, 2019 07:02 POS
[2019-04-14] MEDS: SENNA W/DOCUSATE (SENOKOT S) TABLET PO SCH ×2 (08:14→20:27)
--- NOTE | 2019-04-14 08:23 | Diagnostic Imaging Report ---
INDICATION: Dyspnea. TIME OF EXAM: 3:38 AM Correlation is made with prior chest from 12/22/2018. Heart size is stable. Lungs are clear. No infiltrates are seen. There is no effusion or pneumothorax. IMPRESSION: No acute cardiopulmonary process is detected. Dictated by: Dictated on workstation # [id number]
[2019-04-14] MEDS: ENOXAPARIN 40 MG/0.4 ML (LOVENOX) SYR SC SCH ×2 (10:55→20:29)
--- NOTE | 2019-04-14 11:00 | NUR ---
Pastoral care visit.
--- NOTE | 2019-04-14 12:52 | Progress Note - Hospitalist ---
Subjective HPI/CC On Admission Date Seen by Provider: Apr 14, 2019 Time Seen by Provider: 11:30 Chief complaint: Neck swelling with edema on CT scan surrounding airway History of present illness: This is a 28-year-old white female clinic patient of [facility] with a past medical history of metabolic syndrome and what appears to be PCOS with abdominal obesity who presents to the ER with neck swelling. Patient was found to have erythema around her neck and the adipose tissue under her chin CT scan was obtained showing edema surrounding the airway that could compromise her airway. She was given steroids in the ER Dr. Cross was consulted he evaluated her and did not feel like she was in any airway compromise currently. I did confer with him outside the room. She is placed on broad-spectrum antibiotics she will continue on IV steroids and patient will be monitored closely. Subjective/Events-last exam Jaw Cellulitis much improved Dr. Cross wants another 2-3 days of IV antibiotics Redness has now started Will transfer down to 4th floor since there is no evidence of any airway comprom ise with edema After rounds it was noted that her mumps came back positive so she was placed in isolation and Dr. Cross was updated Review of Systems General: Fatigue Objective Exam Vital Signs Vital Signs Date Time Temp Pulse Resp B/P (MAP) Pulse Ox O2 Delivery O2 Flow Rate FiO2 04/15/19 07:39 36.4 73 19 115/69 (84) 97 Room Air Capillary Refill : Less Than 3 Seconds General Appearance: No Apparent Distress, WD/WN, Chronically ill Neck: Limited Range of Motion, Lymphadenopathy (L), Lymphadenopathy (R) Respiratory: Lungs Clear Cardiovascular: Regular Rate, Rhythm Neurologic/Psychiatric: Alert, Oriented x3, No Motor/Sensory Deficits, Normal Mood/Affect Results/Procedures Lab Laboratory Tests 04/15/19 04:46 Patient resulted labs reviewed. Assessment/Plan Assessment and Plan Assess & Plan/Chief Complaint Assessment: Acute mumps just confirmed Neck cellulitis due to mumps edema Morbid obesity Plan: Update Dr. Cross on mumps status IV antibiotics Isolation Diagnosis/Problems Diagnosis/Problems (1) Cellulitis, neck Status: Acute (2) Mumps (3) Airway compromise (4) PCOS (polycystic ovarian syndrome) (5) Obesity Clinical Quality Measures DVT/VTE Risk/Contraindication: Risk Factor Score Per Nursin RFS Level Per Nursing on Admit: 3=High ADRIENNE CONNELLY DO Apr 14, 2019 12:52 POS
--- NOTE | 2019-04-14 13:10 | NUR ---
Report given to Marya TAYLOR 4th floor. Pt transferred to room 426 @ 1240. RN to assume care at this time.
[2019-04-15 00:05] VITALS: BP 121/71
[2019-04-15 03:40] VITALS: BP 128/76
[2019-04-15 04:58] LABS: BASOPHILS % (AUTO) 0 % (0-10); EOSINOPHILS % (AUTO) 0 % (0-10); HEMATOCRIT 35 % (35-52); HEMOGLOBIN 11.9 G/DL (11.5-16.0); LYMPHOCYTES # (AUTO) 1.2 X 10^3 (1.0-4.0); LYMPHOCYTES % (AUTO) 7 % (12-44); MEAN CORPUSCULAR HEMOGLOBIN 27 PG (25-34); MEAN CORPUSCULAR HGB CONC 34 G/DL (32-36); MEAN CORPUSCULAR VOLUME 79 FL (80-99); MEAN PLATELET VOLUME 10.4 FL (7.4-10.4); MONOCYTES # (AUTO) 0.6 X 10^3 (0.0-1.0); MONOCYTES % (AUTO) 3 % (0-12); NEUTROPHILS # (AUTO) 15.5 X 10^3 (1.8-7.8); NEUTROPHILS % (AUTO) 90 % (42-75); PLATELET COUNT 204 10^3/uL (130-400); RED CELL DISTRIBUTION WIDTH 12.9 % (10.0-14.5); WHITE BLOOD COUNT 17.3 10^3/uL (4.3-11.0)
[2019-04-15 05:19] LABS: ALANINE AMINOTRANSFERASE 48 U/L (0-55); ALBUMIN 3.7 GM/DL (3.2-4.5); ALKALINE PHOSPHATASE 52 U/L (40-136); BILIRUBIN,TOTAL 0.1 MG/DL (0.1-1.0); BUN/CREATININE RATIO 12; CALCIUM 8.4 MG/DL (8.5-10.1); CARBON DIOXIDE 19 MMOL/L (21-32); CHLORIDE 110 MMOL/L (98-107); CREATININE SERUM 0.81 MG/DL (0.60-1.30); GFR ESTIMATED > 60; GLUCOSE 193 MG/DL (70-105); POTASSIUM 3.8 MMOL/L (3.6-5.0); SODIUM 139 MMOL/L (135-145); TOTAL PROTEIN 6.8 GM/DL (6.4-8.2)
[2019-04-15] MEDS: VANCOMYCIN 1 GM/NS 250 ML IVPB IV SCH ×2 (05:26)
[2019-04-15] MEDS: DEXAMETHASONE 10 MG/ML (DECADRON) 1 ML VIAL IV SCH ×2 (05:26→10:44)
[2019-04-15] MEDS: PIPERACILLIN/TAZO 4.5 GM/NS 100 ML IV SCH ×4 (05:27→12:37)
--- NOTE | 2019-04-15 06:16 | CONSULTATION REPORT ---
DATE OF SERVICE: ENT CONSULTATION She is in room 426. REFERRING PHYSICIAN: Dr. Levin. REASON FOR CONSULTATION: Swollen neck. HISTORY OF PRESENT ILLNESS: The patient was admitted to the hospital earlier this morning because of marked swelling of the neck. A CT performed at that time revealed in the neck and marked enlargement of the parotid and submandibular glands. There was no swelling intraorally. There was narrowing of her airway at the level of the oropharynx. She reports her neck has been swollen for the past 2 to 3 days. It is tense and mildly tender. She knows she does have one bad tooth on the lower right side, but it has not been painful. She received vancomycin and Zosyn in the emergency room. Her white count on admission was 5.1. She has pending viral mumps titers from [facility]. It does hurt to swallow. She has no prior history of symptoms such as this. ALLERGIES: None known. MEDICATIONS: None. SOCIAL HISTORY: She currently lives in [place] and she was born in . She reports she is up-to-date on her immunizations. PHYSICAL EXAMINATION: GENERAL: She is in no acute distress. She is alert and oriented x3. She was sitting in her ICU bed, breathing normally with sats of 99. FACE: She had marked swelling of the face and parotid and submandibular region. This was bilateral and somewhat symmetrical. EYES: Vision grossly intact. Extraocular muscles intact. EARS: Canals were normal. Tympanic membranes were intact and mobile. There is no evidence of infection or fluid seen. NOSE: Normal nasal mucosa, no masses or lesions seen. There is no drainage present. Nasopharynx, not examined. ORAL CAVITY: Oral cavity showed no swelling of the floor of the mouth. She had good tongue mobility. She has a bad tooth on the lower right side. There was no marked swelling intraorally. Pharynx, tonsils were 3+ and erythematous, but there is no abscess seen or palpated. She has a good oropharyngeal airway. Larynx, her voice was normal. No hoarseness, no stridor. NECK: As above. Marked swelling noted in the parotid and submandibular region. I could not feel an abscess today. X-RAYS: CT scan was reviewed. There was no abscess seen on the exam. IMPRESSION: 1. Acute bilateral parotid/submandibular swelling. 2. Poor right lower tooth. 3. Possible neck cellulitis. RECOMMENDATIONS: Findings were discussed with the patient at this point, her airway is stable. We will continue to monitor it closely. We will await the mumps titers that she had drawn, although she reports she is up on her immunizations. I would continue her on the vancomycin and Zosyn as she appears to have cellulitis of the neck. At this point, there is no drainable abscess. We will follow along with you. Thank you for the consult. Job ID: [id number] DocumentID: [id number] Dictated Date: 04/15/2019 05:57:48 Fine Patcher Date: 04/15/2019 06:16:20 Dictated By: AVA SINGER MD
[2019-04-15 06:42] LABS: LYMPHOCYTES % (MANUAL) 5 %; MONOCYTES % (MANUAL) 6 %; NEUTROPHILS % (MANUAL) 89 %
--- NOTE | 2019-04-15 06:53 | Progress Note ---
Standard Progress Note Progress Notes/Assess & Plan Date Seen by a Provider: Apr 15, 2019 Time Seen by a Provider: 06:30 Progress/Assessment & Plan ENT-Tay Ptient seen still with swelling-she states it is not as sore airway stable mbc-this am 4.7-this looks viral ORal cavity-bad tooth lower right side-no swelling or tenderness around it good airway-tonsils 3+ no sign of infection or peritonsilalr abscess neck-marked swelling -both parotid and submandibular regions-more firm on right but no abscess palpable would rec conitnued antibiotic coverage and monitor airway-looks like the airway is going to be stable overall-think this is going to have declare itself she will need ot have the bad tooth taken care of as well once she is imporoving and sweilling gong down would send home on antibiotics and steroid t aper-? cleocin to go home with will continue to follwo up with her 04/15-ENT-Tay mumps tier positive-which exsplains the glandular swelling aidan diet well airway good sore throat resolved still has soem skin changes fro ma possible skin cellulitis ok to discharge on oral antibitics-something to cover staph mukps prescautions as well needs a return apt with ENT in about 2 weeks to make sure everything has resolved-will take some time for parotid and submandibular gland swelling to go down Final Diagnosis Mumps Neck skin cellulitis AVA SINGER MD Apr 15, 2019 06:53 POS
[2019-04-15 07:39] VITALS: BP 115/69
[2019-04-15] MEDS: NS IV 1000 ML 1,000 ML IV SCH (07:47)
[2019-04-15] MEDS: ENOXAPARIN 40 MG/0.4 ML (LOVENOX) SYR SC SCH (07:54)
[2019-04-15] MEDS: SENNA W/DOCUSATE (SENOKOT S) TABLET PO SCH (07:54)
[2019-04-15 12:03] VITALS: BP 126/63
[2019-04-15] MEDS ORDERED: AMOX-358 PO (12:06)
--- NOTE | 2019-04-15 12:07 | Discharge Summary ---
Discharge Summary Hospital Course Was the Problem List Reviewed?: Yes Problems/Dx: (1) Cellulitis, neck Status: Acute (2) Mumps (3) Airway compromise (4) PCOS (polycystic ovarian syndrome) (5) Obesity Hospital Course Date of Admission: Apr 13, 2019 at 15:23 Admission Diagnosis : Family Physician/Provider: Morelia Eugene MD Date of Discharge: 04/15/19 Discharge Diagnosis: Mumps, neck cellulitis Hospital Course: Patient was admitted from the ER due to severe soft tissue neck cellulitis patient was placed on broad-spectrum antibiotics and Dr. Cross was consulted due to airway edema so she placed in the ICU for close monitoring of airway compromise. Ultimately the mumps titer came back it was positive cellulitis of the neck was thoroughly treated with IV antibiotics so that was transitioned to p.o. and she was discharged in improved condition. Labs and Pending Lab Test: Laboratory Tests 04/15/19 04:46: White Blood Count 17.3H, Red Blood Count 4.46, Hemoglobin 11.9, Hematocrit 35, Mean Corpuscular Volume 79L, Mean Corpuscular Hemoglobin 27, Mean Corpuscular Hemoglobin Concent 34, Red Cell Distribution Width 12.9, Platelet Count 204, Me an Platelet Volume 10.4, Neutrophils (%) (Auto) 90H, Lymphocytes (%) (Auto) 7L, Monocytes (%) (Auto) 3, Eosinophils (%) (Auto) 0, Basophils (%) (Auto) 0, Neutrophils # (Auto) 15.5H, Lymphocytes # (Auto) 1.2, Monocytes # (Auto) 0.6, Eosinophils # (Auto) 0.0, Basophils # (Auto) 0.0, Neutrophils % (Manual) 89, Lymphocytes % (Manual) 5, Monocytes % (Manual) 6, Sodium Level 139, Potassium Level 3.8, Chloride Level 110H, Carbon Dioxide Level 19L, Anion Gap 10, Blood Urea Nitrogen 10, Creatinine 0.81, Estimat Glomerular Filtration Rate > 60, BUN/Creatinine Ratio 12, Glucose Level 193H, Calcium Level 8.4L, Corrected Calci um 8.6, Total Bilirubin 0.1, Aspartate Amino Transf (AST/SGOT) 33, Alanine Aminotransferase (ALT/SGPT) 48, Alkaline Phosphatase 52, Total Protein 6.8, Albumin 3.7 Microbiology 04/13/19 Throat Culture - Final, Complete No Beta Strep isolated Home Meds Active Augmentin 875-125 Tablet (Amoxicillin/Potassium Clav) 1 Each Tablet 1 Each PO BID Assessment/Pt Instructions [facility] is upcoming week Discharge Planning: <30 minutes discharge planning Discharge Instructions Discharge Diet: No Restrictions Activity as Tolerated: Yes Discharge Physical Examination Vital Signs Vital Signs Date Time Temp Pulse Resp B/P (MAP) Pulse Ox O2 Delivery O2 Flow Rate FiO2 04/15/19 12:03 36.8 77 20 126/63 (84) Room Air 04/15/19 07:39 97 General Appearance: No Apparent Distress, WD/WN Respiratory: Chest Non Tender, Lungs Clear, Normal Breath Sounds, No Accessory Muscle Use, No Respiratory Distress Cardiovascular: Regular Rate, Rhythm, No Edema, No Gallop, No JVD, No Murmur, Normal Peripheral Pulses Neurologic/Psychiatric: Alert, Oriented x3, No Motor/Sensory Deficits, Normal Mood/Affect Allergies: Coded Allergies: No Known Drug Allergies (Unverified , 06/21/13) Discharge Summary Date of Admission Apr 13, 2019 at 15:23 Date of Discharge Discharge Date: Apr 15, 2019 Admission Diagnosis Assessment: Neck cellulitis Airway edema PCOS Obesity Plan: Broad spectrum abx Steroids Monitor airway Appreciate Dr Cross Discharge Diagnosis Assessment: Acute mumps just confirmed Neck cellulitis due to mumps edema Morbid obesity Plan: Update Dr. Cross on mumps status IV antibiotics Isolation (1) Cellulitis, neck Status: Acute (2) Mumps (3) Airway compromise (4) PCOS (polycystic ovarian syndrome) (5) Obesity Clinical Quality Measures DVT/VTE Risk/Contraindication: Risk Factor Score Per Nursin RFS Level Per Nursing on Admit: 3=High ADRIENNE CONNELLY DO Apr 15, 2019 12:07 POS
--- NOTE | 2019-04-15 13:42 | NUR ---
ODILON RAJAN demonstrates understanding of discharge instructions and accurately returns instructions upon questioning. Copy of Post-Discharge Instructions and Medication Discharge Instructions given to patient. ODILON RAJAN is able to manage continuing needs after discharge. Patients belongings returned to patient. Skin dry and intact; no breakdown noted. Patient discharged from 426-1 on 04/15/19 at 1300. ODILON RAJAN left floor via wheel chair , accompanied by staff and family. f/u appointment given to patient and informed to pickle sorter her antibiotic as the apothecare and start today
== END 2019-04-15 13:45 | disposition home or self-care (01) | DRG 603 ==
LOC: EDUNIT# 09:40 → ER 09:41 → ICU 15:23 → 4TH 04-14 12:48
PROVIDERS: ADMIT Internal Medicine; ATTEND Internal Medicine
DX: L03.221 Cellulitis of neck (principal); B26.9 Mumps without complication; E66.01 Morbid (severe) obesity due to excess calories; Z68.42 Body mass index [BMI] 45.0-49.9, adult; E28.2 Polycystic ovarian syndrome; R59.0 Localized enlarged lymph nodes; R13.10 Dysphagia, unspecified; E88.81 Metabolic syndrome and other insulin resistance
CPT/HCPCS: 36415; 70491; 71045; 76705; 80048; 80053; 83690; 83735; 84100; 84703; 85007; 85025; 85027; 87081; 87430; 96361; 96365; 96367; 96375

== ENCOUNTER 2019-11-15 07:18 | Emergency (ER) | payer BC, OTHER ==
[~2019-11-15] VITALS: Ht 152 cm; Wt 100.0 kg
[~2019-11-15 07:18] MED LIST changes: +AMOX-358 PO
[2019-11-15] MEDS ORDERED: HYDROcodone/APAP 5 MG/325 MG (LORTAB) TAB PO ONE (07:45)
--- NOTE | 2019-11-15 07:46 | ED Lower Extremity ---
General Chief Complaint: Lower Extremity Stated Complaint: WC FALL Nursing Triage Note: PT WAS AT WORK AT [employer] AND MISSED HER STEP AND ENDED UP ON THE GROUND FROM THE SECOND STEP. C/O RIGHT KNEE PAIN Nursing Sepsis Screen: No Definite Risk History of Present Illness Date Seen by Provider: Nov 15, 2019 Time Seen by Provider: 07:41 Initial Comments As above 29-year-old female at work coming down a ladder thought she was at the bottom from the second step up missed bottom step ended up on floor claims she was unable to get up complains of pain in the right knee tib-fib and ankle denies any injury elsewhere Allergies and Home Medications Allergies Coded Allergies: No Known Drug Allergies (Unverified , 06/21/13) Home Medications Amoxicillin/Potassium Clav 1 Each Tablet, 1 EACH PO BID Prescribed by: ADRIENNE CONNELLY on 04/15/19 1206 Patient Home Medication List Home Medication List Reviewed: Yes Review of Systems Constitutional: no symptoms reported EENTM: no symptoms reported Respiratory: no symptoms reported Cardiovascular: no symptoms reported Gastrointestinal: no symptoms reported Genitourinary: no symptoms reported Musculoskeletal: other (right knee tib-fib and ankle pain) Skin: no symptoms reported Psychiatric/Neurological: No Symptoms Reported Past Xetbowe-Hfihrn-Mtiasi Hx Patient Social History Alcohol Use: Denies Use Recreational Drug Use: No Smoking Status: Never a Smoker 2nd Hand Smoke Exposure: No Recent Foreign Travel: No Contact w/Someone Who Travel: No Recent Infectious Disease Expo: No Recent Hopitalizations: No Physical Abuse: No Sexual Abuse: No Mistreated: No Fear: No Immunizations Up To Date Tetanus Booster (TDap): Less than 5yrs Date of Influenza Vaccine: Feb 21, 2019 Seasonal Allergies Seasonal Allergies: No Past Medical History Surgeries: Yes ( X 5) Section Respiratory: No Cardiac: No Neurological: No Reproductive Disorders: No Female Reproductive Disorders: Ovarian Cyst, Polycystic Ovarian Dis Genitourinary: No Gastrointestinal: No Musculoskeletal: No Endocrine: No HEENT: No Cancer: No Psychosocial: No Integumentary: No Blood Disorders: No Adverse Reaction/Blood Tranf: No Family Medical History No Family History of: Abdominal aortic aneurysm Cancer Family history: Alzheimer's disease Family history: Breast disease Family history: Cardiovascular disease Family history: Diabetes mellitus Family history: Gastrointestinal disease Family history: Thyroid disorder History of - disorder Myocardial infarction Seizure disorder Stroke No Pertinent Family Hx Physical Exam Vital Signs Vital Signs - First Documented 11/15/19 07:25 Temp 37.2 Pulse 84 Resp 16 B/P (MAP) 107/57 (74) Pulse Ox 100 O2 Delivery Room Air Capillary Refill : Less Than 3 Seconds Height, Weight, BMI Height: 5'0" Weight: 280lbs. oz. 127.542599gm; 43.00 BMI Method:Stated General Appearance: WD/WN, no apparent distress HEENT: PERRL/EOMI Neck: non-tender, full range of motion, supple Cardiovascular: regular rate, rhythm Respiratory: lungs clear Gastrointestinal: non tender, soft Hips: bilateral hip non-tender, bilateral hip normal range of motion Legs: bilateral leg normal inspection, bilateral leg soft tissue tenderness Knees: bilateral knee normal inspection, bilateral knee normal range of motion Ankles: bilateral ankle non-tender, bilateral ankle normal inspection Feet: bilateral foot non-tender, bilateral foot normal inspection Neurologic/Tendon: normal sensation, normal motor functions 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, no motor/sensory deficits Progress/Results/Core Measures Results/Orders My Orders Orders - PAYAL CANO MD Knee 3 View Right (11/15/19 07:34) Tibia Fibula 2 View Right (11/15/19 07:34) Ankle 3 View Right (11/15/19 07:34) Hydrocodone/Apap 5/325 Tablet (Lortab 5 (11/15/19 07:45) Ice: Apply To Affected Area (11/15/19 07:34) Medications Given in ED Current Medications Medications Dose Ordered Sig/Kayla Route Start Time Stop Time Status Last Admin Dose Admin Acetaminophen/ Hydrocodone Bitart 1 tab ONCE ONCE PO 11/15/19 07:45 11/15/19 07:46 DC 11/15/19 07:43 1 TAB Vital Signs/I&O 11/15/19 07:25 Temp 37.2 Pulse 84 Resp 16 B/P (MAP) 107/57 (74) Pulse Ox 100 O2 Delivery Room Air Blood Pressure Mean: 74 Progress Progress Note : Progress Note knee - neg tib/fib - neg ankle - neg pt's pain is poorly localized diffuse lateral below knee upper/mid tib fib Departure Impression Primary Impression: Sprain of knee Qualified Codes: S83.421A - Sprain of lateral collateral ligament of right knee, initial encounter Additional Impression: Leg strain Disposition: HOME, SELF-CARE Condition: Unchanged Departure-Patient Inst. Referrals: DIAMOND RODRIGUEZ MD (PCP/Family) Primary Care Physician Patient Instructions: Knee Sprain (DC), Lower Extremity Muscle Strain (DC) Add. Discharge Instructions: ice today use crutches to assist ambulation off work today and tomorrow Scripts Ibuprofen (Ibuprofen) 800 Mg Tablet 600 MG PO Q8H PRN for PAIN, #21 TAB 0 Refills Prov: PAYAL CANO MD 11/15/19 PAYAL CANO MD Nov 15, 2019 07:46
--- NOTE | 2019-11-15 08:19 | Diagnostic Imaging Report ---
INDICATION: Status post fall down steps at work this morning. Pain. TECHNIQUE: AP and lateral views of the right tibia and fibula CORRELATION STUDY: None FINDINGS: The tibia and fibula are intact. There is no evidence for acute fracture. Limited visualized portions of the knee and ankle are unremarkable. Soft tissues are unremarkable. IMPRESSION: 1.Negative for acute bony abnormality of the leg. Dictated by: Dictated on workstation # [id number]
--- NOTE | 2019-11-15 08:20 | Diagnostic Imaging Report ---
INDICATION: Status post fall down steps at work this morning. Pain. TECHNIQUE: 3 views of the right knee CORRELATION STUDY: None FINDINGS: The joint spaces are maintained. The articular surfaces are smooth and preserved. There is no acute bony abnormality. Small joint effusion. Soft tissues are unremarkable. IMPRESSION: 1. Negative for acute bony abnormality of the knee. Dictated by: Dictated on workstation # [id number]
--- NOTE | 2019-11-15 08:21 | Diagnostic Imaging Report ---
INDICATION: Status post fall down steps at work this morning. Pain. TECHNIQUE: Three views of the right ankle CORRELATION STUDY: None FINDINGS: The bony alignment is anatomic. The talar dome is intact. The ankle mortise is maintained. There is no acute fracture or dislocation. Soft tissues are unremarkable. IMPRESSION: Negative for acute bony abnormality of the ankle. Dictated by: Dictated on workstation # [id number]
[2019-11-15] MEDS ORDERED: IBUP-1780 PO (08:34)
[2019-11-15 08:45] VITALS: BP 122/72
== END 2019-11-15 09:00 | disposition home or self-care (01) ==
LOC: EDUNIT# 07:18 → ER FS 07:19
DX: S83.91XA Sprain of unspecified site of right knee, initial encounter (principal); S86.911A Strain of unspecified muscle(s) and tendon(s) at lower leg level, right leg, initial encounter; W10.9XXA Fall (on) (from) unspecified stairs and steps, initial encounter; Y92.59 Other trade areas as the place of occurrence of the external cause
CPT/HCPCS: 73562; 73590; 73610